=== PATIENT | male | born 1940 | race Caucasian/White ===

== ENCOUNTER 2017-05-28 15:50 | Observation (INO) | payer MEDICARE, BC, OTHER ==
[2017-05-28 16:27] LABS: Anisocytosis Slight; Basophils # (A) 0.1 k/uL (0-0.2); Basophils % (A) 1 %; CH 30.2; Eosinophils # (A) 0.2 k/uL (0-0.7); Eosinophils % (A) 2 %; HCT 44.3 % (39.0-53.0); HDW 2.95; Luc # (Auto) 0.38; Luc % (Auto) 4; Lymphocytes # (A) 1.5 k/uL (1.0-4.8); Lymphocytes % (A) 18 %; MCH 30.2 pg (25.0-35.0); MCHC 33.9 g/dL (31.0-37.0); MCV 89.2 fL (80.0-100.0); Mean Platelet Volume 7.8; Monocytes # (A) 0.9 k/uL (0-1.0); Monocytes % (A) 11 %; Neutrophils # (A) 5.7 k/uL (1.3-7.7); Neutrophils % (A) 65 %; RBC 4.96 m/uL (4.30-5.90); RDW 18.4 % (11.5-15.5); WBC 8.8 k/uL (3.8-10.6); WBC (Perox) 8.91
[2017-05-28 16:30] LABS: Calcium 8.6 mg/dL (8.4-10.2); Potassium 4.9 mmol/L (3.5-5.1); Total Bilirubin 0.6 mg/dL (0.2-1.3)
[2017-05-28] MEDS ORDERED: IOHEXOL 350 MG/ML 25 ML BOTTLE (ORAL USE) PO PRN (16:37)
[2017-05-28 16:42] LABS: Amorphous Sediment,Urine Rare /hpf; Appearance,Urine Cloudy (Clear); Bacteria,Urine Moderate /hpf; Bilirubin,Urine Negative (Negative); Glucose,Urine (UA) Trace (Negative); Granular Casts,Urine 35 /lpf (0); Ketones,Urine Negative (Negative); Leukocyte Esterase,Urine Negative (Negative); Mucus,Urine Rare /hpf; Nitrite,Urine Negative (Negative); PH, Urine 5.5 (5.0-8.0); Particle Count 14702; Protein,Urine 2+ (Negative); RBC,Urine 4 /hpf (0-5); Specific Gravity,Urine 1.013 (1.001-1.035); Squamous Epithelial Cell,Urine <1 /hpf (0-4); UA Billing (MACRO vs. MICRO) MICRO; Urobilinogen,Urine <2.0 mg/dL (<2.0); WBC,Urine 3 /hpf (0-5)
--- NOTE | 2017-05-28 17:26 | CT ---
EXAMINATION TYPE: CT abdomen pelvis wo con DATE OF EXAM: 05/28/2017 COMPARISON: Renal ultrasound 01/05/[address] 11/07/2014 HISTORY: 76-year-old male with pain, Nausea, vomiting and diarrhea. CT DLP: 2249.60 mGycm. Automated exposure control for dose reduction was used. TECHNIQUE: Contiguous axial scanning of the abdomen and pelvis without IV contrast. Coronal and sagit gemma reconstructions performed. FINDINGS: Exam limited due to lack of contrast and patient's arms over their lower chest/upper abdomen. For the limitations due to large patient body habitus and positioning. Coronary vessel calcifications are present. There appears to be strandy and interstitial areas of sca rring in the lower lungs and calcified pleural plaques suggesting prior asbestos exposure. No pleural effusion. Noncontrast appearance of the liver, adrenal glands, spleen, and pancreas show no gross evidence of b owel. There is a 2.3 cm hypodense lesion lateral lower pole right kidney incompletely characterized on nonc ontrast CT but demonstrates fluid attenuation suggestive of a cyst. A cyst was also seen on prior 201 5 ultrasound. 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 No dilated small bowel, free fluid, or free air. No mesenteric or retroperitoneal lymphadenopathy seen. Some questionable mild wall thickening versus nondistention of the mid to distal sigmoid colon. No pe ricolonic inflammatory change. Bladder partially distended. Extensive artifact from metal at the patient's hips limiting visualizati on of the pelvis. No abnormal fluid collection is clearly identified and no definite lymphadenopathy is seen. Bones: Right hip total arthroplasty. On the left, there is redemonstrated antibiotic impregnated ceme nt arthroplasty with continued presence of the medial left acetabular wall, unchanged from 2015. Mult ilevel degenerative changes to the spine with a levoconvex diagnosis and grade 1 anterolistheses at L 4-L5 and L5-S1. A right-sided L5 pars defects may be present. IMPRESSION: 1. Cholelithiasis without CT findings to suggest acute cholecystitis. 2. Slight circumferential wall thickening of the mid to distal sigmoid could be secondary to mild co litis or underdistention. 3. Asbestos related pleural disease and some interstitial scarring at the lung bases. Chronic appear ing changes at both hips.
[2017-05-28] MEDS ORDERED: ACETAMINOPHEN TAB 325 MG TAB PO PRN (19:46)
[2017-05-28] MEDS ORDERED: NALOXONE 0.4 MG/ML 1 ML VIAL IV PRN (19:46)
[2017-05-28] MEDS ORDERED: BISMUTH SUBSALICYLATE 4,192 MG/240 ML BOTTLE PO PRN (19:49)
[2017-05-28] MEDS ORDERED: CALCIUM CARBONATE 500 MG CHEWABLE PO PRN (19:49)
[2017-05-28] MEDS ORDERED: IPRATROPIUM-ALBUTEROL 3 ML NEB INHALATION PRN (19:49)
[2017-05-28] MEDS ORDERED: ALBUTEROL NEBULIZED 2.5 MG/3 ML INHALATION PRN (19:49)
[2017-05-28] MEDS ORDERED: LOPERAMIDE 2 MG CAP PO PRN (19:49)
[2017-05-28] MEDS ORDERED: MELATONIN 3 MG TABLET PO PRN (19:49)
[2017-05-28] MEDS ORDERED: HYDROcodone/APAP 5-325MG 1 EACH TAB PO PRN (19:49)
[2017-05-28] MEDS ORDERED: MAGNESIUM HYDROXIDE 2,400 MG/10 ML CUP PO PRN (19:49)
[2017-05-28] MEDS ORDERED: MYLANTA PO PRN (19:49)
[2017-05-28] MEDS ORDERED: guaiFENesin SYRUP 100MG/5ML 200 MG/10 ML CUP PO PRN (19:49)
[2017-05-28] MEDS ORDERED: ONDANSETRON 4 MG TAB PO PRN (19:49)
--- NOTE | 2017-05-28 19:58 | ED ---
Abdominal Pain HPI - General Chief Complaint: Abdominal Pain Stated Complaint: abd pain Time Seen by Provider: 05/28/17 16:10 Source: patient, EMS Mode of arrival: EMS - History of Present Illness Initial Comments: This patient is a 76-year-old man who presents to be valid for left upper quadrant pain that is been going on since earlier today. The patient states that it started when he was eating his afternoon meal. He is not able to characterize it well. He notes that he had the onset of nausea and vomiting as well. The patient states that the pain gets worse if he presses on his abdomen. He has not noted any relieving factors. MD Complaint: abdominal pain -: hour(s) Location: [facility] Radiation: none Migration to: no migration Severity: moderate Consistency: constant Improves With: nothing Worsens With: nothing Associated Symptoms: nausea, vomiting - Related Data Home Medications Medication Instructions Recorded Confirmed Atorvastatin [Lipitor] 80 mg PO HS 10/29/14 06/12/17 Docusate Sodium [Dulcolax Stool 100 mg PO DAILY 10/29/14 06/12/17 Softener] Ferrous Sulfate [Feosol] 325 mg PO BID 10/29/14 06/12/17 Loratadine [Claritin] 10 mg PO DAILY 10/29/14 06/12/17 Melatonin 3 mg PO HS 10/29/14 06/12/17 Ondansetron [Zofran] 4 mg PO Q6HR PRN 10/29/14 06/12/17 guaiFENesin SYRUP 100MG/5ML 200 mg PO Q12H PRN 10/29/14 06/12/17 [Robitussin] Aspirin EC [Ecotrin] 325 mg PO DAILY 05/28/17 06/12/17 Bismuth Subsalicylate 262 mg PO Q4H PRN 05/28/17 06/12/17 [Pepto-Bismol] Calcium Carbonate [Tums] 500 mg PO Q6H PRN 05/28/17 06/12/17 Colchicine 0.6 mg PO BID 05/28/17 06/12/17 Famotidine [Pepcid] 20 mg PO QAM 05/28/17 06/12/17 Furosemide [Lasix] 20 mg PO Q48H 05/28/17 06/12/17 Insulin Aspart Protam & Aspart 10 unit SQ DAILY@1700 05/28/17 06/12/17 [NovoLOG MIX 70-30 Flexpen] Insulin Aspart Protam & Aspart 35 unit SQ DAILY@0900 05/28/17 06/12/17 [NovoLOG MIX 70-30 Flexpen] Insulin Lispro [humaLOG Kwikpen] See Protocol SQ ACHS 05/28/17 06/12/17 Ipratropium-Albuterol Nebulize 3 ml INHALATION RT-QID PRN 05/28/17 06/12/17 [Duoneb 0.5 mg-3 mg/3 ml Soln] Ketoconazole 2% Shampoo [Nizoral] 1 applic TOPICAL SUTH 05/28/17 06/12/17 Loperamide [Imodium] 2 mg PO Q6H PRN 05/28/17 06/12/17 Metoprolol Tartrate [Lopressor] 12.5 mg PO Q12H 05/28/17 06/12/17 Mirtazapine 7.5 mg PO HS 05/28/17 06/12/17 Mylanta 30 ml PO Q4H PRN 05/28/17 06/12/17 SILVER sulfADIAZINE Cream 1 applic TOPICAL DAILY PRN 05/28/17 06/12/17 [Silvadene 1% Cream] Tiotropium 18 Mcg/Puff [Spiriva] 1 cap INHALATION RT-DAILY 05/28/17 06/12/17 L.acidoph,Paracasei, B.lactis 1 cap PO BID 06/04/17 06/12/17 [Probiotic] Liraglutide [Victoza 2-Yazan] 1.8 mg SQ QAM 06/04/17 06/12/17 Tolnaftate [Tinactin Powder] 1 applic TOPICAL BID 06/04/17 06/12/17 Magnesium Hydroxide [Milk of 7,200 mg PO Q4H PRN 06/12/17 06/12/17 Magnesia Concentrate] Multivitamins, Thera [Multivitamin 1 tab PO DAILY 06/12/17 06/12/17 (formulary)] Previous Rx's Medication Instructions Recorded HYDROcodone/APAP 5-325MG [[place] 1 tab PO Q6HR PRN #30 tab 06/09/17 5-325] Levofloxacin [Levaquin] 250 mg PO DAILY #7 tablet 09/22/17 metroNIDAZOLE [Flagyl] 500 mg PO TID #21 tab 06/09/17 Allergies Allergy/AdvReac Type Severity Reaction Status Date / Time meropenem [From Merrem] Allergy Severe Rash/Hives Verified 06/12/17 17:44 Cephalosporins Allergy Unknown Verified 05/28/17 16:17 morphine Allergy Unknown Verified 06/12/17 17:44 Penicillins Allergy Unknown Verified 05/28/17 16:17 vancomycin Allergy Rash/Hives Verified 06/12/17 17:44 Review of Systems ROS Statement: Those systems with pertinent positive or pertinent negative responses have been documented in the HPI. ROS Other: All systems not noted in ROS Statement are negative. Limitations: ROS unobtainable due to patients medical condition (The ROS is limited as the patient does appear to have some mild underlying ) Constitutional: Denies: fever, chills Respiratory: Denies: cough, dyspnea Cardiovascular: Denies: chest pain, edema, syncope Gastrointestinal: Reports: abdominal pain, nausea, vomiting. Denies: diarrhea, constipation Genitourinary: Denies: dysuria, hematuria Musculoskeletal: Denies: back pain Skin: Denies: rash Neurological: Denies: headache, weakness, numbness Past Medical History Past Medical History: COPD, Diabetes Mellitus, Hyperlipidemia, Hypertension, Renal Disease Additional Past Medical History / Comment(s): Asbestos lung disease with fibrosis, gout, encephalopathy, DJD, obesity with BMI of 33, skin cancer, ongoing difficulties with the left total hip arthroplasty and these complications included joint infection which ultimately required removal of hardware and placement of antibiotic spacer., C. difficile colitis March 2014 History of Any Multi-Drug Resistant Organisms: MRSA, VRE Date of last positivie culture/infection: Oct 2013, 01/05/2015 MDRO Source:: left hip, URINE VRE Past Surgical History: Appendectomy, Orthopedic Surgery, Tonsillectomy Additional Past Surgical History / Comment(s): [place] Total knee replacements, right total hip replacement, total left hip July 2013 and revision September 2013 due to septic athritis, I&D of seroma of the left total hip 10/09/2013, hemorrhoid ligation which required suturing, EGD with biopsy with mild gastritis and small hiatal hernia, colonoscopy with diverticulosis and internal and external hemorrhoids. Past Anesthesia/Blood Transfusion Reactions: Previous Problems w/ Anesthesia, Postoperative Nausea & Vomiting (PONV) Past Psychological History: No Psychological Hx Reported Smoking Status: Former smoker Past Alcohol Use History: Rare Past Drug Use History: None Reported - Past Family History Mother Family Medical History: Myocardial Infarction ([place]) General Exam General appearance: alert, in no apparent distress, obese Head exam: Present: atraumatic, normocephalic Eye exam: Present: normal appearance. Absent: scleral icterus, conjunctival injection ENT exam: Present: mucous membranes dry Respiratory exam: Present: normal lung sounds bilaterally. Absent: respiratory distress, wheezes, rales, rhonchi, stridor Cardiovascular Exam: Present: regular rate, normal rhythm, normal heart sounds. Absent: systolic murmur, diastolic murmur, rubs, gallop GI/Abdominal exam: Present: soft, tenderness (Left upper quadrant), diminished bowel sounds. Absent: distended, guarding, rebound, rigid, mass, pulsatile mass , hernia Extremities exam: Present: normal inspection, normal capillary refill. Absent: pedal edema, calf tenderness Neurological exam: Present: alert Skin exam: Present: warm, dry, intact, normal color. Absent: rash Course Vital Signs 05/28/17 05/28/17 05/28/17 15:52 16:30 17:41 Temperature 97.9 F Pulse Rate 89 90 90 Respiratory 18 18 18 Rate Blood Pressure 102/66 108/65 125/80 O2 Sat by Pulse 92 L 100 100 Oximetry 05/28/17 05/28/17 19:09 20:08 Temperature Pulse Rate 89 80 Respiratory 18 16 Rate Blood Pressure 114/72 110/61 O2 Sat by Pulse 97 96 Oximetry Medical Decision Making - Lab Data Result diagrams: 05/31/17 08:14 05/31/17 08:14 Lab Results 05/28/17 05/28/17 05/28/17 Range/Units 16:04 16:04 16:04 WBC 8.8 (3.8-10.6) k/uL RBC 4.96 (4.30-5.90) m/uL Hgb 15.0 (13.0-17.5) gm/dL Hct 44.3 (39.0-53.0) % MCV 89.2 (80.0-100.0) fL MCH 30.2 (25.0-35.0) pg MCHC 33.9 (31.0-37.0) g/dL RDW 18.4 H (11.5-15.5) % Plt Count 224 (150-450) k/uL Neutrophils % 65 % Lymphocytes % 18 % Monocytes % 11 % Eosinophils % 2 % Basophils % 1 % Neutrophils # 5.7 (1.3-7.7) k/uL Lymphocytes # 1.5 (1.0-4.8) k/uL Monocytes # 0.9 (0-1.0) k/uL Eosinophils # 0.2 (0-0.7) k/uL Basophils # 0.1 (0-0.2) k/uL Anisocytosis Slight Sodium 136 L (137-145) mmol/L Potassium 4.9 (3.5-5.1) mmol/L Chloride 107 (98-107) mmol/L Carbon Dioxide 18 L (22-30) mmol/L Anion Gap 11 mmol/L BUN 58 H (9-20) mg/dL Creatinine 2.70 H (0.66-1.25) mg/dL Est GFR (MDRD) Af Amer 28 (>60 ml/min/1.73 sqM) Est GFR (MDRD) Non-Af 23 (>60 ml/min/1.73 sqM) Glucose 194 H (74-99) mg/dL Plasma Lactic Acid Wilber 1.0 (0.7-2.0) mmol/L Calcium 8.6 (8.4-10.2) mg/dL Total Bilirubin 0.6 (0.2-1.3) mg/dL AST 152 H (17-59) U/L ALT 190 H (21-72) U/L Alkaline Phosphatase 173 H (38-126) U/L Troponin I (0.000-0.034) ng/mL Total Protein 7.0 (6.3-8.2) g/dL Albumin 3.5 (3.5-5.0) g/dL Amylase 40 (30-110) U/L Lipase 184 (23-300) U/L Urine Color Urine Appearance (Clear) Urine pH (5.0-8.0) Ur Specific [place] (1.001-1.035) Urine Protein (Negative) Urine Glucose (UA) (Negative) Urine Ketones (Negative) Urine Blood (Negative) Urine Nitrite (Negative) Urine Bilirubin (Negative) Urine Urobilinogen (<2.0) mg/dL Ur Leukocyte Esterase (Negative) Urine RBC (0-5) /hpf Urine WBC (0-5) /hpf Ur Squamous Epith Cells (0-4) /hpf Amorphous Sediment (None) /hpf Urine Bacteria (None) /hpf Granular Casts (0) /lpf Urine Mucus (None) /hpf 05/28/17 05/28/17 Range/Units 16:04 16:20 WBC (3.8-10.6) k/uL RBC (4.30-5.90) m/uL Hgb (13.0-17.5) gm/dL Hct (39.0-53.0) % MCV (80.0-100.0) fL MCH (25.0-35.0) pg MCHC (31.0-37.0) g/dL RDW (11.5-15.5) % Plt Count (150-450) k/uL Neutrophils % % Lymphocytes % % Monocytes % % Eosinophils % % Basophils % % Neutrophils # (1.3-7.7) k/uL Lymphocytes # (1.0-4.8) k/uL Monocytes # (0-1.0) k/uL Eosinophils # (0-0.7) k/uL Basophils # (0-0.2) k/uL Anisocytosis Sodium (137-145) mmol/L Potassium (3.5-5.1) mmol/L Chloride (98-107) mmol/L Carbon Dioxide (22-30) mmol/L Anion Gap mmol/L BUN (9-20) mg/dL Creatinine (0.66-1.25) mg/dL Est GFR (MDRD) Af Amer (>60 ml/min/1.73 sqM) Est GFR (MDRD) Non-Af (>60 ml/min/1.73 sqM) Glucose (74-99) mg/dL Plasma Lactic Acid Wilber (0.7-2.0) mmol/L Calcium (8.4-10.2) mg/dL Total Bilirubin (0.2-1.3) mg/dL AST (17-59) U/L ALT (21-72) U/L Alkaline Phosphatase (38-126) U/L Troponin I 0.018 (0.000-0.034) ng/mL Total Protein (6.3-8.2) g/dL Albumin (3.5-5.0) g/dL Amylase (30-110) U/L Lipase (23-300) U/L Urine Color Yellow Urine Appearance Cloudy (Clear) Urine pH 5.5 (5.0-8.0) Ur Specific [place] 1.013 (1.001-1.035) Urine Protein 2+ H (Negative) Urine Glucose (UA) Trace H (Negative) Urine Ketones Negative (Negative) Urine Blood Moderate H (Negative) Urine Nitrite Negative (Negative) Urine Bilirubin Negative (Negative) Urine Urobilinogen <2.0 (<2.0) mg/dL Ur Leukocyte Esterase Negative (Negative) Urine RBC 4 (0-5) /hpf Urine WBC 3 (0-5) /hpf Ur Squamous Epith Cells <1 (0-4) /hpf Amorphous Sediment Rare H (None) /hpf Urine Bacteria Moderate H (None) /hpf Granular Casts 35 (0) /lpf Urine Mucus Rare H (None) /hpf Disposition Clinical Impression: Elevated liver enzymes, Abdominal pain Disposition: ADMITTED IP TO THIS HOSP Condition: Stable
[2017-05-28] MEDS: SYMBICORT 160-4.5 MCG INHALER INHALATION SCH (20:39)
[2017-05-28 20:47] LABS: Glucose,Whole Blood 143 mg/dL (75-99)
[2017-05-28] MEDS ORDERED: ANTIFUNGAL TOPICAL SCH (21:00)
[2017-05-28] MEDS ORDERED: FAMOTIDINE 20 MG TAB PO SCH (21:00)
[2017-05-28] MEDS: METOPROLOL TARTRATE 12.5 MG TAB PO SCH (22:55)
[2017-05-28] MEDS: MIRTAZAPINE 15 MG TAB PO SCH (22:56)
[2017-05-28] MEDS: SODIUM CHLORIDE 0.9% 1,000 ML IV SCH (23:39)
[2017-05-28] MEDS: KETOCONAZOLE 2% SHAMPOO 1 APPLIC/ML TOPICAL SCH (23:40)
[2017-05-28] MEDS: ATORVASTATIN 80 MG TAB PO SCH (23:40)
[2017-05-28] MEDS: MINERAL OIL-WHITE PETROLATUM 120 GM JAR TOPICAL SCH (23:41)
[2017-05-29] MEDS: SODIUM CHLORIDE 0.9% 1,000 ML IV SCH ×2 (05:41→17:01)
[2017-05-29] MEDS: SYMBICORT 160-4.5 MCG INHALER INHALATION SCH ×2 (07:31→20:17)
[2017-05-29 07:39] LABS: Glucose,Whole Blood 163 mg/dL (75-99)
[2017-05-29 07:54] LABS: Calcium 8.2 mg/dL (8.4-10.2); Potassium 4.7 mmol/L (3.5-5.1)
[2017-05-29] MEDS: TIOTROPIUM 18 MCG/PUFF INHALER INHALATION SCH (07:56)
[2017-05-29] MEDS: MINERAL OIL-WHITE PETROLATUM 120 GM JAR TOPICAL SCH ×2 (08:18→20:39)
[2017-05-29] MEDS: INSULIN LISPRO (humaLOG) 300 UNIT/3 ML VIAL SQ SCH ×4 (08:20→21:14)
[2017-05-29] MEDS: METOPROLOL TARTRATE 12.5 MG TAB PO SCH ×3 (08:26→21:09)
[2017-05-29] MEDS: LORATADINE 10 MG TAB PO SCH (08:29)
[2017-05-29] MEDS: FERROUS SULFATE 325 MG TAB PO SCH ×2 (08:29→17:02)
[2017-05-29] MEDS: DOCUSATE 100 MG CAP PO SCH (08:29)
[2017-05-29 08:44] LABS: Anisocytosis Slight; Aty Lym Flag Slight; CH 29.7; CHCM 33.2; HCT 38.4 % (39.0-53.0); HDW 2.87; HGB 12.8 gm/dL (13.0-17.5); MCH 30.1 pg (25.0-35.0); MCHC 33.4 g/dL (31.0-37.0); MCV 89.9 fL (80.0-100.0); Mean Platelet Volume 8.9; RBC 4.27 m/uL (4.30-5.90); RDW 18.2 % (11.5-15.5); WBC 8.1 k/uL (3.8-10.6); WBC (Perox) 8.25
[2017-05-29 08:57] LABS: Hemoglobin A1C 8.8 % (4.2-6.1)
--- NOTE | 2017-05-29 09:42 | P.HPIM ---
History of Present Illness H&P Date: 05/29/17 Chief Complaint: Abdominal Pain This 76-year-old male who presented to the emergency room on 2016 with a chief complaint of abdominal pain. The patient's pain is mostly on the left upper and lower quadrant. Patient states he's been experiencing nausea and vomiting for approximately one week but has had persistent diarrhea since 05/06/2017. The patient states during one of his vomiting episodes he swallowed his emesis back down and the patient states that it felt like it got stuck and that is when his abdominal pain began. The patient states prior to him experiencing nausea and vomiting his appetite was good and he was eating and drinking without problems. Patient is a history of COPD, diabetes mellitus, hypertension, hyperlipidemia, and chronic renal disease. He currently resides at [facility] on [facility]. The patient was admitted for further evaluation and consults were placed to Dr. West. Upon examination this morning, the patient states he is feeling better. He does have some abdominal pain upon palpation on the left upper and lower quadrant. He denies having any nausea or vomiting this morning. He remains NPO. The patient did work with therapy this morning and was able to sit on the side of the bed. Review of Systems GENERAL: Patient denies fever, chills, weight gain, or weight loss. RESPIRATORY: Denies dyspnea, cough, sputum production, or hemoptysis. CARDIOVASCULAR: Denies chest pain, pressure, palpitations, claudication, or arrhythmias. GI: Positive for abdominal pain and diarrhea. Denies incontinence, heartburn, nausea, constipation, or blood in the stool. : Denies urinary frequency, burning, dysuria, or cloudy urine. Denies blood in the urine. MUSCULOSKELETAL: Positive for generalized weakness. Denies pain or tenderness. Denies cramps, swelling, or decreased range of motion. Past Medical History Past Medical History: COPD, Diabetes Mellitus, Hyperlipidemia, Hypertension, Renal Disease Additional Past Medical History / Comment(s): Asbestos lung disease with fibrosis, gout, encephalopathy, DJD, obesity with BMI of 33, skin cancer, ongoing difficulties with the left total hip arthroplasty and these complications included joint infection which ultimately required removal of hardware and placement of antibiotic spacer., C. difficile colitis March 2014 History of Any Multi-Drug Resistant Organisms: MRSA, VRE Date of last positivie culture/infection: Oct 2013, 01/05/2015 MDRO Source:: left hip, URINE VRE Past Surgical History: Appendectomy, Orthopedic Surgery, Tonsillectomy Additional Past Surgical History / Comment(s): [place]ugio Total knee replacements, right total hip replacement, total left hip July 2013 and revision September 2013 due to septic athritis, I&D of seroma of the left total hip 10/09/2013, hemorrhoid ligation which required suturing, EGD with biopsy with mild gastritis and small hiatal hernia, colonoscopy with diverticulosis and internal and external hemorrhoids. Past Anesthesia/Blood Transfusion Reactions: Previous Problems w/ Anesthesia, Postoperative Nausea & Vomiting (PONV) Past Psychological History: No Psychological Hx Reported Smoking Status: Former smoker Past Alcohol Use History: Rare Additional Past Alcohol Use History / Comment(s): Patient was smoker 2 packs per day for 35 years and quit 40 years ago. He denies any medical marijuana, marijuana or street drug use. He occasionally drinks a beer. He is currently residing at [facility]. Normally he will be living at home with his . 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 Past Drug Use History: None Reported - Past Family History Mother Family Medical History: Myocardial Infarction ([place]) Medications and Allergies Home Medications Medication Instructions Recorded Confirmed Type Albuterol Nebulized [Ventolin 2.5 mg INHALATION RT-Q4H PRN 10/29/14 05/28/17 History Nebulized] Atorvastatin [Lipitor] 80 mg PO HS@2100 10/29/14 05/28/17 History Docusate Sodium [Dulcolax Stool 100 mg PO DAILY 10/29/14 05/28/17 History Softener] Ferrous Sulfate [Feosol] 325 mg PO BID@0900,1700 10/29/14 05/28/17 History Loratadine [Claritin] 10 mg PO DAILY@0900 10/29/14 05/28/17 History Melatonin 3 mg PO HS PRN 10/29/14 05/28/17 History Multivitamin [Men's Multi-Vitamin] 1 tab PO DAILY 10/29/14 05/28/17 History Ondansetron [Zofran] 4 mg PO Q6HR PRN 10/29/14 05/28/17 History guaiFENesin SYRUP 100MG/5ML 10 ml PO BID PRN 10/29/14 05/28/17 History [Robitussin] HYDROcodone/APAP 5-325MG [[place] 1 tab PO Q6HR PRN 01/06/15 05/28/17 History 5-325] Inzo Barrier Cream 1 applic TOPICAL BID 01/06/15 05/28/17 History Acetaminophen Tab [Tylenol Tab] 650 mg PO Q6H PRN 05/28/17 05/28/17 History Antifungal Powder 1 applic TOPICAL BID 05/28/17 05/28/17 History Aspirin EC [Ecotrin] 325 mg PO DAILY@1700 05/28/17 05/28/17 History Bismuth Subsalicylate 524 mg PO Q4H PRN 05/28/17 05/28/17 History [Pepto-Bismol] Budesonide/Formoterol Fumarate 2 puff INHALATION RT-BID 05/28/17 05/28/17 History [Symbicort 160-4.5 Mcg Inhaler] Calcium Carbonate [Tums] 500 mg PO Q6H PRN 05/28/17 05/28/17 History Colchicine 0.6 mg PO BID 05/28/17 05/28/17 History Dulaglutide [Trulicity] 0.75 mg SQ WE 05/28/17 05/28/17 History Famotidine [Pepcid] 20 mg PO DAILY 05/28/17 05/28/17 History Furosemide [Lasix] 20 mg PO Q48H 05/28/17 05/28/17 History Insulin Aspart Protam & Aspart 10 unit SQ DAILY@1700 05/28/17 05/28/17 History [NovoLOG MIX 70-30 Flexpen] Insulin Aspart Protam & Aspart 35 unit SQ DAILY@0905/28/17 05/28/17 History [NovoLOG MIX 70-30 Flexpen] Insulin Lispro [humaLOG Kwikpen] See Protocol SQ ACHS 05/28/17 05/28/17 History Ipratropium-Albuterol Nebulize 3 ml INHALATION RT-QID PRN 05/28/17 05/28/17 History [Duoneb 0.5 mg-3 mg/3 ml Soln] Ketoconazole 2% Shampoo [Nizoral] 1 applic TOPICAL SUTH 05/28/17 05/28/17 History Loperamide [Imodium] 2 mg PO QID PRN 05/28/17 05/28/17 History Magnesium Hydroxide [Milk of 2,400 mg PO Q4H PRN 05/28/17 05/28/17 History Magnesia] Metoprolol Tartrate [Lopressor] 12.5 mg PO BID 05/28/17 05/28/17 History Mirtazapine 7.5 mg PO HS@2100 05/28/17 05/28/17 History Mylanta 30 ml PO Q4H PRN 05/28/17 05/28/17 History SILVER sulfADIAZINE Cream 1 applic TOPICAL DAILY PRN 05/28/17 05/28/17 History [Silvadene 1% Cream] Tiotropium 18 Mcg/Puff [Spiriva] 1 cap INHALATION RT-DAILY 05/28/17 05/28/17 History Allergies Allergy/AdvReac Type Severity Reaction Status Date / Time meropenem [From Merrem] Allergy Severe Rash/Hives Verified 05/28/17 16:17 Cephalosporins Allergy Unknown Verified 05/28/17 16:17 morphine Allergy Unknown Verified 05/28/17 16:17 Penicillins Allergy Unknown Verified 05/28/17 16:17 vancomycin Allergy Rash/Hives Verified 05/28/17 16:17 Physical Exam Vitals: Vital Signs Temp Pulse Pulse Resp BP BP Pulse Ox 05/29/17 07:32 92 L 05/29/17 07:00 96.8 F L 77 18 115/69 96 05/28/17 22:52 96.7 F L 89 16 107/70 92 L 05/28/17 20:08 80 16 110/61 96 05/28/17 19:09 89 18 114/72 97 05/28/17 17:41 90 18 125/80 100 05/28/17 16:30 90 18 108/65 100 05/28/17 15:52 97.9 F 89 18 102/66 92 L Intake and Output 05/28/17 05/29/17 05/29/17 22:59 06:59 14:59 Other: Voiding Method Urinal Diaper # Voids 0 1 Weight 115.5 kg GENERAL: Alert and oriented. Appears in no acute distress. Pleasant. RESPIRATORY: Lungs clear bilaterally, diminished in the bases. No use of accessory muscles. Patient maintaining oxygen saturation greater than 92% on 2 L nasal cannula. CARDIOVASCULAR: Regular rhythm and rate. S1 and S2 noted. No JVD noted. EXTREMITIES: Slight discoloration noted to lower extremities. No edema noted. Palpable pedal pulses +2. ABDOMEN: Obese, soft and round, decreased bowel sounds auscultated 4 quadrants. Pain and tenderness noted to left upper and lower quadrant upon palpation. Results CBC & Chem 7: 05/29/17 07:01 05/29/17 07:01 Labs: Abnormal Lab Results - Last 24 Hours (Table) 05/28/17 05/28/17 05/28/17 Range/Units 16:04 16:04 16:20 RBC (4.30-5.90) m/uL Hgb (13.0-17.5) gm/dL Hct (39.0-53.0) % RDW 18.4 H (11.5-15.5) % Sodium 136 L (137-145) mmol/L Chloride (98-107) mmol/L Carbon Dioxide 18 L (22-30) mmol/L BUN 58 H (9-20) mg/dL Creatinine 2.70 H (0.66-1.25) mg/dL Glucose 194 H (74-99) mg/dL POC Glucose (mg/dL) (75-99) mg/dL Calcium (8.4-10.2) mg/dL AST 152 H (17-59) U/L ALT 190 H (21-72) U/L Alkaline Phosphatase 173 H (38-126) U/L Urine Protein 2+ H (Negative) Urine Glucose (UA) Trace H (Negative) Urine Blood Moderate H (Negative) Amorphous Sediment Rare H (None) /hpf Urine Bacteria Moderate H (None) /hpf Urine Mucus Rare H (None) /hpf 05/28/17 05/29/17 05/29/17 Range/Units 20:43 07:01 07:01 RBC 4.27 L (4.30-5.90) m/uL Hgb 12.8 L (13.0-17.5) gm/dL Hct 38.4 L (39.0-53.0) % RDW 18.2 H (11.5-15.5) % Sodium (137-145) mmol/L Chloride 110 H (98-107) mmol/L Carbon Dioxide 18 L (22-30) mmol/L BUN 60 H (9-20) mg/dL Creatinine 2.77 H (0.66-1.25) mg/dL Glucose 154 H (74-99) mg/dL POC Glucose (mg/dL) 143 H (75-99) mg/dL Calcium 8.2 L (8.4-10.2) mg/dL AST (17-59) U/L ALT (21-72) U/L Alkaline Phosphatase (38-126) U/L Urine Protein (Negative) Urine Glucose (UA) (Negative) Urine Blood (Negative) Amorphous Sediment (None) /hpf Urine Bacteria (None) /hpf Urine Mucus (None) /hpf 05/29/17 Range/Units 07:23 RBC (4.30-5.90) m/uL Hgb (13.0-17.5) gm/dL Hct (39.0-53.0) % RDW (11.5-15.5) % Sodium (137-145) mmol/L Chloride (98-107) mmol/L Carbon Dioxide (22-30) mmol/L BUN (9-20) mg/dL Creatinine (0.66-1.25) mg/dL Glucose (74-99) mg/dL POC Glucose (mg/dL) 163 H (75-99) mg/dL Calcium (8.4-10.2) mg/dL AST (17-59) U/L ALT (21-72) U/L Alkaline Phosphatase (38-126) U/L Urine Protein (Negative) Urine Glucose (UA) (Negative) Urine Blood (Negative) Amorphous Sediment (None) /hpf Urine Bacteria (None) /hpf Urine Mucus (None) /hpf Thrombosis Risk Factor Assmnt - Choose All That Apply Any of the Below Risk Factors Present?: Yes Each Factor Represents 1 point: Abnormal pulmonary function (COPD), Medical pt on bed rest, Obesity (BMI >25) Other Risk Factors: Yes Each Risk Factor Represents 2 Points: Patient confined to bed Each Risk Factor Represents 3 Points: Age 75 years or older Thrombosis Risk Factor Assessment Total Risk Factor Score: 8 Thrombosis Risk Factor Assessment Level: High Risk Assessment and Plan Plan: ASSESSMENT: -Abdominal pain, present on admission, CT of the abdomen reveals cholelithiasis and possible mild colitis -Nausea and vomiting, present on admission -History of chronic kidney disease -Hypertension -History of COPD, no evidence of acute exacerbation -History of diabetes mellitus, type II -Obesity, BMI 34.5 PLAN: -Await further recommendations from Dr. West -Keep patient NPO, ok for meds with small sip of water -Resume home meds -Continue IV hydration at 100 mL an hour -GI prophylaxis: Protonix 40 mg IV daily -DVT prophylaxis: Heparin 5000 units subcu every 8 hours -Monitor vital signs and address as appropriate -Monitor labs The above impression and plan of care have been discussed and directed by signing physician. Julieta Rojo, nurse practitioner, acting as scribe for signing physician.
[2017-05-29 10:43] LABS: Add Differential Manual Differential
[2017-05-29 10:45] LABS: Nucleated Red Blood Cells 0 /100 WBC (0-0); Total Cells Counted 100
[2017-05-29] MEDS: PANTOPRAZOLE 40 MG/10 ML VIAL IVP SCH (10:51)
[2017-05-29 12:19] LABS: Glucose,Whole Blood 147 mg/dL (75-99)
[2017-05-29] MEDS: MULTIVITAMINS, THERA 1 EACH TAB PO SCH (12:57)
--- NOTE | 2017-05-29 14:54 | P.GSCN ---
History of Present Illness Consult date: 05/29/17 Reason for Consult: Intractable vomiting, pain History of present illness: Patient came to the hospital with complaints of left-sided abdominal pain for the last 2-3 days. He has had issues with intermittent nausea and vomiting for the last few weeks. He has chronic diarrhea. He says that when he was having his normal meal on Monday evening he had an episode of emesis that he tried to stop by closing his glottis and had increased pain following that. He points to the left lower quadrant however as the site of discomfort. Denies epigastric or right upper quadrant pain. He was found have elevated liver enzymes. He has a history of known gallstones. CAT scan was reviewed which shows a single prominent gallstone. No inflammatory changes are seen. Stomach is somewhat distended. There was questionable thickening of the mid sigmoid although I believe this is related to under distention. Denies rectal bleeding or melena. No fevers. Pain is improved today. Elevation of ALT and AST seems to be new however he has had chronic elevation of his alkaline phosphatase. Bilirubin is normal. Amylase and lipase are normal. He has last upper endoscopy he states was a proximally 4 years ago. He had a upper GI small bowel series in 2013 that showed presbyesophagus area Review of Systems The patient denies any acute changes in vision or hearing, no dysphagia or odynophagia, no chest pain or shortness of breath, no dysuria or hematuria, no headache, no runny nose, no rectal bleeding or melena, no unexplained weight loss Past Medical History Past Medical History: COPD, Diabetes Mellitus, Hyperlipidemia, Hypertension, Renal Disease Additional Past Medical History / Comment(s): Asbestos lung disease with fibrosis, gout, encephalopathy, DJD, obesity with BMI of 33, skin cancer, ongoing difficulties with the left total hip arthroplasty and these complications included joint infection which ultimately required removal of hardware and placement of antibiotic spacer., C. difficile colitis March 2014 History of Any Multi-Drug Resistant Organisms: MRSA, VRE Year Discovered:: Oct 2013, 01/05/2015 MDRO Source:: left hip, URINE VRE Past Surgical History: Appendectomy, Orthopedic Surgery, Tonsillectomy Additional Past Surgical History / Comment(s): [place] Total knee replacements, right total hip replacement, total left hip July 2013 and revision September 2013 due to septic athritis, I&D of seroma of the left total hip 10/09/2013, hemorrhoid ligation which required suturing, EGD with biopsy with mild gastritis and small hiatal hernia, colonoscopy with diverticulosis and internal and external hemorrhoids. Past Anesthesia/Blood Transfusion Reactions: Previous Problems w/ Anesthesia, Postoperative Nausea & Vomiting (PONV) Past Psychological History: No Psychological Hx Reported Smoking Status: Former smoker Past Alcohol Use History: Rare Additional Past Alcohol Use History / Comment(s): Patient was smoker 2 packs per day for 35 years and quit 40 years ago. He denies any medical marijuana, marijuana or street drug use. He occasionally drinks a beer. He is currently residing at [facility]. Normally he will be living at home with his . 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 Past Drug Use History: None Reported - Past Family History Mother Family Medical History: Myocardial Infarction ([place]) Medications and Allergies Home Medications Medication Instructions Recorded Confirmed Type Albuterol Nebulized [Ventolin 2.5 mg INHALATION RT-Q4H PRN 10/29/14 05/28/17 History Nebulized] Atorvastatin [Lipitor] 80 mg PO HS@2100 10/29/14 05/28/17 History Docusate Sodium [Dulcolax Stool 100 mg PO DAILY 10/29/14 05/28/17 History Softener] Ferrous Sulfate [Feosol] 325 mg PO BID@0900,1700 10/29/14 05/28/17 History Loratadine [Claritin] 10 mg PO DAILY@0900 10/29/14 05/28/17 History Melatonin 3 mg PO HS PRN 10/29/14 05/28/17 History Multivitamin [Men's Multi-Vitamin] 1 tab PO DAILY 10/29/14 05/28/17 History Ondansetron [Zofran] 4 mg PO Q6HR PRN 10/29/14 05/28/17 History guaiFENesin SYRUP 100MG/5ML 10 ml PO BID PRN 10/29/14 05/28/17 History [Robitussin] HYDROcodone/APAP 5-325MG [[place] 1 tab PO Q6HR PRN 01/06/15 05/28/17 History 5-325] Inzo Barrier Cream 1 applic TOPICAL BID 01/06/15 05/28/17 History Acetaminophen Tab [Tylenol Tab] 650 mg PO Q6H PRN 05/28/17 05/28/17 History Antifungal Powder 1 applic TOPICAL BID 05/28/17 05/28/17 History Aspirin EC [Ecotrin] 325 mg PO DAILY@1700 05/28/17 05/28/17 History Bismuth Subsalicylate 524 mg PO Q4H PRN 05/28/17 05/28/17 History [Pepto-Bismol] Budesonide/Formoterol Fumarate 2 puff INHALATION RT-BID 05/28/17 05/28/17 History [Symbicort 160-4.5 Mcg Inhaler] Calcium Carbonate [Tums] 500 mg PO Q6H PRN 05/28/17 05/28/17 History Colchicine 0.6 mg PO BID 05/28/17 05/28/17 History Dulaglutide [Trulicity] 0.75 mg SQ WE 05/28/17 05/28/17 History Famotidine [Pepcid] 20 mg PO DAILY 05/28/17 05/28/17 History Furosemide [Lasix] 20 mg PO Q48H 05/28/17 05/28/17 History Insulin Aspart Protam & Aspart 10 unit SQ DAILY@1700 05/28/17 05/28/17 History [NovoLOG MIX 70-30 Flexpen] Insulin Aspart Protam & Aspart 35 unit SQ DAILY@0900 05/28/17 05/28/17 History [NovoLOG MIX 70-30 Flexpen] Insulin Lispro [humaLOG Kwikpen] See Protocol SQ ACHS 05/28/17 05/28/17 History Ipratropium-Albuterol Nebulize 3 ml INHALATION RT-QID PRN 05/28/17 05/28/17 History [Duoneb 0.5 mg-3 mg/3 ml Soln] Ketoconazole 2% Shampoo [Nizoral] 1 applic TOPICAL SUTH 05/28/17 05/28/17 History Loperamide [Imodium] 2 mg PO QID PRN 05/28/17 05/28/17 History Magnesium Hydroxide [Milk of 2,400 mg PO Q4H PRN 05/28/17 05/28/17 History Magnesia] Metoprolol Tartrate [Lopressor] 12.5 mg PO BID 05/28/17 05/28/17 History Mirtazapine 7.5 mg PO HS@2100 05/28/17 05/28/17 History Mylanta 30 ml PO Q4H PRN 05/28/17 05/28/17 History SILVER sulfADIAZINE Cream 1 applic TOPICAL DAILY PRN 05/28/17 05/28/17 History [Silvadene 1% Cream] Tiotropium 18 Mcg/Puff [Spiriva] 1 cap INHALATION RT-DAILY 05/28/17 05/28/17 History Allergies Allergy/AdvReac Type Severity Reaction Status Date / Time meropenem [From Merrem] Allergy Severe Rash/Hives Verified 05/28/17 16:17 Cephalosporins Allergy Unknown Verified 05/28/17 16:17 morphine Allergy Unknown Verified 05/28/17 16:17 Penicillins Allergy Unknown Verified 05/28/17 16:17 vancomycin Allergy Rash/Hives Verified 05/28/17 16:17 Surgical - Exam Vital Signs Temp Pulse Resp BP Pulse Ox 97.9 F 89 18 102/66 92 L 05/28/17 15:52 05/28/17 15:52 05/28/17 15:52 05/28/17 15:52 05/28/17 15:52 Physical exam: General: Well-developed, well-nourished HEENT: Normocephalic, sclerae nonicteric Abdomen: Mild left mid abdominal tenderness, nondistended Extremities: No edema Neuro: Alert and oriented Results - Labs 05/29/17 07:01 05/29/17 07:01 Abnormal Lab Results - Last 24 Hours (Table) 05/28/17 05/28/17 05/28/17 Range/Units 16:04 16:04 16:20 RBC (4.30-5.90) m/uL Hgb (13.0-17.5) gm/dL Hct (39.0-53.0) % RDW 18.4 H (11.5-15.5) % Sodium 136 L (137-145) mmol/L Chloride (98-107) mmol/L Carbon Dioxide 18 L (22-30) mmol/L BUN 58 H (9-20) mg/dL Creatinine 2.70 H (0.66-1.25) mg/dL Glucose 194 H (74-99) mg/dL POC Glucose (mg/dL) (75-99) mg/dL Hemoglobin A1c (4.2-6.1) % Calcium (8.4-10.2) mg/dL AST 152 H (17-59) U/L ALT 190 H (21-72) U/L Alkaline Phosphatase 173 H (38-126) U/L Urine Protein 2+ H (Negative) Urine Glucose (UA) Trace H (Negative) Urine Blood Moderate H (Negative) Amorphous Sediment Rare H (None) /hpf Urine Bacteria Moderate H (None) /hpf Urine Mucus Rare H (None) /hpf 05/28/17 05/29/17 05/29/17 Range/Units 20:43 00:29 07:01 RBC 4.27 L (4.30-5.90) m/uL Hgb 12.8 L (13.0-17.5) gm/dL Hct 38.4 L (39.0-53.0) % RDW 18.2 H (11.5-15.5) % Sodium (137-145) mmol/L Chloride (98-107) mmol/L Carbon Dioxide (22-30) mmol/L BUN (9-20) mg/dL Creatinine (0.66-1.25) mg/dL Glucose (74-99) mg/dL POC Glucose (mg/dL) 143 H (75-99) mg/dL Hemoglobin A1c 8.8 H (4.2-6.1) % Calcium (8.4-10.2) mg/dL AST (17-59) U/L ALT (21-72) U/L Alkaline Phosphatase (38-126) U/L Urine Protein (Negative) Urine Glucose (UA) (Negative) Urine Blood (Negative) Amorphous Sediment (None) /hpf Urine Bacteria (None) /hpf Urine Mucus (None) /hpf 05/29/17 05/29/17 05/29/17 Range/Units 07:01 07:23 12:07 RBC (4.30-5.90) m/uL Hgb (13.0-17.5) gm/dL Hct (39.0-53.0) % RDW (11.5-15.5) % Sodium (137-145) mmol/L Chloride 110 H (98-107) mmol/L Carbon Dioxide 18 L (22-30) mmol/L BUN 60 H (9-20) mg/dL Creatinine 2.77 H (0.66-1.25) mg/dL Glucose 154 H (74-99) mg/dL POC Glucose (mg/dL) 163 H 147 H (75-99) mg/dL Hemoglobin A1c (4.2-6.1) % Calcium 8.2 L (8.4-10.2) mg/dL AST (17-59) U/L ALT (21-72) U/L Alkaline Phosphatase (38-126) U/L Urine Protein (Negative) Urine Glucose (UA) (Negative) Urine Blood (Negative) Amorphous Sediment (None) /hpf Urine Bacteria (None) /hpf Urine Mucus (None) /hpf Diabetes panel 05/28/17 05/29/17 05/29/17 Range/Units 16:04 00:29 07:01 Sodium 136 L 139 (137-145) mmol/L Potassium 4.9 4.7 (3.5-5.1) mmol/L Chloride 107 110 H (98-107) mmol/L Carbon Dioxide 18 L 18 L (22-30) mmol/L BUN 58 H 60 H (9-20) mg/dL Creatinine 2.70 H 2.77 H (0.66-1.25) mg/dL Glucose 194 H 154 H (74-99) mg/dL Hemoglobin A1c 8.8 H (4.2-6.1) % Calcium 8.6 8.2 L (8.4-10.2) mg/dL AST 152 H (17-59) U/L ALT 190 H (21-72) U/L Alkaline Phosphatase 173 H (38-126) U/L Total Protein 7.0 (6.3-8.2) g/dL Albumin 3.5 (3.5-5.0) g/dL Calcium panel 05/28/17 05/29/17 Range/Units 16:04 07:01 Calcium 8.6 8.2 L (8.4-10.2) mg/dL Albumin 3.5 (3.5-5.0) g/dL Pituitary panel 05/28/17 05/29/17 Range/Units 16:04 07:01 Sodium 136 L 139 (137-145) mmol/L Potassium 4.9 4.7 (3.5-5.1) mmol/L Chloride 107 110 H (98-107) mmol/L Carbon Dioxide 18 L 18 L (22-30) mmol/L BUN 58 H 60 H (9-20) mg/dL Creatinine 2.70 H 2.77 H (0.66-1.25) mg/dL Glucose 194 H 154 H (74-99) mg/dL Calcium 8.6 8.2 L (8.4-10.2) mg/dL Adrenal panel 05/28/17 05/29/17 Range/Units 16:04 07:01 Sodium 136 L 139 (137-145) mmol/L Potassium 4.9 4.7 (3.5-5.1) mmol/L Chloride 107 110 H (98-107) mmol/L Carbon Dioxide 18 L 18 L (22-30) mmol/L BUN 58 H 60 H (9-20) mg/dL Creatinine 2.70 H 2.77 H (0.66-1.25) mg/dL Glucose 194 H 154 H (74-99) mg/dL Calcium 8.6 8.2 L (8.4-10.2) mg/dL Total Bilirubin 0.6 (0.2-1.3) mg/dL AST 152 H (17-59) U/L ALT 190 H (21-72) U/L Alkaline Phosphatase 173 H (38-126) U/L Total Protein 7.0 (6.3-8.2) g/dL Albumin 3.5 (3.5-5.0) g/dL Assessment and Plan (1) Abdominal pain Narrative/Plan: Will order esophagram/upper GI. Keep nothing by mouth for now. At least at this time choledocholithiasis or biliary colic seems to be unlikely as the etiology for his symptoms given the location of his pain. We'll follow closely with you. Status: Acute
[2017-05-29] MEDS: HEPARIN SODIUM,PORCINE 5,000 UNIT/ML 1 ML VIAL SQ SCH (17:01)
[2017-05-29] MEDS: ASPIRIN 325 MG TAB PO SCH (17:02)
[2017-05-29 17:16] LABS: Glucose,Whole Blood 111 mg/dL (75-99)
[2017-05-29] MEDS: ATORVASTATIN 80 MG TAB PO SCH (20:39)
[2017-05-29] MEDS: MIRTAZAPINE 15 MG TAB PO SCH ×2 (20:39→21:10)
[2017-05-29 21:20] LABS: Glucose,Whole Blood 160 mg/dL (75-99)
[2017-05-30] MEDS: HEPARIN SODIUM,PORCINE 5,000 UNIT/ML 1 ML VIAL SQ SCH ×3 (00:54→17:30)
[2017-05-30] MEDS: SODIUM CHLORIDE 0.9% 1,000 ML IV SCH ×3 (05:43→20:04)
[2017-05-30 07:01] LABS: Glucose,Whole Blood 136 mg/dL (75-99)
[2017-05-30] MEDS: SYMBICORT 160-4.5 MCG INHALER INHALATION SCH ×2 (07:52→19:48)
[2017-05-30] MEDS: TIOTROPIUM 18 MCG/PUFF INHALER INHALATION SCH (07:52)
[2017-05-30] MEDS: METOPROLOL TARTRATE 12.5 MG TAB PO SCH ×2 (08:04→19:59)
[2017-05-30] MEDS: LORATADINE 10 MG TAB PO SCH (08:04)
[2017-05-30] MEDS: FERROUS SULFATE 325 MG TAB PO SCH ×2 (08:04→17:31)
[2017-05-30] MEDS: INSULIN LISPRO (humaLOG) 300 UNIT/3 ML VIAL SQ SCH ×4 (08:05→20:48)
[2017-05-30] MEDS: PANTOPRAZOLE 40 MG/10 ML VIAL IVP SCH (08:05)
[2017-05-30] MEDS: DOCUSATE 100 MG CAP PO SCH (08:05)
[2017-05-30] MEDS: MINERAL OIL-WHITE PETROLATUM 120 GM JAR TOPICAL SCH ×2 (08:10→20:04)
[2017-05-30 08:55] LABS: Anisocytosis Slight; Aty Lym Flag Slight; CH 29.7; CHCM 32.7; HCT 39.6 % (39.0-53.0); HDW 2.97; HGB 13.1 gm/dL (13.0-17.5); MCH 30.2 pg (25.0-35.0); MCV 91.3 fL (80.0-100.0); RBC 4.34 m/uL (4.30-5.90); RDW 18.3 % (11.5-15.5); WBC 7.3 k/uL (3.8-10.6); WBC (Perox) 7.03
--- NOTE | 2017-05-30 09:11 | FL ---
EXAMINATION TYPE: FL UGI w esophagus w KUB DATE OF EXAM: 05/30/2017 COMPARISON: NONE HISTORY: Vomiting TECHNIQUE: A single contrast UGI study is performed. FINDINGS: Aircraft Pilot image of the abdomen shows pleural-based calcifications involving the lungs with sub segmental areas of consolidation. Exam is limited by the patient's condition difficulty with swallowing. There are numerous tertiary co ntractions of esophagus and mild gastroesophageal reflux. No obstruction. Evaluation the stomach limi sunny by the amount of contrast the patient could ingest. Grossly no obstruction. Duodenal bulb and swe ep have a normal appearance. Assessment for mass or mucosal lesion nondiagnostic. IMPRESSION: 1. Limited exam demonstrates no diagnostic evidence of obstruction. Correlate for dysmotility and wit h gastroesophageal reflux.
[2017-05-30 09:13] LABS: Calcium 8.1 mg/dL (8.4-10.2); Potassium 4.7 mmol/L (3.5-5.1); Total Bilirubin 0.6 mg/dL (0.2-1.3)
[2017-05-30 10:27] LABS: Add Differential Manual Differential
[2017-05-30 10:30] LABS: Nucleated Red Blood Cells 0 /100 WBC (0-0); Total Cells Counted 100
[2017-05-30] MEDS: MULTIVITAMINS, THERA 1 EACH TAB PO SCH (12:38)
--- NOTE | 2017-05-30 13:46 | P.PN ---
Subjective Principal diagnosis: 76-year-old male seen and examined on rounds with Dr. Jauregui. Patient presented to the emergency room on 05/28/2017 with a chief complaint of abdominal pain. The patient states he is doing well with minimal complaints. His is present at the bedside. He underwent an upper GI/barium swallow which was negative for obstruction, but did show mild gastroesophageal reflux. The study was limited due to the amount of contrast that the patient could consume. Patient's ALT and AST remain elevated. The patient has a chronically elevated alkaline phosphatase. His bilirubin is 0.6. Consult will be placed for GI per Dr Jauregui. The patient denies any abdominal pain at this time. He denies shortness of breath or chest pain. He is tolerating a clear liquid diet without nausea or vomiting. Objective - Vital Signs Vital signs: Vital Signs Temp 96.3 F L 05/30/17 07:00 Pulse 71 05/30/17 08:00 Resp 18 05/30/17 08:00 BP 115/59 05/30/17 07:00 Pulse Ox 92 L 05/30/17 07:00 Intake & Output 05/29/17 05/30/17 05/30/17 18:59 06:59 18:59 Other: Voiding Method Diaper Diaper Incontinent Incontinent # Voids 2 2 # Bowel Movements 3 - Exam GENERAL: Alert and oriented. Appears in no acute distress. Pleasant. RESPIRATORY: Lungs diminished, expiratory wheezing present. No use of accessory muscles. Patient maintaining oxygen saturation greater than 92%. CARDIOVASCULAR: Regular rhythm and rate. S1 and S2 noted. No JVD noted. EXTREMITIES: Slight discoloration noted to lower extremities. No edema noted. Palpable pedal pulses +2. ABDOMEN: Obese, soft and rounded. Bowel sounds auscultated 4 quadrants. No pain or tenderness noted upon palpation. - Labs CBC & Chem 7: 05/30/17 08:19 05/30/17 08:19 Labs: Abnormal Lab Results - Last 24 Hours (Table) 05/29/17 05/29/17 05/30/17 Range/Units 17:13 21:14 06:58 RDW (11.5-15.5) % Chloride (98-107) mmol/L Carbon Dioxide (22-30) mmol/L BUN (9-20) mg/dL Creatinine (0.66-1.25) mg/dL Glucose (74-99) mg/dL POC Glucose (mg/dL) 111 H 160 H 136 H (75-99) mg/dL Calcium (8.4-10.2) mg/dL AST (17-59) U/L ALT (21-72) U/L Alkaline Phosphatase (38-126) U/L Total Protein (6.3-8.2) g/dL Albumin (3.5-5.0) g/dL 05/30/17 05/30/17 Range/Units 08:19 08:19 RDW 18.3 H (11.5-15.5) % Chloride 112 H (98-107) mmol/L Carbon Dioxide 20 L (22-30) mmol/L BUN 49 H (9-20) mg/dL Creatinine 2.41 H (0.66-1.25) mg/dL Glucose 145 H (74-99) mg/dL POC Glucose (mg/dL) (75-99) mg/dL Calcium 8.1 L (8.4-10.2) mg/dL AST 104 H (17-59) U/L ALT 131 H (21-72) U/L Alkaline Phosphatase 143 H (38-126) U/L Total Protein 6.0 L (6.3-8.2) g/dL Albumin 2.8 L (3.5-5.0) g/dL Assessment and Plan Plan: ASSESSMENT: -Abdominal pain, present on admission, CT of the abdomen reveals cholelithiasis and possible mild colitis -Nausea and vomiting, present on admission, resolved -History of chronic kidney disease, Stage 4, GFR 26 -Essential Hypertension -History of COPD, no evidence of acute exacerbation -History of diabetes mellitus, type II -Obesity, BMI 34.5 -Elevated LFTs with chronic elevated alkaline phosphatase, and normal bilirubin : unknown etiology PLAN: -Surgery on consult, Dr. West, appreciate recommendations and input -Will advance diet to full liquid -Continue IV hydration at 100 mL an hour -GI prophylaxis: Protonix 40 mg IV daily -DVT prophylaxis: Heparin 5000 units subcu every 8 hours -Monitor vital signs and address as appropriate -Continue Humalog sliding scale -Monitor capillary blood glucose and address as appropriate -Monitor labs -Consult GI due to elevated AST/ALT The above impression and plan of care have been discussed and directed by signing physician. Julieta Rojo, nurse practitioner, acting as scribe for signing physician.
[2017-05-30 15:54] LABS: Glucose,Whole Blood 132 mg/dL (75-99)
[2017-05-30 17:00] LABS: Glucose,Whole Blood 163 mg/dL (75-99)
[2017-05-30] MEDS: ASPIRIN 325 MG TAB PO SCH (17:30)
--- NOTE | 2017-05-30 18:21 | P.PN ---
Subjective Principal diagnosis: Dysphagia Patient says his swallowing is better today. He is on a full liquid diet. His upper GI shows no evidence of leak or obstruction. His abdominal pain is absent at this time. Objective - Vital Signs Vital signs: Vital Signs Temp 97.0 F L 05/30/17 15:22 Pulse 72 05/30/17 16:00 Resp 20 05/30/17 16:00 BP 115/59 05/30/17 07:00 Pulse Ox 98 05/30/17 15:22 Intake & Output 05/29/17 05/30/17 05/30/17 18:59 06:59 18:59 Intake Total 200 Balance 200 Intake: Oral 200 Other: Voiding Method Diaper Diaper Incontinent Incontinent # Voids 2 2 1 # Bowel Movements 3 1 - Exam Abdomen: Soft, nondistended, mild tenderness - Labs CBC & Chem 7: 05/30/17 08:19 05/30/17 08:19 Labs: Abnormal Lab Results - Last 24 Hours (Table) 05/29/17 05/30/17 05/30/17 Range/Units 21:14 06:58 08:19 RDW 18.3 H (11.5-15.5) % Chloride (98-107) mmol/L Carbon Dioxide (22-30) mmol/L BUN (9-20) mg/dL Creatinine (0.66-1.25) mg/dL Glucose (74-99) mg/dL POC Glucose (mg/dL) 160 H 136 H (75-99) mg/dL Calcium (8.4-10.2) mg/dL AST (17-59) U/L ALT (21-72) U/L Alkaline Phosphatase (38-126) U/L Total Protein (6.3-8.2) g/dL Albumin (3.5-5.0) g/dL 05/30/17 05/30/17 05/30/17 Range/Units 08:19 11:53 16:58 RDW (11.5-15.5) % Chloride 112 H (98-107) mmol/L Carbon Dioxide 20 L (22-30) mmol/L BUN 49 H (9-20) mg/dL Creatinine 2.41 H (0.66-1.25) mg/dL Glucose 145 H (74-99) mg/dL POC Glucose (mg/dL) 132 H 163 H (75-99) mg/dL Calcium 8.1 L (8.4-10.2) mg/dL AST 104 H (17-59) U/L ALT 131 H (21-72) U/L Alkaline Phosphatase 143 H (38-126) U/L Total Protein 6.0 L (6.3-8.2) g/dL Albumin 2.8 L (3.5-5.0) g/dL Assessment and Plan (1) Abdominal pain Narrative/Plan: Continue liquid diet. Advance as tolerated. No upper endoscopy planned at this time unless his abdominal pain recurs. Still feel that choledocholithiasis as the source of his elevated liver enzymes is unlikely given the presentation. If liver enzymes remain elevated consider GI evaluation Status: Acute
[2017-05-30] MEDS: MIRTAZAPINE 15 MG TAB PO SCH (19:58)
[2017-05-30] MEDS: ATORVASTATIN 80 MG TAB PO SCH (19:59)
[2017-05-30] MEDS: KETOCONAZOLE 2% SHAMPOO 1 APPLIC/ML TOPICAL SCH (20:03)
[2017-05-30 20:21] LABS: Glucose,Whole Blood 192 mg/dL (75-99)
[2017-05-31] MEDS: HEPARIN SODIUM,PORCINE 5,000 UNIT/ML 1 ML VIAL SQ SCH ×2 (00:09→07:57)
[2017-05-31] MEDS: SYMBICORT 160-4.5 MCG INHALER INHALATION SCH (07:24)
[2017-05-31] MEDS: TIOTROPIUM 18 MCG/PUFF INHALER INHALATION SCH (07:24)
[2017-05-31 07:32] LABS: Glucose,Whole Blood 176 mg/dL (75-99)
[2017-05-31] MEDS: FERROUS SULFATE 325 MG TAB PO SCH (07:56)
[2017-05-31] MEDS: METOPROLOL TARTRATE 12.5 MG TAB PO SCH (07:56)
[2017-05-31] MEDS: PANTOPRAZOLE 40 MG/10 ML VIAL IVP SCH (07:56)
[2017-05-31] MEDS: LORATADINE 10 MG TAB PO SCH (07:57)
[2017-05-31] MEDS: DOCUSATE 100 MG CAP PO SCH (07:57)
[2017-05-31] MEDS: INSULIN LISPRO (humaLOG) 300 UNIT/3 ML VIAL SQ SCH ×2 (07:57→12:34)
[2017-05-31] MEDS: SODIUM CHLORIDE 0.9% 1,000 ML IV SCH (07:58)
[2017-05-31] MEDS: MINERAL OIL-WHITE PETROLATUM 120 GM JAR TOPICAL SCH (07:58)
[2017-05-31 08:51] LABS: Calcium 8.3 mg/dL (8.4-10.2); Potassium 4.5 mmol/L (3.5-5.1); Total Bilirubin 0.6 mg/dL (0.2-1.3); Total Protein 6.4 g/dL (6.3-8.2)
--- NOTE | 2017-05-31 09:54 | P.CONS ---
History of Present Illness - Reason for Consult Consult date: 05/31/17 Elevated liver enzymes Requesting physician: Jim Gross - History of Present Illness 76-year-old gentleman with a history of lifelong obesity as heavy as 400 pounds , hypertension, hyperlipidemia, diabetes mellitus more than 10 years, suspicious lung disease, renal disease, gout, and Clostridium difficile colitis. Patient presents with left upper quadrant abdominal pain after eating meal on Monday. This pain has been intermittent for the last few weeks nothing chronic. Denies fever chills hematemesis hematochezia melena diarrhea or constipation. Intermittent nausea no ernesto emesis. Denies changes in the color urine or stool. No unintentional weight loss. Consultation requested for elevated liver enzymes. Admission liver chemistries total bilirubin 0.6. AST 152. ALT 190. Alkaline phosphatase 173. Lipase 184. Today liver enzymes; total bilirubin 0.6. AST 107. ALT 143. Alkaline phosphatase 163. No history of hepatitis alcoholism or known liver disorders. No recent medication changes. Upon review of previous medical records hepatitis screen in 2015 negative. Transaminases for the most part over the last years have been within normal limits with the exception of a few isolated episodes AST/ALT 40-100 range however alkaline phosphatase consistently elevated over the last few years between 140-[address] abdomen and pelvis reported cholelithiasis without CT findings to suggest acute cholecystitis. No intra-/extra hepatic ductal dilatation. No mentioning of pancreatic mass. Presently patient is resting comfortably without abdominal pain tolerating a full liquid diet. Review of Systems Constitutional: Denies fever, chills, sweats, weight gain, or loss. HEENT: Negative for migraines, blurred vision or loss, earaches, drainage, tinnitus, oral mucosal lesions, dysphagia, or odynophagia. Cardiac: Hypertension. Hyperlipidemia. Negative for chest pain, arrhythmias, or palpitation. Respiratory: COPD. Asbestos lung disease with fibrosis. Negative for shortness of breath, hemoptysis, cough, or sputum production. Gastrointestinal: See HPI for pertinent findings. Genitourinary: Negative for hematuria, urgency, frequency, polyuria, dysuria, or penile discharge. Musculoskeletal: Negative for muscle aches, swelling, arthritis, and arthralgias. Neurologic: Negative for stroke or TIA. Endocrine: Negative for thyroid problems. Diabetes. Skin: Negative for rash or itching. Psychiatric: Negative history for depression and anxiety All systems: negative (See HPI) Past Medical History Past Medical History: COPD, Diabetes Mellitus, Hyperlipidemia, Hypertension, Renal Disease Additional Past Medical History / Comment(s): Asbestos lung disease with fibrosis, gout, encephalopathy, DJD, obesity with BMI of 33, skin cancer, ongoing difficulties with the left total hip arthroplasty and these complications included joint infection which ultimately required removal of hardware and placement of antibiotic spacer., C. difficile colitis March 2014 History of Any Multi-Drug Resistant Organisms: ESBL, MRSA, VRE Year Discovered:: 01/05/15-VRE; 10/21/14 MRSA MDRO Source:: Urine-VRE & ESBL; Left Hip-MRSA Past Surgical History: Appendectomy, Orthopedic Surgery, Tonsillectomy Additional Past Surgical History / Comment(s): [place] Total knee replacements, right total hip replacement, total left hip July 2013 and revision September 2013 due to septic athritis, I&D of seroma of the left total hip 10/09/2013, hemorrhoid ligation which required suturing, EGD with biopsy with mild gastritis and small hiatal hernia, colonoscopy with diverticulosis and internal and external hemorrhoids. Past Anesthesia/Blood Transfusion Reactions: Previous Problems w/ Anesthesia, Postoperative Nausea & Vomiting (PONV) Past Psychological History: No Psychological Hx Reported Smoking Status: Former smoker Past Alcohol Use History: Rare Additional Past Alcohol Use History / Comment(s): Patient was smoker 2 packs per day for 35 years and quit 40 years ago. He denies any medical marijuana, marijuana or street drug use. He occasionally drinks a beer. He is currently residing at [facility]. Normally he will be living at home with his . 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 Past Drug Use History: None Reported - Past Family History Mother Family Medical History: Myocardial Infarction (NH) Medications and Allergies Home Medications Medication Instructions Recorded Confirmed Type Albuterol Nebulized [Ventolin 2.5 mg INHALATION RT-Q4H PRN 10/29/14 05/28/17 History Nebulized] Atorvastatin [Lipitor] 80 mg PO HS@2100 10/29/14 05/28/17 History Docusate Sodium [Dulcolax Stool 100 mg PO DAILY 10/29/14 05/28/17 History Softener] Ferrous Sulfate [Feosol] 325 mg PO BID@0900,1700 10/29/14 05/28/17 History Loratadine [Claritin] 10 mg PO DAILY@0900 10/29/14 05/28/17 History Melatonin 3 mg PO HS PRN 10/29/14 05/28/17 History Multivitamin [Men's Multi-Vitamin] 1 tab PO DAILY 10/29/14 05/28/17 History Ondansetron [Zofran] 4 mg PO Q6HR PRN 10/29/14 05/28/17 History guaiFENesin SYRUP 100MG/5ML 10 ml PO BID PRN 10/29/14 05/28/17 History [Robitussin] HYDROcodone/APAP 5-325MG [[place]cl[place] 1 tab PO Q6HR PRN 01/06/15 05/28/17 History 5-325] Inzo Barrier Cream 1 applic TOPICAL BID 01/06/15 05/28/17 History Antifungal Powder 1 applic TOPICAL BID 05/28/17 05/28/17 History Aspirin EC [Ecotrin] 325 mg PO DAILY@1700 05/28/17 05/28/17 History Bismuth Subsalicylate 524 mg PO Q4H PRN 05/28/17 05/28/17 History [Pepto-Bismol] Budesonide/Formoterol Fumarate 2 puff INHALATION RT-BID 05/28/17 05/28/17 History [Symbicort 160-4.5 Mcg Inhaler] Calcium Carbonate [Tums] 500 mg PO Q6H PRN 05/28/17 05/28/17 History Colchicine 0.6 mg PO BID 05/28/17 05/28/17 History Dulaglutide [Trulicity] 0.75 mg SQ WE 05/28/17 05/28/17 History Famotidine [Pepcid] 20 mg PO DAILY 05/28/17 05/28/17 History Furosemide [Lasix] 20 mg PO Q48H 05/28/17 05/28/17 History Insulin Aspart Protam & Aspart 10 unit SQ DAILY@1700 05/28/17 05/28/17 History [NovoLOG MIX 70-30 Flexpen] Insulin Aspart Protam & Aspart 35 unit SQ DAILY@0900 05/28/17 05/28/17 History [NovoLOG MIX 70-30 Flexpen] Insulin Lispro [humaLOG Kwikpen] See Protocol SQ ACHS 05/28/17 05/28/17 History Ipratropium-Albuterol Nebulize 3 ml INHALATION RT-QID PRN 05/28/17 05/28/17 History [Duoneb 0.5 mg-3 mg/3 ml Soln] Ketoconazole 2% Shampoo [Nizoral] 1 applic TOPICAL SUTH 05/28/17 05/28/17 History Loperamide [Imodium] 2 mg PO QID PRN 05/28/17 05/28/17 History Magnesium Hydroxide [Milk of 2,400 mg PO Q4H PRN 05/28/17 05/28/17 History Magnesia] Metoprolol Tartrate [Lopressor] 12.5 mg PO BID 05/28/17 05/28/17 History Mirtazapine 7.5 mg PO HS@2100 05/28/17 05/28/17 History Mylanta 30 ml PO Q4H PRN 05/28/17 05/28/17 History SILVER sulfADIAZINE Cream 1 applic TOPICAL DAILY PRN 05/28/17 05/28/17 History [Silvadene 1% Cream] Tiotropium 18 Mcg/Puff [Spiriva] 1 cap INHALATION RT-DAILY 05/28/17 05/28/17 History Allergies Allergy/AdvReac Type Severity Reaction Status Date / Time meropenem [From Merrem] Allergy Severe Rash/Hives Verified 05/28/17 16:17 Cephalosporins Allergy Unknown Verified 05/28/17 16:17 morphine Allergy Unknown Verified 05/28/17 16:17 Penicillins Allergy Unknown Verified 05/28/17 16:17 vancomycin Allergy Rash/Hives Verified 05/28/17 16:17 Physical Exam Vitals: Vital Signs Temp Pulse Resp BP Pulse Ox 05/31/17 07:00 97.2 F L 77 16 114/67 92 L 05/30/17 23:00 97.2 F L 82 18 127/68 93 L 05/30/17 19:48 98 05/30/17 16:00 72 20 05/30/17 15:22 97.0 F L 72 20 98 Intake and Output 05/30/17 05/31/17 05/31/17 22:59 06:59 14:59 Intake Total 200 200 Balance 200 200 Intake: Oral 200 200 Other: Voiding Method Diaper Diaper Incontinent Incontinent # Voids 2 2 # Bowel Movements 1 1 General appearance: The patient is alert, oriented, in no acute distress. HET: Head is normocephalic and atraumatic. Pupils are equal and reactive. Oropharynx is clear without lesions. Neck: Supple without lymphadenopathy. Trachea midline. Heart: S1 S2. Regular rate and rhythm. Lungs: No crackles or wheezes are heard. Abdomen: Soft, nontender, nondistended with bowel sounds. No peritoneal signs. No palpable organomegaly or masses. Extremities: Normal skin color and turgor. No cyanosis, rash, ulceration, clubbing, or edema. Radial and pedal pulses are 2/4 bilaterally. Neurological: No focal deficits. Strength and sensation are grossly intact. Results CBC & Chem 7: 05/31/17 08:14 05/31/17 08:14 Labs: Abnormal Lab Results - Last 24 Hours (Table) 05/30/17 05/30/17 05/30/17 Range/Units 11:53 16:58 20:20 Chloride (98-107) mmol/L Carbon Dioxide (22-30) mmol/L BUN (9-20) mg/dL Creatinine (0.66-1.25) mg/dL Glucose (74-99) mg/dL POC Glucose (mg/dL) 132 H 163 H 192 H (75-99) mg/dL Calcium (8.4-10.2) mg/dL AST (17-59) U/L ALT (21-72) U/L Alkaline Phosphatase (38-126) U/L Albumin (3.5-5.0) g/dL 05/31/17 05/31/17 Range/Units 07:27 08:14 Chloride 111 H (98-107) mmol/L Carbon Dioxide 19 L (22-30) mmol/L BUN 42 H (9-20) mg/dL Creatinine 2.28 H (0.66-1.25) mg/dL Glucose 190 H (74-99) mg/dL POC Glucose (mg/dL) 176 H (75-99) mg/dL Calcium 8.3 L (8.4-10.2) mg/dL AST 107 H (17-59) U/L ALT 143 H (21-72) U/L Alkaline Phosphatase 163 H (38-126) U/L Albumin 3.0 L (3.5-5.0) g/dL CT scan - abdomen: report reviewed (Dr. Khan) Assessment and Plan Plan: Impression: 1. Elevated liver enzymes with normal bilirubin with a history of morbid obesity hypertension hyperlipidemia and diabetes mellitus. Fatty liver disease possible steatohepatitis within the differential choledocholithiasis felt to be less likely. His presentation of left upper quadrant abdominal pain does not seem to be gallbladder in origin however a subacute pancreatitis cannot be entirely excluded. Other differentials to consider for elevated liver enzymes is underlying chronic liver disease autoimmune pathology. Recommendations: 1. Full serologic workup for chronic liver disease has been requested. Considering patient's abdominal pain has abated, transaminases stable, and he is tolerating a full liquid diet would advise following up in the GI office in 7 -10 days for reevaluation. Outpatient MRI/MRCP possible liver biopsy will be discussed. Discharge per medicine. Thank you for this kind referral and the opportunity to participate in the care of your patient. This consultation was discussed with Dr. Khan. The impression and plan of care have been directed as dictated.
[2017-05-31 10:18] LABS: Hepatitis B Surface Ag Index 0.05
[2017-05-31 10:23] LABS: Hepatitis B Core IgM Index 0.01
[2017-05-31 10:24] LABS: Anisocytosis Slight; Basophils % (A) 0 %; CH 29.4; CHCM 32.9; Eosinophils # (A) 0.2 k/uL (0-0.7); Eosinophils % (A) 2 %; HCT 38.9 % (39.0-53.0); HGB 13.4 gm/dL (13.0-17.5); Luc # (Auto) 0.34; Luc % (Auto) 4; Lymphocytes # (A) 1.4 k/uL (1.0-4.8); Lymphocytes % (A) 18 %; MCHC 34.4 g/dL (31.0-37.0); MCV 89.9 fL (80.0-100.0); Mean Platelet Volume 8.3; Monocytes # (A) 0.8 k/uL (0-1.0); Monocytes % (A) 10 %; Neutrophils # (A) 5.2 k/uL (1.3-7.7); Neutrophils % (A) 65 %; RBC 4.32 m/uL (4.30-5.90); RDW 18.1 % (11.5-15.5)
[2017-05-31 10:35] LABS: Hepatitis C Virus IgG Ab Negative (Negative); Hepatitis C Virus IgG Index 0.18
[2017-05-31 11:23] LABS: Prothrombin Time 10.3 sec (9.0-12.0)
[2017-05-31 11:47] LABS: Iron 45 ug/dL (49-181)
[2017-05-31 11:56] LABS: % Iron Saturation 22.1 % (20-50); Total Iron Binding Capacity 204 ug/dL (261-462)
[2017-05-31 12:13] LABS: Glucose,Whole Blood 190 mg/dL (75-99)
[2017-05-31] MEDS: MULTIVITAMINS, THERA 1 EACH TAB PO SCH (12:35)
--- NOTE | 2017-05-31 12:53 | P.PN ---
Subjective Principal diagnosis: Dysphagia Patient was doing well up until this morning. He started to have some retching earlier today. No output of emesis noted. Denies pain. Objective - Vital Signs Vital signs: Vital Signs Temp 97.2 F L 05/31/17 07:00 Pulse 77 05/31/17 08:00 Resp 16 05/31/17 08:00 BP 114/67 05/31/17 07:00 Pulse Ox 92 L 05/31/17 07:00 Intake & Output 05/30/17 05/31/17 05/31/17 18:59 06:59 18:59 Intake Total 200 200 Balance 200 200 Intake: Oral 200 200 Other: Voiding Method Diaper Diaper Diaper Incontinent Incontinent Incontinent # Voids 1 2 # Bowel Movements 1 1 - Exam Abdomen: Soft, nontender, nondistended - Labs CBC & Chem 7: 05/31/17 08:14 05/31/17 08:14 Labs: Abnormal Lab Results - Last 24 Hours (Table) 05/30/17 05/30/17 05/30/17 Range/Units 11:53 16:58 20:20 Hct (39.0-53.0) % RDW (11.5-15.5) % Chloride (98-107) mmol/L Carbon Dioxide (22-30) mmol/L BUN (9-20) mg/dL Creatinine (0.66-1.25) mg/dL Glucose (74-99) mg/dL POC Glucose (mg/dL) 132 H 163 H 192 H (75-99) mg/dL Calcium (8.4-10.2) mg/dL Iron (49-181) ug/dL TIBC (261-462) ug/dL AST (17-59) U/L ALT (21-72) U/L Alkaline Phosphatase (38-126) U/L Albumin (3.5-5.0) g/dL 05/31/17 05/31/17 05/31/17 Range/Units 07:27 08:14 08:14 Hct 38.9 L (39.0-53.0) % RDW 18.1 H (11.5-15.5) % Chloride 111 H (98-107) mmol/L Carbon Dioxide 19 L (22-30) mmol/L BUN 42 H (9-20) mg/dL Creatinine 2.28 H (0.66-1.25) mg/dL Glucose 190 H (74-99) mg/dL POC Glucose (mg/dL) 176 H (75-99) mg/dL Calcium 8.3 L (8.4-10.2) mg/dL Iron (49-181) ug/dL TIBC (261-462) ug/dL AST 107 H (17-59) U/L ALT 143 H (21-72) U/L Alkaline Phosphatase 163 H (38-126) U/L Albumin 3.0 L (3.5-5.0) g/dL 05/31/17 05/31/17 Range/Units 08:14 11:53 Hct (39.0-53.0) % RDW (11.5-15.5) % Chloride (98-107) mmol/L Carbon Dioxide (22-30) mmol/L BUN (9-20) mg/dL Creatinine (0.66-1.25) mg/dL Glucose (74-99) mg/dL POC Glucose (mg/dL) 190 H (75-99) mg/dL Calcium (8.4-10.2) mg/dL Iron 45 L (49-181) ug/dL TIBC 204 L (261-462) ug/dL AST (17-59) U/L ALT (21-72) U/L Alkaline Phosphatase (38-126) U/L Albumin (3.5-5.0) g/dL Assessment and Plan (1) Abdominal pain Narrative/Plan: Continue diet as tolerated. If the patient stays in patient will consider upper endoscopy. Status: Acute
--- NOTE | 2017-05-31 14:24 | FL ---
MODIFIED SWALLOW / DEGLUTITION STUDY DATE OF EXAM: 05/31/2017 CLINICAL HISTORY: 76-year-old male with trouble swallowing. TECHNIQUE: Deglutition study is performed utilizing thin liquid barium, honey and nectar thick liqui d barium, barium thick applesauce, and barium coated cracker. Total fluoroscopy time: 1 minute 25 seconds. Total images: None saved. COMPARISON: None. FINDINGS: The oral and pharyngeal phases show satisfactory initiation and propagation with all modalities teste d. However, there are moderate vallecular residual secondary to reduced posterior tongue base retrac tion. Normal mastication is seen with solid modalities tested. There is no evidence of penetration o r aspiration with any modality tested. IMPRESSION: 1. No evidence for penetration or aspiration. 2. Some generalized weakness with decreased movement of the posterior tongue resulting in moderate va llecular residuals. 3. Please refer to speech therapist notes for further details if necessary.
--- NOTE | 2017-05-31 14:45 | P.DS ---
Providers Date of admission: 05/28/17 19:47 Expected date of discharge: 05/31/17 Attending physician: Jim Gross Consults: 05/28/17 19:47 Consult Physician Routine Consulting Provider: Presley West Consult Reason/Comments: abdominal pain Do you want consulting provider notified?: Yes 05/30/17 12:12 Consult Physician Routine Consulting Provider: Chanel Farmer Consult Reason/Comments: Elevated AST/ALT Do you want consulting provider notified?: Yes Primary care physician: Jim [facility] Course: This 76-year-old male who presented to the emergency room on 2016 with a chief complaint of abdominal pain. The patient's pain is mostly on the left upper and lower quadrant. Patient states he's been experiencing nausea and vomiting for approximately one week but has had persistent diarrhea since 05/06/2017. The patient states during one of his vomiting episodes he swallowed his emesis back down and the patient states that it felt like it got stuck and that is when his abdominal pain began. The patient states prior to him experiencing nausea and vomiting his appetite was good and he was eating and drinking without problems. Patient is a history of COPD, diabetes mellitus, hypertension, hyperlipidemia, and chronic renal disease. He currently resides at [facility]. The patient was admitted for further evaluation and consults were placed to Dr. West. A CT of the abdomen revealed cholelithiasis and wall thickening of the mid to distal sigmoid colon secondary to mild colitis. The patient was placed on clear liquids. Patient underwent a upper GI/barium swallow as ordered by Dr. West, which was negative for obstruction. The patients diet was advanced and he tolerated it well without nausea or vomiting. The patient's LFTs were elevated which appeared to be new this admission. His alkaline phosphatase is chronically elevated. His bilirubin has been normal. GI was consulted to see the patient on 05-30-17. GI service was consulted. From GI standpoint patient is stable for discharge and can follow up in 7-10 days for reevaluation. No interventions completed this admission per GI The patients abdominal pain has resolved, denies nausea or vomiting. He is denying chest pain or shortness of breath. Addendum: The patient was advanced from a full liquid diet to a soft diet. During his lunch he began to cough while eating his mashed potatoes. A modified barium swallow was completed. Dr Jauregui notified of the results and per Dr Jauregui, patient may return to [facility] today Discharge diagnosis: -Abdominal pain, present on admission, CT of the abdomen reveals cholelithiasis and possible mild colitis, resolved at time of discharge -Nausea and vomiting, present on admission, resolved -History of chronic kidney disease, stage 4 -Essential Hypertension -History of COPD, no evidence of acute exacerbation -History of diabetes mellitus, type II -Obesity, BMI 34.5 -Elevated LFTs with chronic elevated alkaline phosphatase, and normal bilirubin : unknown etiology The above impression and plan of care have been discussed and directed by signing physician. Julieta Rojo, nurse practitioner, acting as scribe for signing physician. Patient Condition at Discharge: Stable Plan - Discharge Summary New Discharge Prescriptions: Continue Ferrous Sulfate [Feosol] 325 mg PO BID@0900,1700 Docusate Sodium [Dulcolax Stool Softener] 100 mg PO DAILY Multivitamin [Men's Multi-Vitamin] 1 tab PO DAILY Loratadine [Claritin] 10 mg PO DAILY@0900 Atorvastatin [Lipitor] 80 mg PO HS@2100 Ondansetron [Zofran] 4 mg PO Q6HR PRN PRN Reason: Nausea And Vomiting Melatonin 3 mg PO HS PRN PRN Reason: SLEEP guaiFENesin SYRUP 100MG/5ML [Robitussin] 10 ml PO BID PRN PRN Reason: Cough Albuterol Nebulized [Ventolin Nebulized] 2.5 mg INHALATION RT-Q4H PRN PRN Reason: Shortness Of Breath HYDROcodone/APAP 5-325MG [[place] 5-325] 1 tab PO Q6HR PRN PRN Reason: Pain Inzo Barrier Cream 1 applic TOPICAL BID Ketoconazole 2% Shampoo [Nizoral] 1 applic TOPICAL SUTH Calcium Carbonate [Tums] 500 mg PO Q6H PRN PRN Reason: ACID REFLUX SILVER sulfADIAZINE Cream [Silvadene 1% Cream] 1 applic TOPICAL DAILY PRN PRN Reason: CELLULITIS Bismuth Subsalicylate [Pepto-Bismol] 524 mg PO Q4H PRN PRN Reason: Gi Upset Magnesium Hydroxide [Milk of Magnesia] 2,400 mg PO Q4H PRN PRN Reason: Constipation Loperamide [Imodium] 2 mg PO QID PRN PRN Reason: Loose Stool Ipratropium-Albuterol Nebulize [Duoneb 0.5 mg-3 mg/3 ml Soln] 3 ml INHALATION RT-QID PRN PRN Reason: Shortness Of Breath Insulin Lispro [humaLOG Kwikpen] See Protocol SQ ACHS Budesonide/Formoterol Fumarate [Symbicort 160-4.5 Mcg Inhaler] 2 puff INHALATION RT-BID Metoprolol Tartrate [Lopressor] 12.5 mg PO BID Colchicine 0.6 mg PO BID Dulaglutide [Trulicity] 0.75 mg SQ WE Tiotropium 18 Mcg/Puff [Spiriva] 1 cap INHALATION RT-DAILY Insulin Aspart Protam & Aspart [NovoLOG MIX 70-30 Flexpen] 35 unit SQ DAILY@ 0900 Insulin Aspart Protam & Aspart [NovoLOG MIX 70-30 Flexpen] 10 unit SQ DAILY@ 1700 Famotidine [Pepcid] 20 mg PO DAILY Mirtazapine 7.5 mg PO HS@2100 Furosemide [Lasix] 20 mg PO Q48H Aspirin EC [Ecotrin] 325 mg PO DAILY@1700 Mylanta 30 ml PO Q4H PRN PRN Reason: Gi Upset Antifungal Powder 1 applic TOPICAL BID Discontinued Acetaminophen Tab [Tylenol Tab] 650 mg PO Q6H PRN PRN Reason: Pain Discharge Medication List Albuterol Nebulized [Ventolin Nebulized] 2.5 mg INHALATION RT-Q4H PRN 10/29/14 [ History] Atorvastatin [Lipitor] 80 mg PO HS@2100 10/29/14 [History] Docusate Sodium [Dulcolax Stool Softener] 100 mg PO DAILY 10/29/14 [History] Ferrous Sulfate [Feosol] 325 mg PO BID@0900,1700 10/29/14 [History] Loratadine [Claritin] 10 mg PO DAILY@0900 10/29/14 [History] Melatonin 3 mg PO HS PRN 10/29/14 [History] Multivitamin [Men's Multi-Vitamin] 1 tab PO DAILY 10/29/14 [History] Ondansetron [Zofran] 4 mg PO Q6HR PRN 10/29/14 [History] guaiFENesin SYRUP 100MG/5ML [Robitussin] 10 ml PO BID PRN 10/29/14 [History] HYDROcodone/APAP 5-325MG [[place] 5-325] 1 tab PO Q6HR PRN 01/06/15 [History] Inzo Barrier Cream 1 applic TOPICAL BID 01/06/15 [History] Antifungal Powder 1 applic TOPICAL BID 05/28/17 [History] Aspirin EC [Ecotrin] 325 mg PO DAILY@1700 05/28/17 [History] Bismuth Subsalicylate [Pepto-Bismol] 524 mg PO Q4H PRN 05/28/17 [History] Budesonide/Formoterol Fumarate [Symbicort 160-4.5 Mcg Inhaler] 2 puff INHALATION RT-BID 05/28/17 [History] Calcium Carbonate [Tums] 500 mg PO Q6H PRN 05/28/17 [History] Colchicine 0.6 mg PO BID 05/28/17 [History] Dulaglutide [Trulicity] 0.75 mg SQ WE 05/28/17 [History] Famotidine [Pepcid] 20 mg PO DAILY 05/28/17 [History] Furosemide [Lasix] 20 mg PO Q48H 05/28/17 [History] Insulin Aspart Protam & Aspart [NovoLOG MIX 70-30 Flexpen] 10 unit SQ DAILY@ 1700 05/28/17 [History] Insulin Aspart Protam & Aspart [NovoLOG MIX 70-30 Flexpen] 35 unit SQ DAILY@ 0900 05/28/17 [History] Insulin Lispro [humaLOG Kwikpen] See Protocol SQ ACHS 05/28/17 [History] Ipratropium-Albuterol Nebulize [Duoneb 0.5 mg-3 mg/3 ml Soln] 3 ml INHALATION RT -QID PRN 05/28/17 [History] Ketoconazole 2% Shampoo [Nizoral] 1 applic TOPICAL SUTH 05/28/17 [History] Loperamide [Imodium] 2 mg PO QID PRN 05/28/17 [History] Magnesium Hydroxide [Milk of Magnesia] 2,400 mg PO Q4H PRN 05/28/17 [History] Metoprolol Tartrate [Lopressor] 12.5 mg PO BID 05/28/17 [History] Mirtazapine 7.5 mg PO HS@2100 05/28/17 [History] Mylanta 30 ml PO Q4H PRN 05/28/17 [History] SILVER sulfADIAZINE Cream [Silvadene 1% Cream] 1 applic TOPICAL DAILY PRN [History] Tiotropium 18 Mcg/Puff [Spiriva] 1 cap INHALATION RT-DAILY 05/28/17 [History] Follow up Appointment(s)/Referral(s): Naun Khan MD [STAFF PHYSICIAN] - 10 Days Jim Gross MD [Primary Care Provider] - 1-2 days Ambulatory/Diagnostic Orders: Comprehensive Metabolic Panel [LAB.AMB] Time Frame: 3 Days, Location: Determined By Patient Patient Instructions/Handouts: Gallstones (DC) Activity/Diet/Wound Care/Special Instructions: Activity as tolerated Diet as tolerated. Recommended soft foods that patient can tolerate easier without difficulty Oxygen 2L NC. May increase to keep oxygen saturations greater than 92%. Discharge Disposition: TRANSFER TO SNF/ECF
[2017-05-31 14:50] VITALS: BP 108/57; PULSE 78; RESP 20; TEMP 97.8
[2017-06-01 04:07] LABS: ANA w/Reflex to Titer NEGATIVE (NEGATIVE)
[2017-06-01] MEDS ORDERED: PANTOPRAZOLE 40 MG TABLET PO SCH (07:30)
== END 2017-05-31 16:56 ==
LOC: EC 15:50 → 4MS4W 19:47
PROVIDERS: ADMIT Family Medicine; ATTEND Family Medicine
DX: R10.32 Left lower quadrant pain (principal); R10.12 Left upper quadrant pain; J44.9 Chronic obstructive pulmonary disease, unspecified; E11.22 Type 2 diabetes mellitus with diabetic chronic kidney disease; I12.9 Hypertensive chronic kidney disease with stage 1 through stage 4 chronic kidney disease, or unspecified chronic kidney disease; N18.4 Chronic kidney disease, stage 4 (severe); E78.5 Hyperlipidemia, unspecified; E66.9 Obesity, unspecified; R79.89 Other specified abnormal findings of blood chemistry; R74.8 Abnormal levels of other serum enzymes; M10.9 Gout, unspecified; K76.0 Fatty (change of) liver, not elsewhere classified; R13.10 Dysphagia, unspecified; J61 Pneumoconiosis due to asbestos and other mineral fibers; M19.90 Unspecified osteoarthritis, unspecified site; Z79.899 Other long term (current) drug therapy; Z79.82 Long term (current) use of aspirin; Z79.4 Long term (current) use of insulin; Z68.34 Body mass index [BMI] 34.0-34.9, adult; Z88.1 Allergy status to other antibiotic agents; Z88.5 Allergy status to narcotic agent; Z88.0 Allergy status to penicillin; Z88.8 Allergy status to other drugs, medicaments and biological substances; Z85.828 Personal history of other malignant neoplasm of skin; Z86.14 Personal history of Methicillin resistant Staphylococcus aureus infection; Z82.49 Family history of ischemic heart disease and other diseases of the circulatory system; Z87.891 Personal history of nicotine dependence; Z79.51 Long term (current) use of inhaled steroids; Z87.19 Personal history of other diseases of the digestive system
CPT/HCPCS: 96376 ×2; 96361 ×3; 96372 ×3; 96374; 99285; 36415; 94640 ×7; 94760 ×2; 97110; 97530; 97161; 97165; 92611; 80053 ×3; 80048; 80074; 82728; 82150; 83036; 83540; 83550; 83605; 83690; 84484 ×2; 85025 ×4; 85610; 81001; 83516; 82103; 82105; 84165; 82390; 86038; 74230; 74241; 74176; G0378 ×4; J1644 ×3; C9113 ×3

== ENCOUNTER 2017-06-04 14:08 | Inpatient (IN) | payer MEDICARE, BC, OTHER ==
--- NOTE | 2017-06-04 14:41 | ED ---
General Adult HPI - General Chief complaint: Nausea/Vomiting/Diarrhea Stated complaint: CONFUSION Time Seen by Provider: 06/04/17 14:39 Source: patient, EMS Mode of arrival: EMS Limitations: no limitations - History of Present Illness Initial comments: This is a 76-year-old male with a history of COPD, diabetes, hypertension, hyperlipidemia and recent hospitalization admission for abdominal pain and colitis who presents emergency department for persistent diarrhea and nausea. Per the family it is persistent since he was discharged proximally 4 days ago. He has had multiple episodes of loose stools. She states it is also been nauseated and vomiting. He has not been eating as much because of the nausea. She states that when he was here they did a whole bunch of tests however could not identify the exact cause of his symptoms. It appears on chart review the patient has some colitis and was seen by GI and had a modified swallow study and barium swallow done which were all normal. Patient was suspected to be suffering from mild colitis and sent home. He is currently residing at [facility]. The family states that he also seems to be having worsening confusion since his discharge which is new. The patient does admit to some mild abdominal pain at times however denies any currently. No other complaints currently. - Related Data Home Medications Medication Instructions Recorded Confirmed Albuterol Nebulized [Ventolin 2.5 mg INHALATION RT-Q4H PRN 10/29/14 06/04/17 Nebulized] Atorvastatin [Lipitor] 80 mg PO HS@2100 10/29/14 06/04/17 Docusate Sodium [Dulcolax Stool 100 mg PO DAILY@0900 10/29/14 06/04/17 Softener] Ferrous Sulfate [Feosol] 325 mg PO BID@0900,1700 10/29/14 06/04/17 Loratadine [Claritin] 10 mg PO DAILY@0900 10/29/14 06/04/17 Melatonin 3 mg PO HS 10/29/14 06/04/17 Multivitamin [Men's Multi-Vitamin] 1 tab PO DAILY@1700 10/29/14 06/04/17 Ondansetron [Zofran] 4 mg PO Q6HR PRN 10/29/14 06/04/17 guaiFENesin SYRUP 100MG/5ML 200 mg PO Q12H PRN 10/29/14 06/04/17 [Robitussin] HYDROcodone/APAP 5-325MG [[place] 1 tab PO Q6HR PRN 01/06/15 06/04/17 5-325] Aspirin EC [Ecotrin] 325 mg PO DAILY@1700 05/28/17 06/04/17 Bismuth Subsalicylate 262 mg PO Q4H PRN 05/28/17 06/04/17 [Pepto-Bismol] Budesonide/Formoterol Fumarate 2 puff INHALATION RT-BID 05/28/17 06/04/17 [Symbicort 160-4.5 Mcg Inhaler] Calcium Carbonate [Tums] 500 mg PO Q6H PRN 05/28/17 06/04/17 Colchicine 0.6 mg PO BID 05/28/17 06/04/17 Famotidine [Pepcid] 20 mg PO QAM 05/28/17 06/04/17 Furosemide [Lasix] 20 mg PO Q48H 05/28/17 06/04/17 Insulin Aspart Protam & Aspart 10 unit SQ DAILY@1700 05/28/17 06/04/17 [NovoLOG MIX 70-30 Flexpen] Insulin Aspart Protam & Aspart 35 unit SQ DAILY@0900 05/28/17 06/04/17 [NovoLOG MIX 70-30 Flexpen] Insulin Lispro [humaLOG Kwikpen] See Protocol SQ ACHS 05/28/17 06/04/17 Ipratropium-Albuterol Nebulize 3 ml INHALATION RT-QID PRN 05/28/17 06/04/17 [Duoneb 0.5 mg-3 mg/3 ml Soln] Ketoconazole 2% Shampoo [Nizoral] 1 applic TOPICAL SUTH 05/28/17 06/04/17 Loperamide [Imodium] 2 mg PO Q6H PRN 05/28/17 06/04/17 Magnesium Hydroxide [Milk of 2,400 mg PO Q4H PRN 05/28/17 06/04/17 Magnesia] Metoprolol Tartrate [Lopressor] 12.5 mg PO BID 05/28/17 06/04/17 Mirtazapine 7.5 mg PO HS@2100 05/28/17 06/04/17 Mylanta 30 ml PO Q4H PRN 05/28/17 06/04/17 SILVER sulfADIAZINE Cream 1 applic TOPICAL DAILY PRN 05/28/17 06/04/17 [Silvadene 1% Cream] Tiotropium 18 Mcg/Puff [Spiriva] 1 cap INHALATION RT-DAILY 05/28/17 06/04/17 L.acidoph,Paracasei, B.lactis 1 cap PO BID 06/04/17 06/04/17 [Probiotic] Liraglutide [Victoza 2-Yazan] 1.8 mg SQ DAILY 06/04/17 06/04/17 Tolnaftate [Tinactin Powder] 1 applic TOPICAL BID 06/04/17 06/04/17 Allergies Allergy/AdvReac Type Severity Reaction Status Date / Time meropenem [From Merrem] Allergy Severe Rash/Hives Verified 06/04/17 15:58 Cephalosporins Allergy Unknown Verified 05/28/17 16:17 morphine Allergy Unknown Verified 06/04/17 15:58 Penicillins Allergy Unknown Verified 05/28/17 16:17 vancomycin Allergy Rash/Hives Verified 06/04/17 15:58 Review of Systems ROS Statement: Those systems with pertinent positive or pertinent negative responses have been documented in the HPI. ROS Other: All systems not noted in ROS Statement are negative. Past Medical History Past Medical History: COPD, Diabetes Mellitus, Hyperlipidemia, Hypertension, Renal Disease Additional Past Medical History / Comment(s): Asbestos lung disease with fibrosis, gout, encephalopathy, DJD, obesity with BMI of 33, skin cancer, ongoing difficulties with the left total hip arthroplasty and these complications included joint infection which ultimately required removal of hardware and placement of antibiotic spacer., C. difficile colitis March 2014 History of Any Multi-Drug Resistant Organisms: ESBL, MRSA, VRE Date of last positivie culture/infection: 01/05/15-VRE; 10/21/14 MRSA MDRO Source:: Urine-VRE & ESBL; Left Hip-MRSA Past Surgical History: Appendectomy, Orthopedic Surgery, Tonsillectomy Additional Past Surgical History / Comment(s): [place] Total knee replacements, right total hip replacement, total left hip July 2013 and revision September 2013 due to septic athritis, I&D of seroma of the left total hip 10/09/2013, hemorrhoid ligation which required suturing, EGD with biopsy with mild gastritis and small hiatal hernia, colonoscopy with diverticulosis and internal and external hemorrhoids. Past Anesthesia/Blood Transfusion Reactions: Previous Problems w/ Anesthesia, Postoperative Nausea & Vomiting (PONV) Past Psychological History: No Psychological Hx Reported Smoking Status: Former smoker Past Alcohol Use History: Rare Past Drug Use History: None Reported - Past Family History Mother Family Medical History: Myocardial Infarction ([place]) General Exam - General Exam Comments Initial Comments: Constitutional: Awake alert Appears comfortable Head: Normocephalic atraumatic Eyes: no conjunctival injection No scleral icterus EOMI Neck: No JVD Supple Heart: Regular rate rhythm normal S1-S2 no murmurs Lungs: Clear to auscultation bilaterally No wheezing No rales Abdomen: Soft nondistended there is some mild abdominal tenderness in the left upper quadrant without rebound or guarding Extremities: Non edematous DP pulses intact Radial pulses intact Neuro: The patient is awake and alert however somnolent at times No focal neurologic deficits Psych: Appropriate mood and affect Limitations: no limitations Course Vital Signs 06/04/17 06/04/17 06/04/17 14:22 17:00 18:00 Temperature 97 F L Pulse Rate 87 82 80 Respiratory 17 20 20 Rate Blood Pressure 123/66 131/70 133/66 O2 Sat by Pulse 93 L 95 99 Oximetry 06/04/17 19:00 Temperature Pulse Rate 82 Respiratory 18 Rate Blood Pressure 132/67 O2 Sat by Pulse 95 Oximetry EKG Findings - EKG Comments: EKG Findings:: EKG showing sinus rhythm with a rate of 85. No abnormal ST segment changes. There is T-wave flattening in the lateral leads. QTC is 433. There is a first-degree AV block. No ectopy. Medical Decision Making - Medical Decision Making Is a 76-year-old male who resides at [facility] her came in for mental status changes and per the worsening diarrhea. The patient is found a leukocytosis of 14.6. No urinary tract infection. C. diff toxin was sent for stool. He was started on Flagyl. The rest of his blood work was unchanged from previous. At this time I do not have a good reason for his mental status changes. Going to treat him for C. diff until he can get a result. I spoke with Dr. Latham about the case and he recommends observation admission for Dr. Gross to see the patient tomorrow for evaluation. The patient family was updated and agrees. - Lab Data Result diagrams: 06/04/17 16:00 06/04/17 16:00 Lab Results 06/04/17 06/04/17 06/04/17 Range/Units 16:00 16:00 16:00 WBC 14.6 H (3.8-10.6) k/uL RBC 4.38 (4.30-5.90) m/uL Hgb 13.5 (13.0-17.5) gm/dL Hct 39.1 (39.0-53.0) % MCV 89.3 (80.0-100.0) fL MCH 30.9 (25.0-35.0) pg MCHC 34.6 (31.0-37.0) g/dL RDW 18.6 H (11.5-15.5) % Plt Count 303 (150-450) k/uL Neutrophils % 72 % Lymphocytes % 12 % Monocytes % 10 % Eosinophils % 2 % Basophils % 0 % Neutrophils # 10.6 H (1.3-7.7) k/uL Lymphocytes # 1.8 (1.0-4.8) k/uL Monocytes # 1.5 H (0-1.0) k/uL Eosinophils # 0.2 (0-0.7) k/uL Basophils # 0.1 (0-0.2) k/uL Anisocytosis Slight PT 11.4 (9.0-12.0) sec INR 1.1 (<1.2) Sodium 141 (137-145) mmol/L Potassium 3.8 (3.5-5.1) mmol/L Chloride 110 H (98-107) mmol/L Carbon Dioxide 18 L (22-30) mmol/L Anion Gap 13 mmol/L BUN 50 H (9-20) mg/dL Creatinine 2.70 H (0.66-1.25) mg/dL Est GFR (MDRD) Af Amer 28 (>60 ml/min/1.73 sqM) Est GFR (MDRD) Non-Af 23 (>60 ml/min/1.73 sqM) Glucose 93 (74-99) mg/dL Plasma Lactic Acid Wilber (0.7-2.0) mmol/L Calcium 8.3 L (8.4-10.2) mg/dL Magnesium 2.3 (1.6-2.3) mg/dL Total Bilirubin 0.6 (0.2-1.3) mg/dL AST 104 H (17-59) U/L ALT 158 H (21-72) U/L Alkaline Phosphatase 191 H (38-126) U/L CK-MB (CK-2) (0.0-2.4) ng/mL Troponin I (0.000-0.034) ng/mL Total Protein 6.6 (6.3-8.2) g/dL Albumin 3.0 L (3.5-5.0) g/dL Lipase 602 H (23-300) U/L Urine Color Urine Appearance (Clear) Urine pH (5.0-8.0) Ur Specific [place] (1.001-1.035) Urine Protein (Negative) Urine Glucose (UA) (Negative) Urine Ketones (Negative) Urine Blood (Negative) Urine Nitrite (Negative) Urine Bilirubin (Negative) Urine Urobilinogen (<2.0) mg/dL Ur Leukocyte Esterase (Negative) Urine RBC (0-5) /hpf Urine WBC (0-5) /hpf Ur Squamous Epith Cells (0-4) /hpf Amorphous Sediment (None) /hpf Hyaline Casts (0-2) /lpf Urine Mucus (None) /hpf 06/04/17 06/04/17 06/04/17 Range/Units 16:00 16:00 16:00 WBC (3.8-10.6) k/uL RBC (4.30-5.90) m/uL Hgb (13.0-17.5) gm/dL Hct (39.0-53.0) % MCV (80.0-100.0) fL MCH (25.0-35.0) pg MCHC (31.0-37.0) g/dL RDW (11.5-15.5) % Plt Count (150-450) k/uL Neutrophils % % Lymphocytes % % Monocytes % % Eosinophils % % Basophils % % Neutrophils # (1.3-7.7) k/uL Lymphocytes # (1.0-4.8) k/uL Monocytes # (0-1.0) k/uL Eosinophils # (0-0.7) k/uL Basophils # (0-0.2) k/uL Anisocytosis PT (9.0-12.0) sec INR (<1.2) Sodium (137-145) mmol/L Potassium (3.5-5.1) mmol/L Chloride (98-107) mmol/L Carbon Dioxide (22-30) mmol/L Anion Gap mmol/L BUN (9-20) mg/dL Creatinine (0.66-1.25) mg/dL Est GFR (MDRD) Af Amer (>60 ml/min/1.73 sqM) Est GFR (MDRD) Non-Af (>60 ml/min/1.73 sqM) Glucose (74-99) mg/dL Plasma Lactic Acid Wilber 1.0 (0.7-2.0) mmol/L Calcium (8.4-10.2) mg/dL Magnesium (1.6-2.3) mg/dL Total Bilirubin (0.2-1.3) mg/dL AST (17-59) U/L ALT (21-72) U/L Alkaline Phosphatase (38-126) U/L CK-MB (CK-2) 2.8 H* (0.0-2.4) ng/mL Troponin I 0.019 (0.000-0.034) ng/mL Total Protein (6.3-8.2) g/dL Albumin (3.5-5.0) g/dL Lipase (23-300) U/L Urine Color Urine Appearance (Clear) Urine pH (5.0-8.0) Ur Specific [place] (1.001-1.035) Urine Protein (Negative) Urine Glucose (UA) (Negative) Urine Ketones (Negative) Urine Blood (Negative) Urine Nitrite (Negative) Urine Bilirubin (Negative) Urine Urobilinogen (<2.0) mg/dL Ur Leukocyte Esterase (Negative) Urine RBC (0-5) /hpf Urine WBC (0-5) /hpf Ur Squamous Epith Cells (0-4) /hpf Amorphous Sediment (None) /hpf Hyaline Casts (0-2) /lpf Urine Mucus (None) /hpf 06/04/17 Range/Units 17:30 WBC (3.8-10.6) k/uL RBC (4.30-5.90) m/uL Hgb (13.0-17.5) gm/dL Hct (39.0-53.0) % MCV (80.0-100.0) fL MCH (25.0-35.0) pg MCHC (31.0-37.0) g/dL RDW (11.5-15.5) % Plt Count (150-450) k/uL Neutrophils % % Lymphocytes % % Monocytes % % Eosinophils % % Basophils % % Neutrophils # (1.3-7.7) k/uL Lymphocytes # (1.0-4.8) k/uL Monocytes # (0-1.0) k/uL Eosinophils # (0-0.7) k/uL Basophils # (0-0.2) k/uL Anisocytosis PT (9.0-12.0) sec INR (<1.2) Sodium (137-145) mmol/L Potassium (3.5-5.1) mmol/L Chloride (98-107) mmol/L Carbon Dioxide (22-30) mmol/L Anion Gap mmol/L BUN (9-20) mg/dL Creatinine (0.66-1.25) mg/dL Est GFR (MDRD) Af Amer (>60 ml/min/1.73 sqM) Est GFR (MDRD) Non-Af (>60 ml/min/1.73 sqM) Glucose (74-99) mg/dL Plasma Lactic Acid Wilber (0.7-2.0) mmol/L Calcium (8.4-10.2) mg/dL Magnesium (1.6-2.3) mg/dL Total Bilirubin (0.2-1.3) mg/dL AST (17-59) U/L ALT (21-72) U/L Alkaline Phosphatase (38-126) U/L CK-MB (CK-2) (0.0-2.4) ng/mL Troponin I (0.000-0.034) ng/mL Total Protein (6.3-8.2) g/dL Albumin (3.5-5.0) g/dL Lipase (23-300) U/L Urine Color Yellow Urine Appearance Cloudy (Clear) Urine pH 5.5 (5.0-8.0) Ur Specific [place] 1.012 (1.001-1.035) Urine Protein 2+ H (Negative) Urine Glucose (UA) Negative (Negative) Urine Ketones Negative (Negative) Urine Blood Moderate H (Negative) Urine Nitrite Negative (Negative) Urine Bilirubin Negative (Negative) Urine Urobilinogen <2.0 (<2.0) mg/dL Ur Leukocyte Esterase Negative (Negative) Urine RBC 2 (0-5) /hpf Urine WBC 1 (0-5) /hpf Ur Squamous Epith Cells <1 (0-4) /hpf Amorphous Sediment Rare H (None) /hpf Hyaline Casts 3 H (0-2) /lpf Urine Mucus Rare H (None) /hpf Disposition Clinical Impression: Mental status change, Diarrhea Disposition: ADMITTED IP TO THIS HOSP Condition: Stable Referrals: Jim Gross MD [Primary Care Provider] - 1-2 days
[2017-06-04] MEDS ORDERED: SODIUM CHLORIDE 0.9% 1,000 ML IV ONE (14:49)
[2017-06-04] MEDS ORDERED: SODIUM CHLORIDE 0.9% 1,000 ML IV STA (14:49)
[2017-06-04] MEDS ORDERED: ONDANSETRON 4 MG/2 ML VIAL IVP STA (14:49)
[2017-06-04 16:22] LABS: Anisocytosis Slight; Basophils # (A) 0.1 k/uL (0-0.2); Basophils % (A) 0 %; CH 29.8; CHCM 33.6; Eosinophils # (A) 0.2 k/uL (0-0.7); Eosinophils % (A) 2 %; HCT 39.1 % (39.0-53.0); HDW 3.26; HGB 13.5 gm/dL (13.0-17.5); Luc # (Auto) 0.54; Luc % (Auto) 4; Lymphocytes # (A) 1.8 k/uL (1.0-4.8); Lymphocytes % (A) 12 %; MCH 30.9 pg (25.0-35.0); MCHC 34.6 g/dL (31.0-37.0); MCV 89.3 fL (80.0-100.0); Mean Platelet Volume 7.8; Monocytes # (A) 1.5 k/uL (0-1.0); Monocytes % (A) 10 %; Neutrophils # (A) 10.6 k/uL (1.3-7.7); Neutrophils % (A) 72 %; RBC 4.38 m/uL (4.30-5.90); RDW 18.6 % (11.5-15.5); WBC 14.6 k/uL (3.8-10.6); WBC (Perox) 13.54
[2017-06-04 16:23] LABS: INR 1.1 (<1.2); Prothrombin Time 11.4 sec (9.0-12.0)
[2017-06-04 16:31] LABS: Calcium 8.3 mg/dL (8.4-10.2); Magnesium 2.3 mg/dL (1.6-2.3); Potassium 3.8 mmol/L (3.5-5.1); Total Bilirubin 0.6 mg/dL (0.2-1.3); Total Protein 6.6 g/dL (6.3-8.2)
[2017-06-04] MEDS ORDERED: metroNIDAZOLE-NS PMX 500 MG in SALINE 1 100ML.BAG IVPB STA (17:07)
[2017-06-04 17:50] LABS: Amorphous Sediment,Urine Rare /hpf; Appearance,Urine Cloudy (Clear); Bilirubin,Urine Negative (Negative); Glucose,Urine (UA) Negative (Negative); Ketones,Urine Negative (Negative); Leukocyte Esterase,Urine Negative (Negative); Mucus,Urine Rare /hpf; Nitrite,Urine Negative (Negative); PH, Urine 5.5 (5.0-8.0); Particle Count 6172; Protein,Urine 2+ (Negative); RBC,Urine 2 /hpf (0-5); Specific Gravity,Urine 1.012 (1.001-1.035); Squamous Epithelial Cell,Urine <1 /hpf (0-4); UA Billing (MACRO vs. MICRO) MICRO; Urobilinogen,Urine <2.0 mg/dL (<2.0); WBC,Urine 1 /hpf (0-5)
--- NOTE | 2017-06-04 18:50 | US ---
EXAMINATION TYPE: US abdomen limited DATE OF EXAM: 06/04/2017 COMPARISON: CT ABD CLINICAL HISTORY: Transaminitis/RUQ ultrasound . EC patient with nausea, vomiting, diarrhea; gallston es per CT and renal US EXAM MEASUREMENTS: Exam is technically limited by large body habitus and limited range of motion Liver Length: 13.0 cm Gallbladder Wall: 2.6mm CBD: 0.5 cm Right Kidney: 11.1 x 7.0 x 5.9 cm Pancreas: Obscured by bowel gas Liver: limitedly seen due to large body habitus, overlying bowel gas, and intercostal scanning Gallbladder: multiple stones with shadowing; mobility of stones not determined as patient unable to roll LLD; assessed gallbladder erect and no mobility of stones was demonstrated Evidence for sonographic Goddard's sign: No CBD: wnl Right Kidney: lower pole complex cyst = 2.14 x 2.3 x 2.1cm; smaller mid pole cyst is noted; adjacent to mid pole renal periphery is anechoic fluid area and suggests "sonographic Sweat Sign" or renal fa ilure. IMPRESSION: Cholelithiasis without definitive evidence of acute cholecystitis similar to the previous study. Findings consistent with chronic medical renal disease.
[2017-06-04] MEDS ORDERED: NALOXONE 0.4 MG/ML 1 ML VIAL IV PRN (19:02)
[2017-06-04] MEDS ORDERED: MAG HYDROX/AL HYDROX/SIMETH 30 ML CUP PO PRN (19:04)
[2017-06-04] MEDS ORDERED: MAGNESIUM HYDROXIDE 2,400 MG/10 ML CUP PO PRN (19:04)
[2017-06-04] MEDS ORDERED: CALCIUM CARBONATE 500 MG CHEWABLE PO PRN (19:04)
[2017-06-04] MEDS ORDERED: ALBUTEROL NEBULIZED 2.5 MG/3 ML INHALATION PRN (19:04)
[2017-06-04] MEDS ORDERED: HYDROcodone/APAP 5-325MG 1 EACH TAB PO PRN (19:04)
[2017-06-04] MEDS ORDERED: guaiFENesin SYRUP 100MG/5ML 200 MG/10 ML CUP PO PRN (19:04)
[2017-06-04] MEDS ORDERED: ONDANSETRON 4 MG TAB PO PRN (19:04)
[2017-06-04] MEDS ORDERED: IPRATROPIUM-ALBUTEROL 3 ML NEB INHALATION PRN (19:04)
--- NOTE | 2017-06-04 19:36 | XR ---
EXAMINATION TYPE: XR chest 1V portable DATE OF EXAM: 06/04/2017 COMPARISON: January 10, 2015 HISTORY: Cough TECHNIQUE: Single frontal view of the chest is obtained. FINDINGS: There is bibasilar atelectasis. Is difficult to exclude small bilateral pleural effusions. The cardiac silhouette is unchanged. No pneumothorax is identified. IMPRESSION: Bibasilar atelectasis is noted. Small bilateral pleural effusions are difficult to exclu de.
[2017-06-04] MEDS ORDERED: FUROSEMIDE 20 MG TAB PO SCH (20:00)
[2017-06-04] MEDS: SYMBICORT 160-4.5 MCG INHALER INHALATION SCH (20:44)
[2017-06-04] MEDS: MELATONIN 3 MG TABLET PO SCH (22:18)
[2017-06-04] MEDS: LACTOBACILLUS ACIDOPH & BULGAR 1 EACH PACKET PO SCH (22:18)
[2017-06-04] MEDS: METOPROLOL TARTRATE 12.5 MG TAB PO SCH (22:18)
[2017-06-04] MEDS: COLCHICINE 0.6 MG TAB PO SCH (22:19)
[2017-06-04] MEDS: ATORVASTATIN 80 MG TAB PO SCH (22:19)
[2017-06-04] MEDS: MIRTAZAPINE 15 MG TAB PO SCH (22:19)
[2017-06-04] MEDS: NYSTATIN 100,000 UNIT/GM POWD 15 GM TOPICAL SCH (22:20)
[2017-06-05] MEDS: SYMBICORT 160-4.5 MCG INHALER INHALATION SCH ×2 (07:31→19:22)
[2017-06-05] MEDS: TIOTROPIUM 18 MCG/PUFF INHALER INHALATION SCH (07:31)
[2017-06-05 07:50] LABS: Glucose,Whole Blood 143 mg/dL (75-99)
[2017-06-05] MEDS: FERROUS SULFATE 325 MG TAB PO SCH ×2 (08:03→17:33)
[2017-06-05] MEDS: LORATADINE 10 MG TAB PO SCH (08:03)
[2017-06-05] MEDS: METOPROLOL TARTRATE 12.5 MG TAB PO SCH ×2 (08:03→20:18)
[2017-06-05] MEDS: INSULN ASP PRT/INSULIN ASPART 100 UNIT/ML 10 ML VIAL SQ SCH ×2 (08:03→17:33)
[2017-06-05] MEDS: LACTOBACILLUS ACIDOPH & BULGAR 1 EACH PACKET PO SCH ×2 (08:03→20:15)
[2017-06-05] MEDS: COLCHICINE 0.6 MG TAB PO SCH ×2 (08:03→20:14)
[2017-06-05] MEDS: FAMOTIDINE 20 MG TAB PO SCH (08:03)
[2017-06-05] MEDS: NYSTATIN 100,000 UNIT/GM POWD 15 GM TOPICAL SCH ×2 (08:04→20:14)
[2017-06-05] MEDS ORDERED: NON-FORMULARY DRUG (Liraglutide [Victoza 2-Pak] 1.8 MG) SQ SCH (09:00)
[2017-06-05 12:18] LABS: Glucose,Whole Blood 155 mg/dL (75-99)
--- NOTE | 2017-06-05 13:22 | P.HPIM ---
History of Present Illness H&P Date: 06/05/17 Chief Complaint: Abdominal Pain 76-year-old male who presented to the emergency room on 06/04/2017 with a chief complaint of abdominal pain, nausea, and mental status changes. He was currently residing at [facility]. In the emergency room his white count was found to be 14.6. Urinalysis was completed which was negative for urinary tract infection. A stool sample was sent and was negative for C. diff. The patient had a recent admission to the hospital from 05/28/2017 to 2016. The patient was also admitted for abdominal pain, diarrhea, nausea during this admission. At that time a computed tomography scan of the abdomen revealed cholelithiasis and wall thickening of the mild to distal sigmoid colon secondary to mild colitis. The patient's LFTs were elevated at that time. His alkaline phosphatase is chronically elevated. His bilirubin was normal. GI service was consult and and there was no intervention per their service. Dr. West was consulted during that admission as well. The patient underwent an upper GI which was negative for obstruction. He also underwent a modified barium swallow which did not show any evidence of aspiration. The patient was seen and examined this morning on rounds with Dr. Gross. He denies any abdominal pain or nausea. He is sleepy this morning. He denies chest pain or shortness of breath. Consults will be placed to GI service, Dr. Khan, per Dr. Gross Review of Systems GENERAL: Patient denies fever, chills, weight gain, or weight loss. RESPIRATORY: Denies dyspnea, cough, sputum production, or hemoptysis. CARDIOVASCULAR: Denies chest pain, pressure, palpitations, claudication, or arrhythmias. GI: Denies abdominal pain, diarrhea, incontinence, heartburn, nausea, constipation, or blood in the stool. : Denies urinary frequency, burning, dysuria, or cloudy urine. Denies blood in the urine. MUSCULOSKELETAL: Denies pain or tenderness. Denies cramps, swelling, or decreased range of motion. 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 difficile colitis March 2014 History of Any Multi-Drug Resistant Organisms: ESBL, MRSA, VRE Date of last positivie culture/infection: 01/05/15-VRE; 10/21/14 MRSA MDRO Source:: Urine-VRE & ESBL; Left Hip-MRSA Past Surgical History: Appendectomy, Orthopedic Surgery, Tonsillectomy Additional Past Surgical History / Comment(s): [place] Total knee replacements, right total hip replacement, total left hip July 2013 and revision September 2013 due to septic athritis, I&D of seroma of the left total hip 10/09/2013, hemorrhoid ligation which required suturing, EGD with biopsy with mild gastritis and small hiatal hernia, colonoscopy with diverticulosis and internal and external hemorrhoids. Past Anesthesia/Blood Transfusion Reactions: Previous Problems w/ Anesthesia, Postoperative Nausea & Vomiting (PONV) Past Psychological History: No Psychological Hx Reported Smoking Status: Former smoker Past Alcohol Use History: Rare Additional Past Alcohol Use History / Comment(s): Patient was smoker 2 packs per day for 35 years and quit 40 years ago. He denies any medical marijuana, marijuana or street drug use. He occasionally drinks a beer. He is currently residing at [facility]. Normally he will be living at home with his . 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 Past Drug Use History: None Reported - Past Family History Mother Family Medical History: Myocardial Infarction ([place]) Additional Family Medical History / Comment(s): Father and grandparents had heart attacks Medications and Allergies Home Medications Medication Instructions Recorded Confirmed Type Albuterol Nebulized [Ventolin 2.5 mg INHALATION RT-Q4H PRN 10/29/14 06/04/17 History Nebulized] Atorvastatin [Lipitor] 80 mg PO HS@2100 10/29/14 06/04/17 History Docusate Sodium [Dulcolax Stool 100 mg PO DAILY@0900 10/29/14 06/04/17 History Softener] Ferrous Sulfate [Feosol] 325 mg PO BID@0900,1700 10/29/14 06/04/17 History Loratadine [Claritin] 10 mg PO DAILY@0900 10/29/14 06/04/17 History Melatonin 3 mg PO HS 10/29/14 06/04/17 History Multivitamin [Men's Multi-Vitamin] 1 tab PO DAILY@1700 10/29/14 06/04/17 History Ondansetron [Zofran] 4 mg PO Q6HR PRN 10/29/14 06/04/17 History guaiFENesin SYRUP 100MG/5ML 200 mg PO Q12H PRN 10/29/14 06/04/17 History [Robitussin] HYDROcodone/APAP 5-325MG [[place] 1 tab PO Q6HR PRN 01/06/15 06/04/17 History 5-325] Aspirin EC [Ecotrin] 325 mg PO DAILY@1700 05/28/17 06/04/17 History Bismuth Subsalicylate 262 mg PO Q4H PRN 05/28/17 06/04/17 History [Pepto-Bismol] Budesonide/Formoterol Fumarate 2 puff INHALATION RT-BID 05/28/17 06/04/17 History [Symbicort 160-4.5 Mcg Inhaler] Calcium Carbonate [Tums] 500 mg PO Q6H PRN 05/28/17 06/04/17 History Colchicine 0.6 mg PO BID 05/28/17 06/04/17 History Famotidine [Pepcid] 20 mg PO QAM 05/28/17 06/04/17 History Furosemide [Lasix] 20 mg PO Q48H 05/28/17 06/04/17 History Insulin Aspart Protam & Aspart 10 unit SQ DAILY@1700 05/28/17 06/04/17 History [NovoLOG MIX 70-30 Flexpen] Insulin Aspart Protam & Aspart 35 unit SQ DAILY@0900 05/28/17 06/04/17 History [NovoLOG MIX 70-30 Flexpen] Insulin Lispro [humaLOG Kwikpen] See Protocol SQ ACHS 05/28/17 06/04/17 History Ipratropium-Albuterol Nebulize 3 ml INHALATION RT-QID PRN 05/28/17 06/04/17 History [Duoneb 0.5 mg-3 mg/3 ml Soln] Ketoconazole 2% Shampoo [Nizoral] 1 applic TOPICAL SUTH 05/28/17 06/04/17 History Loperamide [Imodium] 2 mg PO Q6H PRN 05/28/17 06/04/17 History Magnesium Hydroxide [Milk of 2,400 mg PO Q4H PRN 05/28/17 06/04/17 History Magnesia] Metoprolol Tartrate [Lopressor] 12.5 mg PO BID 05/28/17 06/04/17 History Mirtazapine 7.5 mg PO HS@2100 05/28/17 06/04/17 History Mylanta 30 ml PO Q4H PRN 05/28/17 06/04/17 History SILVER sulfADIAZINE Cream 1 applic TOPICAL DAILY PRN 05/28/17 06/04/17 History [Silvadene 1% Cream] Tiotropium 18 Mcg/Puff [Spiriva] 1 cap INHALATION RT-DAILY 05/28/17 06/04/17 History L.acidoph,Paracasei, B.lactis 1 cap PO BID 06/04/17 06/04/17 History [Probiotic] Liraglutide [Victoza 2-Yazan] 1.8 mg SQ DAILY 06/04/17 06/04/17 History Tolnaftate [Tinactin Powder] 1 applic TOPICAL BID 06/04/17 06/04/17 History Allergies Allergy/AdvReac Type Severity Reaction Status Date / Time meropenem [From Merrem] Allergy Severe Rash/Hives Verified 06/04/17 15:58 Cephalosporins Allergy Unknown Verified 05/28/17 16:17 morphine Allergy Unknown Verified 06/04/17 15:58 Penicillins Allergy Unknown Verified 05/28/17 16:17 vancomycin Allergy Rash/Hives Verified 06/04/17 15:58 Physical Exam Vitals: Vital Signs Temp Pulse Pulse Resp BP BP Pulse Ox 06/05/17 07:00 96.2 F L 75 18 124/69 94 L 06/04/17 23:30 96.8 F L 80 20 133/69 97 06/04/17 20:47 99 06/04/17 19:18 82 18 96/53 98 06/04/17 19:00 82 18 132/67 95 06/04/17 18:00 80 20 133/66 99 06/04/17 17:00 82 20 131/70 95 06/04/17 14:22 97 F L 87 17 123/66 93 L Intake and Output 06/04/17 06/05/17 06/05/17 22:59 06:59 14:59 Intake Total 425 Balance 425 Intake: Oral 425 Other: Voiding Method Diaper Diaper # Voids 1 # Bowel Movements 0 Weight 100.5 kg GENERAL: Alert and oriented. Appears sleepy. Appears in no acute distress. Pleasant. RESPIRATORY: Lungs clear bilaterally. No use of accessory muscles. Patient maintaining oxygen saturation greater than 92%. CARDIOVASCULAR: S1 and S2 noted. Murmur noted. No JVD noted. EXTREMITIES: No edema noted. Palpable pedal pulses +2. ABDOMEN: Obese. Abdomen soft and round. Slightly tympanic bowel sounds auscultated 4 quadrants. No pain or tenderness noted upon palpation. Results CBC & Chem 7: 06/04/17 16:00 06/04/17 16:00 Labs: Abnormal Lab Results - Last 24 Hours (Table) 06/04/17 06/04/17 06/04/17 Range/Units 16:00 16:00 16:00 WBC 14.6 H (3.8-10.6) k/uL RDW 18.6 H (11.5-15.5) % Neutrophils # 10.6 H (1.3-7.7) k/uL Monocytes # 1.5 H (0-1.0) k/uL Chloride 110 H (98-107) mmol/L Carbon Dioxide 18 L (22-30) mmol/L BUN 50 H (9-20) mg/dL Creatinine 2.70 H (0.66-1.25) mg/dL POC Glucose (mg/dL) (75-99) mg/dL Calcium 8.3 L (8.4-10.2) mg/dL AST 104 H (17-59) U/L ALT 158 H (21-72) U/L Alkaline Phosphatase 191 H (38-126) U/L CK-MB (CK-2) 2.8 H* (0.0-2.4) ng/mL Albumin 3.0 L (3.5-5.0) g/dL Lipase 602 H (23-300) U/L Urine Protein (Negative) Urine Blood (Negative) Amorphous Sediment (None) /hpf Hyaline Casts (0-2) /lpf Urine Mucus (None) /hpf 06/04/17 06/05/17 Range/Units 17:30 07:47 WBC (3.8-10.6) k/uL RDW (11.5-15.5) % Neutrophils # (1.3-7.7) k/uL Monocytes # (0-1.0) k/uL Chloride (98-107) mmol/L Carbon Dioxide (22-30) mmol/L BUN (9-20) mg/dL Creatinine (0.66-1.25) mg/dL POC Glucose (mg/dL) 143 H (75-99) mg/dL Calcium (8.4-10.2) mg/dL AST (17-59) U/L ALT (21-72) U/L Alkaline Phosphatase (38-126) U/L CK-MB (CK-2) (0.0-2.4) ng/mL Albumin (3.5-5.0) g/dL Lipase (23-300) U/L Urine Protein 2+ H (Negative) Urine Blood Moderate H (Negative) Amorphous Sediment Rare H (None) /hpf Hyaline Casts 3 H (0-2) /lpf Urine Mucus Rare H (None) /hpf Microbiology - Last 24 Hours (Table) 06/04/17 17:30 Urine Culture - Preliminary Urine,Catheterized Thrombosis Risk Factor Assmnt - Choose All That Apply Any of the Below Risk Factors Present?: Yes Each Factor Represents 1 point: Abnormal pulmonary function (COPD), Medical pt on bed rest, Obesity (BMI >25) Other Risk Factors: Yes Each Risk Factor Represents 2 Points: Patient confined to bed Each Risk Factor Represents 3 Points: Age 75 years or older Thrombosis Risk Factor Assessment Total Risk Factor Score: 8 Thrombosis Risk Factor Assessment Level: High Risk Assessment and Plan Plan: ASSESSMENT: -Abdominal pain, present on admission, abdominal ultrasound shows evidence of cholelithiasis. -Diarrhea, present on admission, C. diff negative -Leukocytosis, present on admission, C. diff negative, urine, blood, and stool cultures pending -History of chronic kidney disease, stage IV, GFR 23 on admission -Essential hypertension -History of COPD, no evidence of acute exacerbation -Diabetes mellitus, type II -Obesity: BMI 30.0 -Elevated LFTs with chronic elevated alkaline phosphatase and normal bilirubin: Etiology unknown -Elevated lipase, present on admission: Etiology unknown PLAN: -Consult GI for elevated LFTs per Dr. Gross -Obtain stool culture -Obtain blood culture -Resume home meds as appropriate -Monitor labs -GI prophylaxis: Protonix 40mg PO daily -DVT prophylaxis: Heparin 5000 units subcu q8 hours -Monitor vital signs and address as appropriate -Monitor capillary blood glucose and address as appropriate The above impression and plan of care have been discussed and directed by signing physician. Julieta Rojo, nurse practitioner, acting as scribe for signing physician.
[2017-06-05 17:32] LABS: Glucose,Whole Blood 96 mg/dL (75-99)
[2017-06-05] MEDS: MULTIVITAMINS, THERA 1 EACH TAB PO SCH (17:32)
[2017-06-05] MEDS: HEPARIN SODIUM,PORCINE 5,000 UNIT/ML 1 ML VIAL SQ SCH (17:33)
[2017-06-05] MEDS: ASPIRIN 325 MG TAB PO SCH (17:33)
[2017-06-05] MEDS: MIRTAZAPINE 15 MG TAB PO SCH (20:14)
[2017-06-05] MEDS: MELATONIN 3 MG TABLET PO SCH (20:15)
[2017-06-05] MEDS: ATORVASTATIN 80 MG TAB PO SCH (20:15)
[2017-06-05 21:06] LABS: Glucose,Whole Blood 95 mg/dL (75-99)
[2017-06-06] MEDS ORDERED: LEVOFLOXACIN 500MG-D5W PMX 500 MG in DEXTROSE/WATER 1 100ML.BAG IVPB ONE
[2017-06-06] MEDS: HEPARIN SODIUM,PORCINE 5,000 UNIT/ML 1 ML VIAL SQ SCH ×4 (00:09→23:07)
[2017-06-06] MEDS: FERROUS SULFATE 325 MG TAB PO SCH ×2 (08:01→16:19)
[2017-06-06] MEDS: FUROSEMIDE 20 MG TAB PO SCH (08:01)
[2017-06-06] MEDS: PANTOPRAZOLE 40 MG TABLET PO SCH (08:01)
[2017-06-06] MEDS: COLCHICINE 0.6 MG TAB PO SCH ×2 (08:01→20:20)
[2017-06-06] MEDS: LORATADINE 10 MG TAB PO SCH (08:01)
[2017-06-06] MEDS: LACTOBACILLUS ACIDOPH & BULGAR 1 EACH PACKET PO SCH ×2 (08:01→20:20)
[2017-06-06] MEDS: METOPROLOL TARTRATE 12.5 MG TAB PO SCH ×2 (08:01→20:19)
[2017-06-06] MEDS: FAMOTIDINE 20 MG TAB PO SCH (08:01)
[2017-06-06] MEDS: NYSTATIN 100,000 UNIT/GM POWD 15 GM TOPICAL SCH ×2 (08:02→20:21)
[2017-06-06] MEDS: INSULN ASP PRT/INSULIN ASPART 100 UNIT/ML 10 ML VIAL SQ SCH ×2 (08:08→17:36)
[2017-06-06 08:20] LABS: Glucose,Whole Blood 131 mg/dL (75-99)
[2017-06-06 09:18] LABS: Calcium 8.1 mg/dL (8.4-10.2); Potassium 4.1 mmol/L (3.5-5.1); Total Bilirubin 0.4 mg/dL (0.2-1.3); Total Protein 6.1 g/dL (6.3-8.2)
[2017-06-06 09:20] LABS: Anisocytosis Slight; Basophils % (A) 0 %; CHCM 32.5; Eosinophils # (A) 0.2 k/uL (0-0.7); Eosinophils % (A) 2 %; HCT 38.6 % (39.0-53.0); HDW 3.38; HGB 12.6 gm/dL (13.0-17.5); Hypochromasia Slight; Luc # (Auto) 0.31; Luc % (Auto) 3; Lymphocytes % (A) 9 %; MCH 29.4 pg (25.0-35.0); MCHC 32.8 g/dL (31.0-37.0); MCV 89.9 fL (80.0-100.0); Mean Platelet Volume 7.4; Monocytes # (A) 1.1 k/uL (0-1.0); Monocytes % (A) 10 %; Neutrophils # (A) 8.7 k/uL (1.3-7.7); Neutrophils % (A) 77 %; RDW 18.4 % (11.5-15.5); WBC 11.3 k/uL (3.8-10.6); WBC (Perox) 11.87
--- NOTE | 2017-06-06 09:37 | P.CONS ---
History of Present Illness - Reason for Consult Consult date: 06/06/17 Elevated liver enzymes Requesting physician: Jim Gross - History of Present Illness 76-year-old gentleman with a history of lifelong obesity as heavy as 400 pounds , hypertension, hyperlipidemia, diabetes, renal disease, gout, and Clostridium difficile colitis admitted with diarrhea in mental status changes. Admitted week ago with multiple complaints including left upper quadrant abdominal pain after eating a meal as well as diarrhea. He was seen by the GI service a week ago in regards to elevated transaminases left upper quadrant abdominal discomfort. At that time diarrhea/abdominal pain had subsided. Elevated transaminases secondary to suspected steatohepatitis in the background of nonalcoholic fatty liver disease. Full serologic workup for chronic liver disease with initiated with plans to follow up in the outpatient setting for reevaluation and with discussion of possible MRI versus liver biopsy. He was seen by general surgery a week ago secondary to cholelithiasis. He returns to the emergency room from an F with mental status changes and diarrhea. Denies hematemesis hematochezia melena. Presently denies abdominal pain. Stool culture requested and pending. Clostridium difficile toxin negative. Upon review of liver serology chemistries performed last week AMBER screen negative. Smooth muscle antibody 28. Hepatitis screen negative. AFP less than 1.3. Ferritin 900. Iron 45. TIBC 204. Iron saturation 22.1%. Serum protein electrophoresis albumin PEP 2.7. Total protein 6.1. Alpha 1 anti- trypsin 169. Ceruloplasmin 25. Blood cultures cultures gram-positive cocci in chains. Admission lipase 602. Total bilirubin 0.6. AST 104. ALT 158. Alk phosphatase 191. Ultrasound abdomen showed no changes from previous ultrasound a week ago with continued evidence of cholelithiasis without intrahepatic extrahepatic ductal dilatation. 2 loose bowel movements this morning no diarrhea yesterday. Afebrile. Review of Systems Constitutional: Denies fever, chills, sweats, weight gain, or loss. HEENT: Negative for migraines, blurred vision or loss, earaches, drainage, tinnitus, oral mucosal lesions, dysphagia, or odynophagia. Cardiac: Hypertension. Hyperlipidemia. Negative for chest pain, arrhythmias, or palpitation. Respiratory: COPD. Asbestos lung disease with fibrosis. Negative for shortness of breath, hemoptysis, cough, or sputum production. Gastrointestinal: See HPI for pertinent findings. Genitourinary: Negative for hematuria, urgency, frequency, polyuria, dysuria, or penile discharge. Musculoskeletal: Negative for muscle aches, swelling, arthritis, and arthralgias. Neurologic: Negative for stroke or TIA. Endocrine: Negative for thyroid problems. Diabetes. Skin: Negative for rash or itching. Psychiatric: Negative history for depression and anxiety All systems: negative (See HPI) Past Medical History Past Medical History: COPD, Diabetes Mellitus, Hyperlipidemia, Hypertension, Renal Disease Additional Past Medical History / Comment(s): Asbestos lung disease with fibrosis, gout, encephalopathy, DJD, obesity with BMI of 35, skin cancer, ongoing difficulties with the left total hip arthroplasty and these complications included joint infection which ultimately required removal of hardware and placement of antibiotic spacer., C. difficile colitis March 2014 History of Any Multi-Drug Resistant Organisms: ESBL, MRSA, VRE Year Discovered:: 01/05/15-VRE; 10/21/14 MRSA MDRO Source:: Urine-VRE & ESBL; Left Hip-MRSA Past Surgical History: Appendectomy, Orthopedic Surgery, Tonsillectomy Additional Past Surgical History / Comment(s): [place] Total knee replacements, right total hip replacement, total left hip July 2013 and revision September 2013 due to septic athritis, I&D of seroma of the left total hip 10/09/2013, hemorrhoid ligation which required suturing, EGD with biopsy with mild gastritis and small hiatal hernia, colonoscopy with diverticulosis and internal and external hemorrhoids. Past Anesthesia/Blood Transfusion Reactions: Previous Problems w/ Anesthesia, Postoperative Nausea & Vomiting (PONV) Past Psychological History: No Psychological Hx Reported Smoking Status: Former smoker Past Alcohol Use History: Rare Additional Past Alcohol Use History / Comment(s): Patient was smoker 2 packs per day for 35 years and quit 40 years ago. He denies any medical marijuana, marijuana or street drug use. He occasionally drinks a beer. He is currently residing at [facility]. Normally he will be living at home with his . 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 Past Drug Use History: None Reported - Past Family History Mother Family Medical History: Myocardial Infarction ([place]) Additional Family Medical History / Comment(s): Father and grandparents had heart attacks Medications and Allergies Home Medications Medication Instructions Recorded Confirmed Type Albuterol Nebulized [Ventolin 2.5 mg INHALATION RT-Q4H PRN 10/29/14 06/04/17 History Nebulized] Atorvastatin [Lipitor] 80 mg PO HS@2100 10/29/14 06/04/17 History Docusate Sodium [Dulcolax Stool 100 mg PO DAILY@0900 10/29/14 06/04/17 History Softener] Ferrous Sulfate [Feosol] 325 mg PO BID@0900,1700 10/29/14 06/04/17 History Loratadine [Claritin] 10 mg PO DAILY@0900 10/29/14 06/04/17 History Melatonin 3 mg PO HS 10/29/14 06/04/17 History Multivitamin [Men's Multi-Vitamin] 1 tab PO DAILY@1700 10/29/14 06/04/17 History Ondansetron [Zofran] 4 mg PO Q6HR PRN 10/29/14 06/04/17 History guaiFENesin SYRUP 100MG/5ML 200 mg PO Q12H PRN 10/29/14 06/04/17 History [Robitussin] HYDROcodone/APAP 5-325MG [[place] 1 tab PO Q6HR PRN 01/06/15 06/04/17 History 5-325] Aspirin EC [Ecotrin] 325 mg PO DAILY@1700 05/28/17 06/04/17 History Bismuth Subsalicylate 262 mg PO Q4H PRN 05/28/17 06/04/17 History [Pepto-Bismol] Budesonide/Formoterol Fumarate 2 puff INHALATION RT-BID 05/28/17 06/04/17 History [Symbicort 160-4.5 Mcg Inhaler] Calcium Carbonate [Tums] 500 mg PO Q6H PRN 05/28/17 06/04/17 History Colchicine 0.6 mg PO BID 05/28/17 06/04/17 History Famotidine [Pepcid] 20 mg PO QAM 05/28/17 06/04/17 History Furosemide [Lasix] 20 mg PO Q48H 05/28/17 06/04/17 History Insulin Aspart Protam & Aspart 10 unit SQ DAILY@1700 05/28/17 06/04/17 History [NovoLOG MIX 70-30 Flexpen] Insulin Aspart Protam & Aspart 35 unit SQ DAILY@0900 05/28/17 06/04/17 History [NovoLOG MIX 70-30 Flexpen] Insulin Lispro [humaLOG Kwikpen] See Protocol SQ ACHS 05/28/17 06/04/17 History Ipratropium-Albuterol Nebulize 3 ml INHALATION RT-QID PRN 05/28/17 06/04/17 History [Duoneb 0.5 mg-3 mg/3 ml Soln] Ketoconazole 2% Shampoo [Nizoral] 1 applic TOPICAL SUTH 05/28/17 06/04/17 History Loperamide [Imodium] 2 mg PO Q6H PRN 05/28/17 06/04/17 History Magnesium Hydroxide [Milk of 2,400 mg PO Q4H PRN 05/28/17 06/04/17 History Magnesia] Metoprolol Tartrate [Lopressor] 12.5 mg PO BID 05/28/17 06/04/17 History Mirtazapine 7.5 mg PO HS@2100 05/28/17 06/04/17 History Mylanta 30 ml PO Q4H PRN 05/28/17 06/04/17 History SILVER sulfADIAZINE Cream 1 applic TOPICAL DAILY PRN 05/28/17 06/04/17 History [Silvadene 1% Cream] Tiotropium 18 Mcg/Puff [Spiriva] 1 cap INHALATION RT-DAILY 05/28/17 06/04/17 History L.acidoph,Paracasei, B.lactis 1 cap PO BID 06/04/17 06/04/17 History [Probiotic] Liraglutide [Victoza 2-Yazan] 1.8 mg SQ DAILY 06/04/17 06/04/17 History Tolnaftate [Tinactin Powder] 1 applic TOPICAL BID 06/04/17 06/04/17 History Allergies Allergy/AdvReac Type Severity Reaction Status Date / Time meropenem [From Merrem] Allergy Severe Rash/Hives Verified 06/04/17 15:58 Cephalosporins Allergy Unknown Verified 05/28/17 16:17 morphine Allergy Unknown Verified 06/04/17 15:58 Penicillins Allergy Unknown Verified 05/28/17 16:17 vancomycin Allergy Rash/Hives Verified 06/04/17 15:58 Physical Exam Vitals: Vital Signs Temp Pulse Resp BP Pulse Ox 06/06/17 07:00 97.3 F L 75 14 117/63 97 06/05/17 23:00 97.5 F L 84 18 121/60 96 06/05/17 20:18 83 110/68 06/05/17 14:53 98.2 F 86 12 89/56 90 L Intake and Output 06/05/17 06/06/17 06/06/17 22:59 06:59 14:59 Intake Total 200 200 Output Total 500 Balance 200 -300 Intake: Intake, IV Titration 100 Amount Levofloxacin 500Mg-D5w 100 Pmx 500 mg In Dextrose/ Water 1 100ml.bag @ 100 mls/hr IVPB ONCE ONE Rx#: [id number] Oral 200 100 Output: Urine 500 Other: Voiding Method Diaper Diaper # Voids 1 # Bowel Movements 1 General appearance: The patient is alert, oriented, in no acute distress. HET: Head is normocephalic and atraumatic. Pupils are equal and reactive. Oropharynx is clear without lesions. Neck: Supple without lymphadenopathy. Trachea midline. Heart: S1 S2. Regular rate and rhythm. Lungs: No crackles or wheezes are heard. Abdomen: Soft, nontender, nondistended with bowel sounds. No peritoneal signs. No palpable organomegaly or masses. Extremities: Normal skin color and turgor. No cyanosis, rash, ulceration, clubbing, or edema. Radial and pedal pulses are 2/4 bilaterally. [place] with clear yellow urine. Neurological: No focal deficits. Strength and sensation are grossly intact. Results CBC & Chem 7: 06/07/17 07:34 06/07/17 07:34 Labs: Abnormal Lab Results - Last 24 Hours (Table) 06/05/17 06/05/17 06/06/17 Range/Units 12:13 15:04 08:07 WBC (3.8-10.6) k/uL Hgb (13.0-17.5) gm/dL Hct (39.0-53.0) % RDW (11.5-15.5) % Neutrophils # (1.3-7.7) k/uL Monocytes # (0-1.0) k/uL Chloride (98-107) mmol/L Carbon Dioxide (22-30) mmol/L BUN (9-20) mg/dL Creatinine (0.66-1.25) mg/dL Glucose (74-99) mg/dL POC Glucose (mg/dL) 155 H 131 H (75-99) mg/dL Plasma Lactic Acid Wilber 0.6 L (0.7-2.0) mmol/L Calcium (8.4-10.2) mg/dL AST (17-59) U/L ALT (21-72) U/L Alkaline Phosphatase (38-126) U/L Total Protein (6.3-8.2) g/dL Albumin (3.5-5.0) g/dL 06/06/17 06/06/17 Range/Units 08:41 08:41 WBC 11.3 H (3.8-10.6) k/uL Hgb 12.6 L (13.0-17.5) gm/dL Hct 38.6 L (39.0-53.0) % RDW 18.4 H (11.5-15.5) % Neutrophils # 8.7 H (1.3-7.7) k/uL Monocytes # 1.1 H (0-1.0) k/uL Chloride 114 H (98-107) mmol/L Carbon Dioxide 16 L (22-30) mmol/L BUN 40 H (9-20) mg/dL Creatinine 2.20 H (0.66-1.25) mg/dL Glucose 131 H (74-99) mg/dL POC Glucose (mg/dL) (75-99) mg/dL Plasma Lactic Acid Wilber (0.7-2.0) mmol/L Calcium 8.1 L (8.4-10.2) mg/dL AST 96 H (17-59) U/L ALT 131 H (21-72) U/L Alkaline Phosphatase 166 H (38-126) U/L Total Protein 6.1 L (6.3-8.2) g/dL Albumin 2.6 L (3.5-5.0) g/dL Microbiology - Last 24 Hours (Table) 06/05/17 11:45 Blood Culture - Final Blood 06/04/17 17:30 Urine Culture - Final Urine,Catheterized Assessment and Plan (1) Elevated liver enzymes Narrative/Plan: Suspect nonalcoholic fatty liver disease possible steatohepatitis. Comorbidities including morbid obesity hypertension hyperlipidemia and diabetes mellitus. Retained common bile duct stone or subacute gallstone pancreatitis felt to be less lately however cannot be entirely excluded. Status: Acute (2) Diarrhea Narrative/Plan: Reports of diarrhea from patient however clinically nursing staff reports a few episodes of looser stools nothing excessive Status: Acute (3) Mental status change Narrative/Plan: Possible metabolic possible hepatic encephalopathy. Gram-positive cocci in chains reported in blood cultures. Status: Acute (4) Cholelithiasis Status: Chronic (5) Elevated lipase Narrative/Plan: Nonspecific. Possibility of underlying gallstone pancreatitis cannot be entirely excluded with recent reports of left upper quadrant abdominal pain. Status: Acute (6) Bacteremia Narrative/Plan: Gram-positive cocci in chains infectious disease consulted Status: Acute Plan: 1. Check ammonia level rule out hepatic encephalopathy. Infectious disease consultation. Case discussed with Dr. Gross. 2. MRCP for evaluation of persistent elevation of LFTs. Consideration for liver biopsy however hold off in light of recent positivity of blood cultures. 3. Stool culture/studies pending. Continue with empiric antibiotics. We'll follow with you. Thank you for this kind referral and the opportunity to participate in the care of your patient. This consultation was discussed with Dr. Khan. The impression and plan of care have been directed as dictated.
[2017-06-06] MEDS: SYMBICORT 160-4.5 MCG INHALER INHALATION SCH ×2 (11:15→19:42)
--- NOTE | 2017-06-06 11:30 | CONS ---
CONSULTATION DATE OF SURGERY: 06/06/2017 REASON FOR CONSULTATION: Positive blood culture. HISTORY OF PRESENT ILLNESS: The patient is a 76-year-old, male, who was brought into the ER at [facility] on the with chief complaints of nausea, vomiting and diarrhea. Apparently the patient's symptom has been going on for more than a week. The patient's vomiting apparently got worse over the last 4 days and did have multiple episodes of loose stool. Patient denies any fever or chills. The patient denies having any abdominal pain. The patient denies having any chest pain, shortness of breath or cough. Denies any blood or mucus in the stool. The patient subsequently has been evaluated by the ER physician where the patient did have an ultrasound of the abdomen. There was evidence of cholelithiasis, but no evidence of cholecystitis. The patient on admission with no fever. His white count was elevated at 14.6 down to 11.3. The patient did have a stool for C. difficile which came back negative. Stool cultures ordered which are currently pending. The patient did have blood cultures, which are showing gram-positive cocci in chains. Because of the patient's multiple antibiotic allergy, ID was consulted for further recommendation regarding antibiotic therapy. Apparently the patient was admitted to the same facility from 05/28 to 05/31 with similar symptoms. At that time, the patient did have a CT abdominal pelvis which did show evidence of a cholelithiasis and some sigmoid colitis versus distention of the sigmoid colon. An upper GI and barium swallow was negative. REVIEW OF SYSTEMS: CONSTITUTIONAL: Positive for weakness and no fever recorded. EYES: No complaint. ENT: No complaint. RESPIRATORY: No complaint. CARDIOVASCULAR: No complaint. GENITOURINARY: No complaint. GASTROINTESTINAL: As per HPI. MUSCULOSKELETAL: No complaint. INTEGUMENTARY: No complaint. PSYCHOLOGICAL: No complaint. ENDOCRINE: No complaint. NEUROLOGIC: No complaint. 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 PAST SURGICAL HISTORY: Appendectomy, tonsillectomy, bilateral total knee replacement. SOCIAL HISTORY: The patient about 2 packs per day for 35 years, quit about 40 years ago. No drug use. 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 FAMILY HISTORY: Mother with history of [place]. Father and grandparents also had heart attacks. ALLERGIES: Allergies to MEROPENEM, CEPHALOSPORIN, PENICILLIN, VANCOMYCIN, however, the patient unable to tell me the type of reaction he gets with these antibiotics. MEDICATIONS: Medication currently include the patient is on Weston, Maalox, DuoNeb, aspirin, Lipitor, Tums, colchicine, Pepcid, iron sulfate, Lasix, Robitussin, NovoLog, Lactinex, levofloxacin, melatonin, Lopressor, Remeron, Theragran, Narcan. PHYSICAL EXAMINATION: On examination, blood pressure is 117/63 with a pulse of 75, temperature 97.3. He is 97% 2 L nasal cannula. General description is an elderly male, lying in bed, in no distress. No tachypnea or accessory muscle of respiration use. HEENT examination shows no pallor or scleral icterus. Oral mucosa is dry. NECK: Trachea is central. No thyromegaly. LUNGS: Unlabored breathing. Clear to auscultation anteriorly. No wheeze or crackle. HEART: S1, S2. Regular rate and rhythm. ABDOMEN: Soft, no tenderness. No guarding. No rigidity. EXTREMITIES: No edema of feet. SKIN EXAMINATION: No rash or mass palpable. NEUROLOGICAL: The patient is awake, alert, oriented x3. Mood and affect normal. LABS: Hemoglobin 12.6, white count 11.3, admission white count 14.6 with a BUN of 14, creatinine is 2.20. Liver enzymes are elevated with AST of 96, ALT 131. Lipase 602. Blood cultures with gram-positive cocci in chains. DIAGNOSTIC IMPRESSION AND PLAN: 1. Patient with bacteremia with gram-positive cocci in chains could be more likely Enterococcus and more likely related to his gastrointestinal tract with a question of possible ascending cholangitis or related to pancreatitis related to gallstones. As the patient's predominant symptoms has been nausea, vomiting with evidence of cholelithiasis. 2. Patient did have multiple antibiotic allergies that will limit the number of antibiotics that could be safely used. PLAN: 1. Blood cultures x1 to be repeated to make sure no evidence of any persistent bacteremia and to rule out contamination. 2. Daptomycin will be added at 6 mg/kg q.48 hours in view of his renal insufficiency. 3. We will follow up on his clinical condition and culture to further adjust medication if needed. Thank you for this consultation. Will follow this patient along with you. MMODL / IJN: [id number] / VANESSA
[2017-06-06 12:29] LABS: Glucose,Whole Blood 94 mg/dL (75-99)
[2017-06-06] MEDS: TIOTROPIUM 18 MCG/PUFF INHALER INHALATION SCH (12:45)
--- NOTE | 2017-06-06 13:58 | P.PN ---
Subjective Principal diagnosis: 76-year-old male who presented to the emergency room on 06/04/2017 with a chief complaint of abdominal pain, nausea, and mental status changes. He was currently residing at [facility] on [place]. The patient had a recent admission to the hospital from 05/28/2017 to 2016. The patient was also admitted for abdominal pain, diarrhea, nausea during this admission. At that time a computed tomography scan of the abdomen revealed cholelithiasis and wall thickening of the mild to distal sigmoid colon secondary to mild colitis. The patient's LFTs were elevated at that time. His alkaline phosphatase is chronically elevated. His bilirubin was normal. GI service was consult and and there was no intervention per their service. Dr. West was consulted during that admission as well. The patient underwent an upper GI which was negative for obstruction. He also underwent a modified barium swallow which did not show any evidence of aspiration. GI was consulted again this admission due to elevated ALTs, AST, and lipase. GI recommended obtaining ammonia level to rule out hepatic encephalopathy. Ammonia level is resulted at 13. Additionally an MRCP is to be completed. Infectious disease was consulted due to positive blood culture showing gram positive cocci in chains. The patient is currently receiving levofloxacin. Additionally he was started on daptomycin per Dr. Carbajal. Additionally, repeat blood cultures were ordered today. C. diff was negative. Stool culture has been ordered and is pending collection. The patient was seen and examined on rounds this morning with Dr. Gross. He is awake and alert and answering questions appropriately. However he does seem a little forgetful. He denies any chest pain or shortness of breath. He states he has not been experiencing any abdominal pain, diarrhea, nausea, or vomiting. He states he is voiding per urinal. His vital signs have been stable. He is maintaining an oxygen saturation greater than 92% on 2 L nasal cannula. He is afebrile at this time. Objective - Vital Signs Vital signs: Vital Signs Temp 97.3 F L 06/06/17 07:00 Pulse 75 06/06/17 07:00 Resp 14 06/06/17 07:00 BP 117/63 06/06/17 07:00 Pulse Ox 97 06/06/17 07:00 Intake & Output 06/05/17 06/06/17 06/06/17 18:59 06:59 18:59 Intake Total 400 Output Total 500 Balance -100 Intake: Intake, IV Titration 100 Amount Levofloxacin 500Mg-D5w 100 Pmx 500 mg In Dextrose/ Water 1 100ml.bag @ 100 mls/hr IVPB ONCE ONE Rx#: [id number] Oral 300 Output: Urine 500 Other: Voiding Method Diaper Diaper Diaper # Voids 3 1 1 # Bowel Movements 1 1 - Exam GENERAL: Alert and oriented. Appears in no acute distress. Pleasant. Appears more awake today. RESPIRATORY: Lungs clear bilaterally. No use of accessory muscles. Patient maintaining oxygen saturation greater than 92%. CARDIOVASCULAR: S1 and S2 noted. Murmur noted. No JVD noted. EXTREMITIES: No edema noted. Palpable pedal pulses +2. ABDOMEN: Obese. Abdomen soft and round. bowel sounds auscultated 4 quadrants. No pain or tenderness noted upon palpation. - Labs CBC & Chem 7: 06/06/17 08:41 06/06/17 08:41 Labs: Abnormal Lab Results - Last 24 Hours (Table) 06/05/17 06/06/17 06/06/17 Range/Units 15:04 08:07 08:41 WBC 11.3 H (3.8-10.6) k/uL Hgb 12.6 L (13.0-17.5) gm/dL Hct 38.6 L (39.0-53.0) % RDW 18.4 H (11.5-15.5) % Neutrophils # 8.7 H (1.3-7.7) k/uL Monocytes # 1.1 H (0-1.0) k/uL Chloride (98-107) mmol/L Carbon Dioxide (22-30) mmol/L BUN (9-20) mg/dL Creatinine (0.66-1.25) mg/dL Glucose (74-99) mg/dL POC Glucose (mg/dL) 131 H (75-99) mg/dL Plasma Lactic Acid Wilber 0.6 L (0.7-2.0) mmol/L Calcium (8.4-10.2) mg/dL AST (17-59) U/L ALT (21-72) U/L Alkaline Phosphatase (38-126) U/L Total Protein (6.3-8.2) g/dL Albumin (3.5-5.0) g/dL 06/06/17 Range/Units 08:41 WBC (3.8-10.6) k/uL Hgb (13.0-17.5) gm/dL Hct (39.0-53.0) % RDW (11.5-15.5) % Neutrophils # (1.3-7.7) k/uL Monocytes # (0-1.0) k/uL Chloride 114 H (98-107) mmol/L Carbon Dioxide 16 L (22-30) mmol/L BUN 40 H (9-20) mg/dL Creatinine 2.20 H (0.66-1.25) mg/dL Glucose 131 H (74-99) mg/dL POC Glucose (mg/dL) (75-99) mg/dL Plasma Lactic Acid Wilber (0.7-2.0) mmol/L Calcium 8.1 L (8.4-10.2) mg/dL AST 96 H (17-59) U/L ALT 131 H (21-72) U/L Alkaline Phosphatase 166 H (38-126) U/L Total Protein 6.1 L (6.3-8.2) g/dL Albumin 2.6 L (3.5-5.0) g/dL Microbiology - Last 24 Hours (Table) 06/05/17 11:45 Blood Culture - Final Blood 06/04/17 17:30 Urine Culture - Final Urine,Catheterized Assessment and Plan Plan: ASSESSMENT: -Abdominal pain, present on admission, etiology unclear, abdominal ultrasound shows evidence of cholelithiasis. -Diarrhea, resolving, present on admission, C. diff negative, stool culture pending -Leukocytosis, present on admission, improving, blood cultures show gram- positive cocci in chains -History of chronic kidney disease, stage IV, GFR 23 on admission -Essential hypertension -History of COPD, no evidence of acute exacerbation -Diabetes mellitus, type II -Obesity: BMI 30.0 -Elevated LFTs with chronic elevated alkaline phosphatase and normal bilirubin: Etiology unknown, suspect nonalcoholic fatty liver disease -Elevated lipase, present on admission: Etiology unknown PLAN: -GI on consult. Appreciate recommendations and input -Infectious disease on consult. Appreciate recommendations and input -Continue levofloxacin and daptomycin per infectious disease recommendations -Await final blood culture results -Repeat blood cultures as ordered by infectious disease -MRCP ordered by GI service -Monitor labs -GI prophylaxis: Protonix 40mg PO daily -DVT prophylaxis: Heparin 5000 units subcu q8 hours -Monitor vital signs and address as appropriate -Monitor capillary blood glucose and address as appropriate The above impression and plan of care have been discussed and directed by signing physician. Julieta Rojo, nurse practitioner, acting as scribe for signing physician.
[2017-06-06] MEDS: ASPIRIN 325 MG TAB PO SCH (16:19)
[2017-06-06] MEDS: MULTIVITAMINS, THERA 1 EACH TAB PO SCH (16:19)
[2017-06-06 17:20] LABS: Glucose,Whole Blood 94 mg/dL (75-99)
[2017-06-06] MEDS: MIRTAZAPINE 15 MG TAB PO SCH (20:20)
[2017-06-06] MEDS: MELATONIN 3 MG TABLET PO SCH (20:20)
[2017-06-06 21:36] LABS: Glucose,Whole Blood 122 mg/dL (75-99)
[2017-06-06] MEDS: LEVOFLOXACIN 250MG-D5W PMX 250 MG in DEXTROSE/WATER 1 50ML.BAG IVPB SCH (23:07)
[2017-06-07 07:27] LABS: Glucose,Whole Blood 124 mg/dL (75-99)
[2017-06-07] MEDS: PANTOPRAZOLE 40 MG TABLET PO SCH (07:49)
[2017-06-07] MEDS: FERROUS SULFATE 325 MG TAB PO SCH ×2 (07:49→17:50)
[2017-06-07] MEDS: COLCHICINE 0.6 MG TAB PO SCH ×2 (07:49→21:08)
[2017-06-07] MEDS: FAMOTIDINE 20 MG TAB PO SCH (07:49)
[2017-06-07] MEDS: LACTOBACILLUS ACIDOPH & BULGAR 1 EACH PACKET PO SCH ×2 (07:49→21:09)
[2017-06-07] MEDS: LORATADINE 10 MG TAB PO SCH (07:49)
[2017-06-07] MEDS: METOPROLOL TARTRATE 12.5 MG TAB PO SCH ×2 (07:49→21:08)
[2017-06-07] MEDS: HEPARIN SODIUM,PORCINE 5,000 UNIT/ML 1 ML VIAL SQ SCH ×3 (07:49→23:15)
[2017-06-07] MEDS: INSULN ASP PRT/INSULIN ASPART 100 UNIT/ML 10 ML VIAL SQ SCH ×2 (07:50→17:50)
[2017-06-07] MEDS: NYSTATIN 100,000 UNIT/GM POWD 15 GM TOPICAL SCH ×2 (07:50→21:09)
[2017-06-07 08:01] LABS: Anisocytosis Slight; Basophils # (A) 0.1 k/uL (0-0.2); Basophils % (A) 1 %; CH 29.2; Eosinophils # (A) 0.2 k/uL (0-0.7); Eosinophils % (A) 2 %; HDW 3.43; HGB 12.5 gm/dL (13.0-17.5); Luc # (Auto) 0.42; Luc % (Auto) 4; Lymphocytes # (A) 1.4 k/uL (1.0-4.8); Lymphocytes % (A) 12 %; MCH 29.4 pg (25.0-35.0); MCV 89.1 fL (80.0-100.0); Mean Platelet Volume 7.2; Monocytes # (A) 1.2 k/uL (0-1.0); Monocytes % (A) 11 %; Neutrophils # (A) 8.2 k/uL (1.3-7.7); Neutrophils % (A) 71 %; Poikilocytosis Slight; RBC 4.27 m/uL (4.30-5.90); RDW 18.5 % (11.5-15.5); WBC 11.5 k/uL (3.8-10.6)
[2017-06-07] MEDS: SYMBICORT 160-4.5 MCG INHALER INHALATION SCH ×2 (08:04→20:54)
[2017-06-07] MEDS: TIOTROPIUM 18 MCG/PUFF INHALER INHALATION SCH (08:04)
[2017-06-07 08:11] LABS: Calcium 8.2 mg/dL (8.4-10.2); Potassium 3.7 mmol/L (3.5-5.1); Total Bilirubin 0.5 mg/dL (0.2-1.3); Total Protein 6.2 g/dL (6.3-8.2)
--- NOTE | 2017-06-07 10:23 | P.PN ---
Subjective Principal diagnosis: Mental status changes elevated liver enzymes 76-year-old male reevaluated today in regards to multiple complaints that admission including reported diarrhea mental status changes and persistent elevation of liver enzymes. This morning he is now reporting left upper quadrant pain as he did 1-2 weeks ago. Lipase yesterday 600 H us morning 400 range. LFTs relatively unchanged stable. MRCP was attempted yesterday but canceled secondary to body habitus. Nursing reports 2 large loose nonbloody bowel movements this morning. He was seen by infectious disease and started on daptomycin. Afebrile. Preliminary blood cultures alpha hemolytic Streptococcus. Objective - Vital Signs Vital signs: Vital Signs Temp 98.0 F 06/07/17 07:00 Pulse 80 06/07/17 07:00 Resp 16 06/07/17 07:00 BP 138/81 06/07/17 07:00 Pulse Ox 95 06/07/17 07:00 Intake & Output 06/06/17 06/07/17 06/07/17 18:59 06:59 18:59 Intake Total 300 Balance 300 Intake: Oral 300 Other: Voiding Method Diaper Urinal Urinal Diaper Diaper # Voids 1 2 # Bowel Movements 1 - Exam General appearance: The patient is alert, oriented, in no acute distress. HET: Head is normocephalic and atraumatic. Pupils are equal and reactive. Oropharynx is clear without lesions. Neck: Supple without lymphadenopathy. Trachea midline. Heart: S1 S2. Regular rate and rhythm. Lungs: No crackles or wheezes are heard. Abdomen: Soft, left upper quadrant tenderness, nondistended with bowel sounds. No peritoneal signs. No palpable organomegaly or masses. Extremities: Normal skin color and turgor. No cyanosis, rash, ulceration, clubbing, or edema. Radial and pedal pulses are 2/4 bilaterally. Neurological: No focal deficits. Strength and sensation are grossly intact. - Labs CBC & Chem 7: 06/07/17 07:34 06/07/17 07:34 Labs: Abnormal Lab Results - Last 24 Hours (Table) 06/06/17 06/07/17 06/07/17 Range/Units 21:32 07:24 07:34 WBC 11.5 H (3.8-10.6) k/uL RBC 4.27 L (4.30-5.90) m/uL Hgb 12.5 L (13.0-17.5) gm/dL Hct 38.0 L (39.0-53.0) % RDW 18.5 H (11.5-15.5) % Neutrophils # 8.2 H (1.3-7.7) k/uL Monocytes # 1.2 H (0-1.0) k/uL Chloride (98-107) mmol/L Carbon Dioxide (22-30) mmol/L BUN (9-20) mg/dL Creatinine (0.66-1.25) mg/dL Glucose (74-99) mg/dL POC Glucose (mg/dL) 122 H 124 H (75-99) mg/dL Calcium (8.4-10.2) mg/dL AST (17-59) U/L ALT (21-72) U/L Alkaline Phosphatase (38-126) U/L Total Protein (6.3-8.2) g/dL Albumin (3.5-5.0) g/dL Lipase (23-300) U/L 06/07/17 Range/Units 07:34 WBC (3.8-10.6) k/uL RBC (4.30-5.90) m/uL Hgb (13.0-17.5) gm/dL Hct (39.0-53.0) % RDW (11.5-15.5) % Neutrophils # (1.3-7.7) k/uL Monocytes # (0-1.0) k/uL Chloride 114 H (98-107) mmol/L Carbon Dioxide 16 L (22-30) mmol/L BUN 36 H (9-20) mg/dL Creatinine 2.24 H (0.66-1.25) mg/dL Glucose 120 H (74-99) mg/dL POC Glucose (mg/dL) (75-99) mg/dL Calcium 8.2 L (8.4-10.2) mg/dL AST 137 H (17-59) U/L ALT 160 H (21-72) U/L Alkaline Phosphatase 179 H (38-126) U/L Total Protein 6.2 L (6.3-8.2) g/dL Albumin 2.7 L (3.5-5.0) g/dL Lipase 487 H (23-300) U/L Microbiology - Last 24 Hours (Table) 06/05/17 11:45 Blood Culture Gram Stain - Preliminary Blood Blood Culture - Preliminary Alpha Hemolytic Streptococcus Alpha Hemolytic Streptococcus#2 06/05/17 11:30 Stool Culture - Preliminary Stool Assessment and Plan (1) Elevated liver enzymes Narrative/Plan: Suspect nonalcoholic fatty liver disease possible steatohepatitis. Comorbidities including morbid obesity hypertension hyperlipidemia and diabetes mellitus. Retained common bile duct stone or subacute gallstone pancreatitis felt to be less lately however cannot be entirely excluded. Status: Acute (2) Diarrhea Narrative/Plan: Reports of diarrhea from patient however clinically nursing staff reports a few episodes of looser stools nothing excessive Status: Acute (3) Mental status change Narrative/Plan: Possible metabolic possible hepatic encephalopathy. Gram-positive cocci in chains reported in blood cultures. Status: Acute (4) Cholelithiasis Status: Chronic (5) Elevated lipase Narrative/Plan: Nonspecific. Possibility of underlying gallstone pancreatitis cannot be entirely excluded with recent reports of left upper quadrant abdominal pain. Status: Acute (6) Bacteremia Narrative/Plan: Gram-positive cocci in chains infectious disease consulted Status: Acute (7) Left upper quadrant abdominal pain of unknown etiology Status: Acute Plan: 1. Recommend general surgical evaluation regarding recurrence of abdominal pain. Nonspecific elevation of lipase; cause unclear at this time; doesn't appear biliary in pathology. 2. Consideration for CT imaging without IV contrast secondary to chronic kidney disease for reevaluation of LUQ pain; this was discussed with the medical service [employer] Julieta Rojo; await attending input. 3. Await finality of stool studies. In terms of elevated transaminases at this time no further workup will be initiated. Dr. Farmer has reviewed serologic workup for chronic liver disease from last week no further recommendations at this time; nonalcoholic fatty liver disease with possible superimposed steatohepatitis within the differential. Consideration for outpatient open MRI possible liver biopsy once bacteremia has been treated. 4. Antibiotics per infectious disease. 5. Light diet as tolerated. 6. We'll continue to follow with you. Assessment and plan of care discussed with Dr. Farmer
[2017-06-07 11:36] LABS: Glucose,Whole Blood 129 mg/dL (75-99)
--- NOTE | 2017-06-07 12:14 | P.GSCN ---
History of Present Illness Consult date: 06/07/17 Reason for Consult: Abdominal pain History of present illness: Patient came back to the hospital with diarrhea mental status changes and abdominal pain. He was in the [facility]. He was seen only a week or 2 ago while hospitalized at that time. He was having left mid abdominal discomforts. He has a history of known gallstones. This admission he was found have an elevated lipase. He has persistently elevated liver enzymes. An MRCP was ordered but apparently that is been placed on hold. No ERCP plan at this time. Repeat ultrasound shows a normal size common bile duct. No gallbladder wall inflammatory changes are present. The patient previously was having episodes of frequent vomiting which seems to be better at this time. Ammonia level was normal. Review of Systems The patient denies any acute changes in vision or hearing, no dysphagia or odynophagia, no chest pain, no dysuria or hematuria, no headache, no runny nose , no rectal bleeding or melena, no unexplained weight loss Past Medical History Past Medical History: COPD, Diabetes Mellitus, Hyperlipidemia, Hypertension, Renal Disease Additional Past Medical History / Comment(s): Asbestos lung disease with fibrosis, gout, encephalopathy, DJD, obesity with BMI of 35, skin cancer, ongoing difficulties with the left total hip arthroplasty and these complications included joint infection which ultimately required removal of hardware and placement of antibiotic spacer., C. difficile colitis March 2014 History of Any Multi-Drug Resistant Organisms: ESBL, MRSA, VRE Year Discovered:: 01/05/15-VRE; 10/21/14 MRSA MDRO Source:: Urine-VRE & ESBL; Left Hip-MRSA Past Surgical History: Appendectomy, Orthopedic Surgery, Tonsillectomy Additional Past Surgical History / Comment(s): [place] Total knee replacements, right total hip replacement, total left hip July 2013 and revision September 2013 due to septic athritis, I&D of seroma of the left total hip 10/09/2013, hemorrhoid ligation which required suturing, EGD with biopsy with mild gastritis and small hiatal hernia, colonoscopy with diverticulosis and internal and external hemorrhoids. Past Anesthesia/Blood Transfusion Reactions: Previous Problems w/ Anesthesia, Postoperative Nausea & Vomiting (PONV) Past Psychological History: No Psychological Hx Reported Smoking Status: Former smoker Past Alcohol Use History: Rare Additional Past Alcohol Use History / Comment(s): Patient was smoker 2 packs per day for 35 years and quit 40 years ago. He denies any medical marijuana, marijuana or street drug use. He occasionally drinks a beer. He is currently residing at [facility]. Normally he will be living at home with his . 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 Past Drug Use History: None Reported - Past Family History Mother Family Medical History: Myocardial Infarction ([place]) Additional Family Medical History / Comment(s): Father and grandparents had heart attacks Medications and Allergies Home Medications Medication Instructions Recorded Confirmed Type Albuterol Nebulized [Ventolin 2.5 mg INHALATION RT-Q4H PRN 10/29/14 06/04/17 History Nebulized] Atorvastatin [Lipitor] 80 mg PO HS@2100 10/29/14 06/04/17 History Docusate Sodium [Dulcolax Stool 100 mg PO DAILY@0900 10/29/14 06/04/17 History Softener] Ferrous Sulfate [Feosol] 325 mg PO BID@0900,1700 10/29/14 06/04/17 History Loratadine [Claritin] 10 mg PO DAILY@0900 10/29/14 06/04/17 History Melatonin 3 mg PO HS 10/29/14 06/04/17 History Multivitamin [Men's Multi-Vitamin] 1 tab PO DAILY@1700 10/29/14 06/04/17 History Ondansetron [Zofran] 4 mg PO Q6HR PRN 10/29/14 06/04/17 History guaiFENesin SYRUP 100MG/5ML 200 mg PO Q12H PRN 10/29/14 06/04/17 History [Robitussin] HYDROcodone/APAP 5-325MG [[place] 1 tab PO Q6HR PRN 01/06/15 06/04/17 History 5-325] Aspirin EC [Ecotrin] 325 mg PO DAILY@1700 05/28/17 06/04/17 History Bismuth Subsalicylate 262 mg PO Q4H PRN 05/28/17 06/04/17 History [Pepto-Bismol] Budesonide/Formoterol Fumarate 2 puff INHALATION RT-BID 05/28/17 06/04/17 History [Symbicort 160-4.5 Mcg Inhaler] Calcium Carbonate [Tums] 500 mg PO Q6H PRN 05/28/17 06/04/17 History Colchicine 0.6 mg PO BID 05/28/17 06/04/17 History Famotidine [Pepcid] 20 mg PO QAM 05/28/17 06/04/17 History Furosemide [Lasix] 20 mg PO Q48H 05/28/17 06/04/17 History Insulin Aspart Protam & Aspart 10 unit SQ DAILY@1700 05/28/17 06/04/17 History [NovoLOG MIX 70-30 Flexpen] Insulin Aspart Protam & Aspart 35 unit SQ DAILY@0900 05/28/17 06/04/17 History [NovoLOG MIX 70-30 Flexpen] Insulin Lispro [humaLOG Kwikpen] See Protocol SQ ACHS 05/28/17 06/04/17 History Ipratropium-Albuterol Nebulize 3 ml INHALATION RT-QID PRN 05/28/17 06/04/17 History [Duoneb 0.5 mg-3 mg/3 ml Soln] Ketoconazole 2% Shampoo [Nizoral] 1 applic TOPICAL SUTH 05/28/17 06/04/17 History Loperamide [Imodium] 2 mg PO Q6H PRN 05/28/17 06/04/17 History Magnesium Hydroxide [Milk of 2,400 mg PO Q4H PRN 05/28/17 06/04/17 History Magnesia] Metoprolol Tartrate [Lopressor] 12.5 mg PO BID 05/28/17 06/04/17 History Mirtazapine 7.5 mg PO HS@2100 05/28/17 06/04/17 History Mylanta 30 ml PO Q4H PRN 05/28/17 06/04/17 History SILVER sulfADIAZINE Cream 1 applic TOPICAL DAILY PRN 05/28/17 06/04/17 History [Silvadene 1% Cream] Tiotropium 18 Mcg/Puff [Spiriva] 1 cap INHALATION RT-DAILY 05/28/17 06/04/17 History L.acidoph,Paracasei, B.lactis 1 cap PO BID 06/04/17 06/04/17 History [Probiotic] Liraglutide [Victoza 2-Yazan] 1.8 mg SQ DAILY 06/04/17 06/04/17 History Tolnaftate [Tinactin Powder] 1 applic TOPICAL BID 06/04/17 06/04/17 History Allergies Allergy/AdvReac Type Severity Reaction Status Date / Time meropenem [From Merrem] Allergy Severe Rash/Hives Verified 06/04/17 15:58 Cephalosporins Allergy Unknown Verified 05/28/17 16:17 morphine Allergy Unknown Verified 06/04/17 15:58 Penicillins Allergy Unknown Verified 05/28/17 16:17 vancomycin Allergy Rash/Hives Verified 06/04/17 15:58 Surgical - Exam Vital Signs Temp Pulse Resp BP Pulse Ox 97 F L 87 17 123/66 93 L 06/04/17 14:22 06/04/17 14:22 06/04/17 14:22 06/04/17 14:22 06/04/17 14:22 Physical exam: General: Well-developed, well-nourished HEENT: Normocephalic, sclerae nonicteric Abdomen: Mild left upper quadrant and epigastric tenderness, nondistended Extremities: Lower extremity edema present Neuro: Alert somewhat confused Results - Labs 06/07/17 07:34 06/07/17 07:34 Abnormal Lab Results - Last 24 Hours (Table) 06/06/17 06/07/17 06/07/17 Range/Units 21:32 07:24 07:34 WBC 11.5 H (3.8-10.6) k/uL RBC 4.27 L (4.30-5.90) m/uL Hgb 12.5 L (13.0-17.5) gm/dL Hct 38.0 L (39.0-53.0) % RDW 18.5 H (11.5-15.5) % Neutrophils # 8.2 H (1.3-7.7) k/uL Monocytes # 1.2 H (0-1.0) k/uL Chloride (98-107) mmol/L Carbon Dioxide (22-30) mmol/L BUN (9-20) mg/dL Creatinine (0.66-1.25) mg/dL Glucose (74-99) mg/dL POC Glucose (mg/dL) 122 H 124 H (75-99) mg/dL Calcium (8.4-10.2) mg/dL AST (17-59) U/L ALT (21-72) U/L Alkaline Phosphatase (38-126) U/L Total Protein (6.3-8.2) g/dL Albumin (3.5-5.0) g/dL Lipase (23-300) U/L 06/07/17 06/07/17 Range/Units 07:34 11:34 WBC (3.8-10.6) k/uL RBC (4.30-5.90) m/uL Hgb (13.0-17.5) gm/dL Hct (39.0-53.0) % RDW (11.5-15.5) % Neutrophils # (1.3-7.7) k/uL Monocytes # (0-1.0) k/uL Chloride 114 H (98-107) mmol/L Carbon Dioxide 16 L (22-30) mmol/L BUN 36 H (9-20) mg/dL Creatinine 2.24 H (0.66-1.25) mg/dL Glucose 120 H (74-99) mg/dL POC Glucose (mg/dL) 129 H (75-99) mg/dL Calcium 8.2 L (8.4-10.2) mg/dL AST 137 H (17-59) U/L ALT 160 H (21-72) U/L Alkaline Phosphatase 179 H (38-126) U/L Total Protein 6.2 L (6.3-8.2) g/dL Albumin 2.7 L (3.5-5.0) g/dL Lipase 487 H (23-300) U/L Microbiology - Last 24 Hours (Table) 06/05/17 11:45 Blood Culture Gram Stain - Preliminary Blood Blood Culture - Preliminary Alpha Hemolytic Streptococcus Alpha Hemolytic Streptococcus#2 06/05/17 11:30 Stool Culture - Preliminary Stool Diabetes panel 06/07/17 Range/Units 07:34 Sodium 141 (137-145) mmol/L Potassium 3.7 (3.5-5.1) mmol/L Chloride 114 H (98-107) mmol/L Carbon Dioxide 16 L (22-30) mmol/L BUN 36 H (9-20) mg/dL Creatinine 2.24 H (0.66-1.25) mg/dL Glucose 120 H (74-99) mg/dL Calcium 8.2 L (8.4-10.2) mg/dL AST 137 H (17-59) U/L ALT 160 H (21-72) U/L Alkaline Phosphatase 179 H (38-126) U/L Total Protein 6.2 L (6.3-8.2) g/dL Albumin 2.7 L (3.5-5.0) g/dL Calcium panel 06/07/17 Range/Units 07:34 Calcium 8.2 L (8.4-10.2) mg/dL Albumin 2.7 L (3.5-5.0) g/dL Pituitary panel 06/07/17 Range/Units 07:34 Sodium 141 (137-145) mmol/L Potassium 3.7 (3.5-5.1) mmol/L Chloride 114 H (98-107) mmol/L Carbon Dioxide 16 L (22-30) mmol/L BUN 36 H (9-20) mg/dL Creatinine 2.24 H (0.66-1.25) mg/dL Glucose 120 H (74-99) mg/dL Calcium 8.2 L (8.4-10.2) mg/dL Adrenal panel 06/07/17 Range/Units 07:34 Sodium 141 (137-145) mmol/L Potassium 3.7 (3.5-5.1) mmol/L Chloride 114 H (98-107) mmol/L Carbon Dioxide 16 L (22-30) mmol/L BUN 36 H (9-20) mg/dL Creatinine 2.24 H (0.66-1.25) mg/dL Glucose 120 H (74-99) mg/dL Calcium 8.2 L (8.4-10.2) mg/dL Total Bilirubin 0.5 (0.2-1.3) mg/dL AST 137 H (17-59) U/L ALT 160 H (21-72) U/L Alkaline Phosphatase 179 H (38-126) U/L Total Protein 6.2 L (6.3-8.2) g/dL Albumin 2.7 L (3.5-5.0) g/dL Assessment and Plan (1) Abdominal pain Narrative/Plan: Agree with GIs plans at this time. We'll check amylase and lipase tomorrow morning. If symptoms persist however inpatient MRCP versus ERCP may be warranted. Status: Acute
--- NOTE | 2017-06-07 12:28 | P.PN ---
Subjective Principal diagnosis: 76-year-old male who presented to the emergency room on 06/04/2017 with a chief complaint of abdominal pain, nausea, and mental status changes. He was currently residing at [facility]. The patient had a recent admission to the hospital from 05/28/2017 to 2016. The patient was also admitted for abdominal pain, diarrhea, nausea during this admission. At that time a computed tomography scan of the abdomen revealed cholelithiasis and wall thickening of the mild to distal sigmoid colon secondary to mild colitis. The patient's LFTs were elevated at that time. His alkaline phosphatase is chronically elevated. His bilirubin was normal. GI service was consult and and there was no intervention per their service. Dr. West was consulted during that admission as well. The patient underwent an upper GI which was negative for obstruction. He also underwent a modified barium swallow which did not show any evidence of aspiration. GI was consulted again this admission due to elevated ALTs, AST, and lipase. Ammonia level was ordered and was in normal range. MRCP was ordered was unable to be completed due to patient size. Case discussed with Jennifer Chung NP. Patient will likely need liver biopsy outpatient and/or open MRI. Infectious disease was consulted due to positive blood culture. Preliminary report showing alpha hemolytic streptococcus. The patient is currently receiving levofloxacin. Additionally he was started on daptomycin per Dr. Carbajal. C. diff was negative. Stool culture is pending. The patient was seen and examined on rounds with Dr. Gross. Initially, he was very sleepy but easily awoke to verbal stimuli. He is awake and alert and answering questions appropriately. He denies any chest pain or shortness of breath. He is complaining of left side abdominal pain, which is new from yesterday. He had two episodes of diarrhea. He states he ate breakfast this morning and is not experiencing nausea or vomiting. He states he is voiding per urinal. His vital signs have been stable. He is maintaining an oxygen saturation greater than 92% on 2 L nasal cannula. He is afebrile at this time. Objective - Vital Signs Vital signs: Vital Signs Temp 98.0 F 06/07/17 07:00 Pulse 80 06/07/17 07:00 Resp 16 06/07/17 07:00 BP 138/81 06/07/17 07:00 Pulse Ox 95 06/07/17 07:00 Intake & Output 06/06/17 06/07/17 06/07/17 18:59 06:59 18:59 Intake Total 300 Balance 300 Intake: Oral 300 Other: Voiding Method Diaper Urinal Urinal Diaper Diaper # Voids 1 2 # Bowel Movements 1 - Exam GENERAL: Awake and alert. Appears in no acute distress. Pleasant. RESPIRATORY: Lungs clear bilaterally. No use of accessory muscles. Patient maintaining oxygen saturation greater than 92% on 2 L nasal cannula. CARDIOVASCULAR: S1 and S2 noted. Murmur noted. No JVD noted. EXTREMITIES: No edema noted. Palpable pedal pulses +2. ABDOMEN: Obese. Abdomen soft and round. bowel sounds auscultated 4 quadrants. Pain and tenderness noted upon palpation to left upper and lower quadrant - Labs CBC & Chem 7: 06/07/17 07:34 06/07/17 07:34 Labs: Abnormal Lab Results - Last 24 Hours (Table) 06/06/17 06/07/17 06/07/17 Range/Units 21:32 07:24 07:34 WBC 11.5 H (3.8-10.6) k/uL RBC 4.27 L (4.30-5.90) m/uL Hgb 12.5 L (13.0-17.5) gm/dL Hct 38.0 L (39.0-53.0) % RDW 18.5 H (11.5-15.5) % Neutrophils # 8.2 H (1.3-7.7) k/uL Monocytes # 1.2 H (0-1.0) k/uL Chloride (98-107) mmol/L Carbon Dioxide (22-30) mmol/L BUN (9-20) mg/dL Creatinine (0.66-1.25) mg/dL Glucose (74-99) mg/dL POC Glucose (mg/dL) 122 H 124 H (75-99) mg/dL Calcium (8.4-10.2) mg/dL AST (17-59) U/L ALT (21-72) U/L Alkaline Phosphatase (38-126) U/L Total Protein (6.3-8.2) g/dL Albumin (3.5-5.0) g/dL Lipase (23-300) U/L 06/07/17 Range/Units 07:34 WBC (3.8-10.6) k/uL RBC (4.30-5.90) m/uL Hgb (13.0-17.5) gm/dL Hct (39.0-53.0) % RDW (11.5-15.5) % Neutrophils # (1.3-7.7) k/uL Monocytes # (0-1.0) k/uL Chloride 114 H (98-107) mmol/L Carbon Dioxide 16 L (22-30) mmol/L BUN 36 H (9-20) mg/dL Creatinine 2.24 H (0.66-1.25) mg/dL Glucose 120 H (74-99) mg/dL POC Glucose (mg/dL) (75-99) mg/dL Calcium 8.2 L (8.4-10.2) mg/dL AST 137 H (17-59) U/L ALT 160 H (21-72) U/L Alkaline Phosphatase 179 H (38-126) U/L Total Protein 6.2 L (6.3-8.2) g/dL Albumin 2.7 L (3.5-5.0) g/dL Lipase 487 H (23-300) U/L Microbiology - Last 24 Hours (Table) 06/05/17 11:45 Blood Culture Gram Stain - Preliminary Blood Blood Culture - Preliminary Alpha Hemolytic Streptococcus Alpha Hemolytic Streptococcus#2 06/05/17 11:30 Stool Culture - Preliminary Stool Assessment and Plan Plan: ASSESSMENT: -Abdominal pain, present on admission, etiology unclear, abdominal ultrasound shows evidence of cholelithiasis. -Diarrhea, present on admission, C. diff negative, stool culture pending -Leukocytosis, present on admission, trending down, blood cultures show alpha hemolytic streptococcus -History of chronic kidney disease, stage IV, GFR 23 on admission -Essential hypertension -History of COPD, no evidence of acute exacerbation -Diabetes mellitus, type II -Obesity: BMI 30.0 -Elevated LFTs with chronic elevated alkaline phosphatase and normal bilirubin: Etiology unclear, suspect nonalcoholic fatty liver disease -Elevated lipase, present on admission, trending down: Etiology unknown PLAN: -GI on consult. Appreciate recommendations and input -Infectious disease on consult. Appreciate recommendations and input -Continue levofloxacin and daptomycin per infectious disease recommendations -Patient unable to complete MRCP due to size-will likely require outpatient open MRI and/or liver biopsy per GI. -Consult Dr. West who saw patient last admission for abdominal pain -Repeat CT of abdomen and pelvis. Unable to have contrast due to CKD -Monitor labs -GI prophylaxis: Protonix 40mg PO daily -DVT prophylaxis: Heparin 5000 units subcu q8 hours -Monitor vital signs and address as appropriate -Monitor capillary blood glucose and address as appropriate The above impression and plan of care have been discussed and directed by signing physician. Julieta Rojo, nurse practitioner, acting as scribe for signing physician.
--- NOTE | 2017-06-07 12:46 | PN ---
PROGRESS NOTE DATE OF SERVICE: 06/07/2017 REASON FOR FOLLOWUP: Bacteremia. INTERVAL HISTORY: The patient is afebrile. Has been breathing comfortably. Apparently some nausea but no vomiting and did have one episode of BM this morning, but no blood or mucus per the RN. Patient is slightly feeling weak and lethargic. PHYSICAL EXAMINATION: Blood pressure is 138/81 with a pulse of 80, temperature 98. He is 95% weight description is a elderly male, lying in bed, in no distress. RESPIRATORY SYSTEM: Unlabored breathing. Clear to auscultation anteriorly. HEART: S1, S2. Regular rate and rhythm. ABDOMEN: Soft. No tenderness. LABS: Hemoglobin is 12.5, white count is 11.5 with a BUN of 36, creatinine is 2.24. Liver enzymes remained to be elevated, blood pressure with also hemolytic Streptococcus, two of them. DIAGNOSTIC IMPRESSION AND PLAN: Patient with positive blood culture with abdominal symptom and evidence of cholelithiasis and question of possible . The patient though did have elevated white count but no fever. He is currently covered with daptomycin because of multiple antibiotic allergies. Will wait for the final ID of this pathogen and the followup blood cultures to determine his discharge antibiotic. Continue supportive care. . MMODL / IJN: [id number] /
[2017-06-07] MEDS: IOHEXOL 350 MG/ML 25 ML BOTTLE (ORAL USE) PO PRN ×2 (14:05→14:56)
--- NOTE | 2017-06-07 17:05 | CT ---
EXAMINATION TYPE: CT abdomen pelvis wo con DATE OF EXAM: 06/07/2017 COMPARISON: 05/28/2017 HISTORY: Patient poor historian. Patient has MRSA, VRE, and ESBL. Patient has abdominal pain and di arrhea. CT DLP: 1365.8 mGycm Examination of the solid and hollow viscera is limited given the lack of contrast. FINDINGS: LUNG BASES: Asbestos-related pleural disease. Small left pleural effusion with compressive atelectasi s. No evidence for nodule. No evidence for infiltrate. LIVER/GB: Cholelithiasis without evidence for gallbladder wall thickening or pericholecystic fluid. N o space-occupying hepatic lesion. PANCREAS: No pancreatic mass identified. No inflammatory process seen. SPLEEN: No evidence for splenomegaly. No intrasplenic lesions seen. ADRENALS: No adrenal nodules identified. No evidence for thickening. KIDNEYS: Atrophic changes of the kidneys. No evidence for renal mass. No nephrolithiasis. No hydronep hrosis. BOWEL: There is colonic distention with caliber change noted within the mid sigmoid colon. Underlying mass is not excluded. Nonspecific Colitis is an additional consideration. Appendectomy clips noted. Small bowel is of normal caliber. Lymph nodes: No evidence for adenopathy greater than 1 cm. Abdominal aorta: Atheromatous changes seen. No evidence for aneurysm. Genital organs: No significant abnormality. Other: There are degenerative changes of the lumbar spine. Bilateral hip prostheses resulting in stre ak artifact within the pelvis limiting portions of the study. IMPRESSION: 1.There is colonic distention with caliber change noted within the mid sigmoid colon. Underlying mass is not excluded. Nonspecific Colitis is an additional consideration. 2. UNCOMPLICATED CHOLELITHIASIS. 3. ASBESTOS-RELATED PLEURAL DISEASE. SMALL LEFT PLEURAL EFFUSION AND COMPRESSIVE ATELECTASIS IS NOTED .
[2017-06-07 17:31] LABS: Glucose,Whole Blood 145 mg/dL (75-99)
[2017-06-07] MEDS: ASPIRIN 325 MG TAB PO SCH (17:50)
[2017-06-07] MEDS: MULTIVITAMINS, THERA 1 EACH TAB PO SCH (17:50)
[2017-06-07 21:05] LABS: Glucose,Whole Blood 101 mg/dL (75-99)
[2017-06-07] MEDS: MELATONIN 3 MG TABLET PO SCH (21:08)
[2017-06-07] MEDS: MIRTAZAPINE 15 MG TAB PO SCH (21:08)
[2017-06-07] MEDS: LEVOFLOXACIN 250MG-D5W PMX 250 MG in DEXTROSE/WATER 1 50ML.BAG IVPB SCH (23:14)
[2017-06-08] MEDS: TIOTROPIUM 18 MCG/PUFF INHALER INHALATION SCH (07:11)
[2017-06-08] MEDS: SYMBICORT 160-4.5 MCG INHALER INHALATION SCH ×2 (07:12→19:28)
[2017-06-08 07:42] LABS: Glucose,Whole Blood 135 mg/dL (75-99)
[2017-06-08] MEDS: FERROUS SULFATE 325 MG TAB PO SCH ×2 (08:00→15:20)
[2017-06-08] MEDS: FUROSEMIDE 20 MG TAB PO SCH (08:00)
[2017-06-08] MEDS: INSULN ASP PRT/INSULIN ASPART 100 UNIT/ML 10 ML VIAL SQ SCH ×2 (08:01→17:25)
[2017-06-08] MEDS: LACTOBACILLUS ACIDOPH & BULGAR 1 EACH PACKET PO SCH ×2 (08:01→20:35)
[2017-06-08] MEDS: HEPARIN SODIUM,PORCINE 5,000 UNIT/ML 1 ML VIAL SQ SCH ×3 (08:01→23:23)
[2017-06-08] MEDS: FAMOTIDINE 20 MG TAB PO SCH (08:01)
[2017-06-08] MEDS: METOPROLOL TARTRATE 12.5 MG TAB PO SCH ×2 (08:01→20:35)
[2017-06-08] MEDS: PANTOPRAZOLE 40 MG TABLET PO SCH (08:01)
[2017-06-08] MEDS: COLCHICINE 0.6 MG TAB PO SCH ×2 (08:01→20:35)
[2017-06-08] MEDS: LORATADINE 10 MG TAB PO SCH (08:02)
[2017-06-08] MEDS: NYSTATIN 100,000 UNIT/GM POWD 15 GM TOPICAL SCH ×2 (08:02→20:35)
[2017-06-08 09:45] LABS: Anisocytosis Slight; Basophils % (A) 0 %; CH 29.4; CHCM 33.1; Eosinophils # (A) 0.2 k/uL (0-0.7); Eosinophils % (A) 2 %; HCT 38.4 % (39.0-53.0); HDW 3.41; HGB 12.8 gm/dL (13.0-17.5); Luc # (Auto) 0.45; Luc % (Auto) 4; Lymphocytes # (A) 1.5 k/uL (1.0-4.8); Lymphocytes % (A) 13 %; MCH 29.9 pg (25.0-35.0); MCHC 33.4 g/dL (31.0-37.0); MCV 89.4 fL (80.0-100.0); Mean Platelet Volume 7.6; Monocytes # (A) 1.2 k/uL (0-1.0); Monocytes % (A) 10 %; Neutrophils # (A) 8.2 k/uL (1.3-7.7); Neutrophils % (A) 71 %; Poikilocytosis Slight; RDW 18.8 % (11.5-15.5); WBC 11.6 k/uL (3.8-10.6); WBC (Perox) 12.46
[2017-06-08 09:47] LABS: Calcium 8.2 mg/dL (8.4-10.2); Potassium 3.6 mmol/L (3.5-5.1); Total Bilirubin 0.4 mg/dL (0.2-1.3); Total Protein 6.3 g/dL (6.3-8.2)
--- NOTE | 2017-06-08 10:48 | P.PN ---
Subjective Principal diagnosis: Mental status changes elevated liver enzymes 76-year-old male reevaluated today in regards to multiple complaints that admission including reported diarrhea mental status changes and persistent elevation of liver enzymes. This morning he is confused. Denies left upper quadrant pain. No diarrhea per nursing. Afebrile. Ct performed yesterday; reviewed. Transaminases 200 range today. Objective - Vital Signs Vital signs: Vital Signs Temp 97.1 F L 06/08/17 07:00 Pulse 73 06/08/17 07:00 Resp 20 06/08/17 07:00 BP 134/71 06/08/17 07:00 Pulse Ox 97 06/08/17 07:00 Intake & Output 06/07/17 06/08/17 06/08/17 18:59 06:59 18:59 Intake Total 50 Output Total 350 Balance -350 50 Intake: Intake, IV Titration 50 Amount Levofloxacin 250Mg-D5w 50 Pmx 250 mg In Dextrose/ Water 1 50ml.bag @ 50 mls /hr IVPB Q24H YONATHAN Rx#: [id number] Output: Urine 350 Other: Voiding Method Urinal Urinal Urinal Diaper Diaper Diaper # Voids 2 3 # Bowel Movements 2 1 - Exam General appearance: The patient is alert, in no acute distress but confused. HET: Head is normocephalic and atraumatic. Pupils are equal and reactive. Oropharynx is clear without lesions. Neck: Supple without lymphadenopathy. Trachea midline. Heart: S1 S2. Regular rate and rhythm. Lungs: No crackles or wheezes are heard. Abdomen: Soft, left upper quadrant tenderness, nondistended with bowel sounds. No peritoneal signs. No palpable organomegaly or masses. Extremities: Normal skin color and turgor. No cyanosis, rash, ulceration, clubbing, or edema. Radial and pedal pulses are 2/4 bilaterally. Neurological: No focal deficits. Strength and sensation are grossly intact. - Labs CBC & Chem 7: 06/08/17 08:48 06/08/17 08:48 Labs: Abnormal Lab Results - Last 24 Hours (Table) 06/07/17 06/07/17 06/07/17 Range/Units 11:34 17:28 21:04 WBC (3.8-10.6) k/uL Hgb (13.0-17.5) gm/dL Hct (39.0-53.0) % RDW (11.5-15.5) % Neutrophils # (1.3-7.7) k/uL Monocytes # (0-1.0) k/uL Chloride (98-107) mmol/L Carbon Dioxide (22-30) mmol/L BUN (9-20) mg/dL Creatinine (0.66-1.25) mg/dL Glucose (74-99) mg/dL POC Glucose (mg/dL) 129 H 145 H 101 H (75-99) mg/dL Calcium (8.4-10.2) mg/dL AST (17-59) U/L ALT (21-72) U/L Alkaline Phosphatase (38-126) U/L Albumin (3.5-5.0) g/dL Lipase (23-300) U/L 06/08/17 06/08/17 06/08/17 Range/Units 07:38 08:48 08:48 WBC 11.6 H (3.8-10.6) k/uL Hgb 12.8 L (13.0-17.5) gm/dL Hct 38.4 L (39.0-53.0) % RDW 18.8 H (11.5-15.5) % Neutrophils # 8.2 H (1.3-7.7) k/uL Monocytes # 1.2 H (0-1.0) k/uL Chloride 114 H (98-107) mmol/L Carbon Dioxide 14 L (22-30) mmol/L BUN 34 H (9-20) mg/dL Creatinine 2.36 H (0.66-1.25) mg/dL Glucose 127 H (74-99) mg/dL POC Glucose (mg/dL) 135 H (75-99) mg/dL Calcium 8.2 L (8.4-10.2) mg/dL AST 217 H (17-59) U/L ALT 276 H (21-72) U/L Alkaline Phosphatase 199 H (38-126) U/L Albumin 2.6 L (3.5-5.0) g/dL Lipase 420 H (23-300) U/L Microbiology - Last 24 Hours (Table) 06/05/17 11:45 Blood Culture Gram Stain - Final Blood Blood Culture - Final Alpha Hemolytic Streptococcus Alpha Hemolytic Streptococcus#2 Non Hemolytic Strep Neisseria sicca Alpha Hemolytic Streptococcus#3 06/06/17 12:09 Blood Culture - Preliminary Blood No Growth after 24 hours Assessment and Plan (1) Elevated liver enzymes Narrative/Plan: Suspect nonalcoholic fatty liver disease possible steatohepatitis. Comorbidities including morbid obesity hypertension hyperlipidemia and diabetes mellitus. Retained common bile duct stone or subacute gallstone pancreatitis felt to be less lately however cannot be entirely excluded. Status: Acute (2) Diarrhea Narrative/Plan: Reports of diarrhea from patient however clinically nursing staff reports a few episodes of looser stools nothing excessive Status: Acute (3) Mental status change Narrative/Plan: Possible metabolic possible hepatic encephalopathy. Gram-positive cocci in chains reported in blood cultures. Status: Acute (4) Cholelithiasis Status: Chronic (5) Elevated lipase Narrative/Plan: Nonspecific. Possibility of underlying gallstone pancreatitis cannot be entirely excluded with recent reports of left upper quadrant abdominal pain. Status: Acute (6) Bacteremia Narrative/Plan: Gram-positive cocci in chains infectious disease consulted Status: Acute (7) Left upper quadrant abdominal pain of unknown etiology Status: Acute Plan: 1. Continue present medical therapy. CT report reviewed by Dr. Farmer; recommend outpatient colonoscopy if one has not been performed in the last year. 2. We'll continue to follow. Assessment and plan a care discussed with Dr. Farmer
[2017-06-08 11:52] LABS: Glucose,Whole Blood 97 mg/dL (75-99)
--- NOTE | 2017-06-08 11:53 | P.PN ---
Subjective Principal diagnosis: 76-year-old male who presented to the emergency room on 06/04/2017 with a chief complaint of abdominal pain, nausea, and mental status changes. He was currently residing at [facility] [place]. The patient had a recent admission to the hospital from 05/28/2017 to 2016. The patient was also admitted for abdominal pain, diarrhea, nausea during this admission. At that time a computed tomography scan of the abdomen revealed cholelithiasis and wall thickening of the mild to distal sigmoid colon secondary to mild colitis. The patient's LFTs were elevated at that time. His alkaline phosphatase is chronically elevated. His bilirubin was normal. GI service was consult and and there was no intervention per their service. Dr. West was consulted during that admission as well. The patient underwent an upper GI which was negative for obstruction. He also underwent a modified barium swallow which did not show any evidence of aspiration. GI was consulted again this admission due to elevated ALTs, AST, and lipase. Ammonia level was ordered and was in normal range. MRCP was ordered was unable to be completed due to patient size. Case discussed with Jennifer Chung NP. Patient will likely need liver biopsy outpatient and/or open MRI. Infectious disease was consulted due to positive blood culture. The patient is currently receiving levofloxacin. Additionally he was started on daptomycin per Dr. Carbajal. C. diff was negative. Stool culture is pending. The patient was seen and examined this morning. Patient is extremely confused this morning. He was telling me he was at [facility] and he was upset with his because she dumped him and left him there. I explained to the patient that he was at the hospital and he stated 'Yeah thats what everyone keeps telling me but I am not in the hospital". He does state he has some left side abdominal pain but it is not as bad as yesterday. He denies any chest pain or shortness of breath. Per nursing, the patient has had two large bowel movements. He states he does not have an appetite and he did not eat his breakfast this morning. His vital signs have been stable. He is maintaining an oxygen saturation greater than 92% on 2 L nasal cannula. He is afebrile at this time. Objective - Vital Signs Vital signs: Vital Signs Temp 97.1 F L 06/08/17 07:00 Pulse 73 06/08/17 07:00 Resp 20 06/08/17 07:00 BP 134/71 06/08/17 07:00 Pulse Ox 97 06/08/17 07:00 Intake & Output 06/07/17 06/08/17 06/08/17 18:59 06:59 18:59 Intake Total 50 Output Total 350 Balance -350 50 Intake: Intake, IV Titration 50 Amount Levofloxacin 250Mg-D5w 50 Pmx 250 mg In Dextrose/ Water 1 50ml.bag @ 50 mls /hr IVPB Q24H [facility] Rx#: [id number] Output: Urine 350 Other: Voiding Method Urinal Urinal Urinal Diaper Diaper Diaper # Voids 2 3 # Bowel Movements 2 1 - Exam GENERAL: Awake. Confused. Appears in no acute distress. Pleasant. RESPIRATORY: Lungs clear bilaterally. No use of accessory muscles. Patient maintaining oxygen saturation greater than 92% on 2 L nasal cannula. CARDIOVASCULAR: S1 and S2 noted. Murmur noted. No JVD noted. EXTREMITIES: No edema noted. Palpable pedal pulses +2. ABDOMEN: Obese. Abdomen soft and round. bowel sounds auscultated 4 quadrants. Pain and tenderness noted upon palpation to left upper and lower quadrant - Labs CBC & Chem 7: 06/08/17 08:48 06/08/17 08:48 Labs: Abnormal Lab Results - Last 24 Hours (Table) 06/07/17 06/07/17 06/07/17 Range/Units 11:34 17:28 21:04 POC Glucose (mg/dL) 129 H 145 H 101 H (75-99) mg/dL 06/08/17 Range/Units 07:38 POC Glucose (mg/dL) 135 H (75-99) mg/dL Microbiology - Last 24 Hours (Table) 06/05/17 11:45 Blood Culture Gram Stain - Final Blood Blood Culture - Final Alpha Hemolytic Streptococcus Alpha Hemolytic Streptococcus#2 Non Hemolytic Strep Neisseria sicca Alpha Hemolytic Streptococcus#3 06/06/17 12:09 Blood Culture - Preliminary Blood No Growth after 24 hours Assessment and Plan Plan: ASSESSMENT: -Abdominal pain, present on admission, etiology unclear, abdominal ultrasound shows evidence of cholelithiasis. Abdominal CT scan shows distention of sigmoid colon. -Diarrhea, present on admission, C. diff negative, stool culture pending -Leukocytosis, present on admission, trending down, blood cultures show alpha hemolytic streptococcus, nonhemolytic strep, and Neisseria Sicca. -History of chronic kidney disease, stage IV, GFR 23 on admission -Essential hypertension -History of COPD, no evidence of acute exacerbation -Diabetes mellitus, type II -Obesity: BMI 30.0 -Elevated LFTs with chronic elevated alkaline phosphatase and normal bilirubin: Etiology unclear, suspect nonalcoholic fatty liver disease -Elevated lipase with normal amylase, present on admission, trending down: Etiology unknown PLAN: -GI on consult. Appreciate recommendations and input -Infectious disease on consult. Appreciate recommendations and input -Surgery, Dr. West on consult. Appreciate recommendations and input. -Continue levofloxacin and daptomycin per infectious disease recommendations -Patient unable to complete MRCP due to size-will likely require outpatient open MRI and/or liver biopsy per GI. -Patient to have outpatient colonoscopy per GI recommendations -Monitor labs -GI prophylaxis: Protonix 40mg PO daily -DVT prophylaxis: Heparin 5000 units subcu q8 hours -Monitor vital signs and address as appropriate -Monitor capillary blood glucose and address as appropriate The above impression and plan of care have been discussed and directed by signing physician. Julieta Rojo, nurse practitioner, acting as scribe for signing physician.
[2017-06-08] MEDS: metroNIDAZOLE 500 MG TAB PO SCH ×2 (15:19→21:46)
[2017-06-08] MEDS: MULTIVITAMINS, THERA 1 EACH TAB PO SCH (15:20)
[2017-06-08] MEDS: ASPIRIN 325 MG TAB PO SCH (15:20)
--- NOTE | 2017-06-08 15:59 | P.PN ---
Subjective Principal diagnosis: Abdominal pain Patient denies abdominal pain today. He is tolerating small volumes of food. He did have vomiting last night. His labs today show increase in ALT and AST at 276 and 217. His lipase is improved at 420 within normal amylase. Computed tomography scan yesterday did show some subtle narrowing of the sigmoid colon which was not present previously. His last colonoscopy was 5-6 years ago. He did have a bowel movement. Objective - Vital Signs Vital signs: Vital Signs Temp 98.1 F 06/08/17 15:00 Pulse 77 06/08/17 15:00 Resp 22 06/08/17 15:00 BP 132/71 06/08/17 15:00 Pulse Ox 96 06/08/17 15:00 Intake & Output 06/07/17 06/08/17 06/08/17 18:59 06:59 18:59 Intake Total 50 Output Total 350 600 Balance -350 50 -600 Intake: Intake, IV Titration 50 Amount Levofloxacin 250Mg-D5w 50 Pmx 250 mg In Dextrose/ Water 1 50ml.bag @ 50 mls /hr IVPB Q24H [facility] Rx#: [id number] Output: Urine 350 600 Other: Voiding Method Urinal Urinal Urinal Diaper Diaper Diaper # Voids 2 3 2 # Bowel Movements 2 1 - Exam Abdomen: Soft, nontender, nondistended - Labs CBC & Chem 7: 06/08/17 08:48 06/08/17 08:48 Labs: Abnormal Lab Results - Last 24 Hours (Table) 06/07/17 06/07/17 06/08/17 Range/Units 17:28 21:04 07:38 WBC (3.8-10.6) k/uL Hgb (13.0-17.5) gm/dL Hct (39.0-53.0) % RDW (11.5-15.5) % Neutrophils # (1.3-7.7) k/uL Monocytes # (0-1.0) k/uL Chloride (98-107) mmol/L Carbon Dioxide (22-30) mmol/L BUN (9-20) mg/dL Creatinine (0.66-1.25) mg/dL Glucose (74-99) mg/dL POC Glucose (mg/dL) 145 H 101 H 135 H (75-99) mg/dL Calcium (8.4-10.2) mg/dL AST (17-59) U/L ALT (21-72) U/L Alkaline Phosphatase (38-126) U/L Albumin (3.5-5.0) g/dL Lipase (23-300) U/L 06/08/17 06/08/17 Range/Units 08:48 08:48 WBC 11.6 H (3.8-10.6) k/uL Hgb 12.8 L (13.0-17.5) gm/dL Hct 38.4 L (39.0-53.0) % RDW 18.8 H (11.5-15.5) % Neutrophils # 8.2 H (1.3-7.7) k/uL Monocytes # 1.2 H (0-1.0) k/uL Chloride 114 H (98-107) mmol/L Carbon Dioxide 14 L (22-30) mmol/L BUN 34 H (9-20) mg/dL Creatinine 2.36 H (0.66-1.25) mg/dL Glucose 127 H (74-99) mg/dL POC Glucose (mg/dL) (75-99) mg/dL Calcium 8.2 L (8.4-10.2) mg/dL AST 217 H (17-59) U/L ALT 276 H (21-72) U/L Alkaline Phosphatase 199 H (38-126) U/L Albumin 2.6 L (3.5-5.0) g/dL Lipase 420 H (23-300) U/L Microbiology - Last 24 Hours (Table) 06/06/17 12:09 Blood Culture - Preliminary Blood No Growth after 48 hours 06/05/17 11:45 Blood Culture Gram Stain - Final Blood Blood Culture - Final Alpha Hemolytic Streptococcus Alpha Hemolytic Streptococcus#2 Non Hemolytic Strep Neisseria sicca Alpha Hemolytic Streptococcus#3 Assessment and Plan (1) Abdominal pain Narrative/Plan: Patient's symptoms keep waxing and waning. Liver enzymes remain elevated. Etiology for the patient's elevated liver enzymes as well as his intermittent abdominal pain and nausea is unclear. CAT scan findings noted. Patient may benefit from upper and lower endoscopy during this hospitalization. We'll defer to GI. Will follow with you. Status: Acute
[2017-06-08 17:15] LABS: Glucose,Whole Blood 121 mg/dL (75-99)
--- NOTE | 2017-06-08 17:39 | PN ---
PROGRESS NOTE DATE OF SERVICE: 06/08/2017. REASON FOR FOLLOWUP VISIT: 1. Positive blood cultures. 2. Possible colitis. INTERVAL HISTORY: The patient is afebrile. He is feeling better. Breathing comfortably. Denies any chest pain. No shortness of breath. No abdominal pain. Still has some diarrhea. EXAMINATION: Blood pressure 134/71 with a pulse of 73, temperature 97.1. He is 97% 2 L nasal cannula. General description is an elderly male, lying in bed, in no distress. RESPIRATORY SYSTEM: Unlabored breathing. Clear to auscultation anteriorly. HEART: S1, S2. Regular rate and rhythm. ABDOMEN: Soft, no tenderness. LABS: Hemoglobin 12.8, white count 11.6 with a BUN of 34, creatinine is 2.36. Blood culture with different pathogens; follow up blood culture 06/06 has been negative. DIAGNOSTIC IMPRESSION AND PLAN: 1. Patient with a positive blood culture with the diff pathogen that was done in the ER and more likely representing a contamination as the patient is currently not running any fever and a follow up blood cultures 06/06 was done before the patient was given antibiotic has been negative. Hence, recommend discontinuation of the daptomycin. 2. Patient who did have slight diarrhea with question of possible colitis. Stool C. Diff was negative. We will add Flagyl. Elevated white count response to the same. was present at the bedside. All her questions were answered. MMODL / IJN: [id number] /
[2017-06-08] MEDS: MIRTAZAPINE 15 MG TAB PO SCH (20:35)
[2017-06-08] MEDS: MELATONIN 3 MG TABLET PO SCH (20:35)
[2017-06-08 21:21] LABS: Glucose,Whole Blood 114 mg/dL (75-99)
[2017-06-08] MEDS: LEVOFLOXACIN 250MG-D5W PMX 250 MG in DEXTROSE/WATER 1 50ML.BAG IVPB SCH (23:24)
[2017-06-09 07:37] LABS: Glucose,Whole Blood 158 mg/dL (75-99)
[2017-06-09 07:54] VITALS: BP 97/58; RESP 20; TEMP 97.1
[2017-06-09] MEDS: FAMOTIDINE 20 MG TAB PO SCH ×2 (08:20→08:21)
[2017-06-09] MEDS: LORATADINE 10 MG TAB PO SCH (08:20)
[2017-06-09] MEDS: metroNIDAZOLE 500 MG TAB PO SCH (08:20)
[2017-06-09] MEDS: PANTOPRAZOLE 40 MG TABLET PO SCH (08:21)
[2017-06-09] MEDS: HEPARIN SODIUM,PORCINE 5,000 UNIT/ML 1 ML VIAL SQ SCH (08:21)
[2017-06-09] MEDS: COLCHICINE 0.6 MG TAB PO SCH (08:21)
[2017-06-09] MEDS: FERROUS SULFATE 325 MG TAB PO SCH (08:21)
[2017-06-09] MEDS: LACTOBACILLUS ACIDOPH & BULGAR 1 EACH PACKET PO SCH (08:22)
[2017-06-09] MEDS: NYSTATIN 100,000 UNIT/GM POWD 15 GM TOPICAL SCH (08:22)
[2017-06-09] MEDS: METOPROLOL TARTRATE 12.5 MG TAB PO SCH (08:22)
[2017-06-09] MEDS: INSULN ASP PRT/INSULIN ASPART 100 UNIT/ML 10 ML VIAL SQ SCH (08:22)
[2017-06-09] MEDS: SYMBICORT 160-4.5 MCG INHALER INHALATION SCH (09:02)
[2017-06-09] MEDS: TIOTROPIUM 18 MCG/PUFF INHALER INHALATION SCH (09:03)
[2017-06-09 09:08] VITALS: PULSE 92
[2017-06-09 09:51] LABS: Anisocytosis Slight; Basophils # (A) 0.1 k/uL (0-0.2); Basophils % (A) 0 %; CH 29.3; CHCM 31.5; Eosinophils # (A) 0.3 k/uL (0-0.7); Eosinophils % (A) 2 %; HCT 41.4 % (39.0-53.0); HDW 3.32; HGB 13.4 gm/dL (13.0-17.5); Hypochromasia Moderate; Luc # (Auto) 0.46; Luc % (Auto) 3; Lymphocytes # (A) 1.5 k/uL (1.0-4.8); Lymphocytes % (A) 10 %; MCH 30.4 pg (25.0-35.0); MCHC 32.4 g/dL (31.0-37.0); Macrocytosis Slight; Mean Platelet Volume 7.2; Monocytes # (A) 1.1 k/uL (0-1.0); Monocytes % (A) 8 %; Neutrophils # (A) 11.1 k/uL (1.3-7.7); Neutrophils % (A) 77 %; RDW 18.6 % (11.5-15.5); WBC 14.5 k/uL (3.8-10.6); WBC (Perox) 14.88
[2017-06-09 10:13] LABS: Calcium 8.3 mg/dL (8.4-10.2); Potassium 4.1 mmol/L (3.5-5.1); Total Bilirubin 0.5 mg/dL (0.2-1.3); Total Protein 6.6 g/dL (6.3-8.2)
[2017-06-09 11:27] LABS: Glucose,Whole Blood 187 mg/dL (75-99)
--- NOTE | 2017-06-09 13:47 | P.DS ---
Providers Date of admission: 06/04/17 19:04 Expected date of discharge: 06/09/17 Attending physician: Mariusz Jauregui Consults: 06/05/17 10:08 Consult Physician Routine Consulting Provider: Naun Khan Consult Reason/Comments: Elevated LFT, per Dr. Gross Do you want consulting provider notified?: Yes 06/06/17 08:40 Consult Physician Routine Consulting Provider: Kurtis Carbajal Consult Reason/Comments: positive blood cultures, leukocytosis Do you want consulting provider notified?: Yes 06/07/17 09:35 Consult Physician Routine Consulting Provider: Presley West Consult Reason/Comments: abdominal pain Do you want consulting provider notified?: Yes Primary care physician: Jim Gross [facility] Course: 76-year-old male who presented to the emergency room on 06/04/2017 with a chief complaint of abdominal pain, nausea, and mental status changes. He was currently residing at [facility] on [facility]. In the emergency room his white count was found to be 14.6. Urinalysis was completed which was negative for urinary tract infection. A stool sample was sent and was negative for C. diff. The patient had a recent admission to the hospital from 05/28/2017 to 2016. The patient was also admitted for abdominal pain, diarrhea, nausea during this admission. At that time a computed tomography scan of the abdomen revealed cholelithiasis and wall thickening of the mild to distal sigmoid colon secondary to mild colitis. The patient's LFTs were elevated at that time. His alkaline phosphatase is chronically elevated. His bilirubin was normal. GI service was consult and and there was no intervention per their service. Dr. West was consulted during that admission as well. The patient underwent an upper GI which was negative for obstruction. He also underwent a modified barium swallow which did not show any evidence of aspiration. Infectious disease was consulted due to positive blood cultures. The patient was receiving levafloxacin. Dr. Carbajal started the patient on Daptomcyin as well until the final cultures came back which were thought to be contamination per Dr. Carbajal. The patients Daptomycin was discontinued, but the patient was started on Flagyl. Stool culture remains pending. GI service was consulted again this admission. His lipase was elevated this admission at 602 and trending down into the 400s. His lipase was not elevatd at previous admission. It was 184 on 05-28-2017. His amylase remains normal between 43 and 61. His LFT remain elevated but stable. It was thought that the patient most rivero had nonalcoholic fatty liver disease. GI service ordered MRCP, however, patient was unable to fit inside the machine. Patient is to follow up with Dr Khan on an outpatient basis for possible open MRI. GI also stated patient may need liver biospy and colonoscopy in the outpatient setting. The patient underwent a CT of the abdomen and pelvis with oral contrast. Unable to have IV contrast due to his CKD. Results indicated colonic distention of the mid sigmoid colon. Underlying mass was not excluded. Nonspecific colitis was also a possibilty. Additionally, uncomplicated cholelithiasis was seen. Dr. West, surgeon, was consulted due to abdominal pain. There was no intervention at this time per Dr. West Discharge diagnosis: -Abdominal pain, nonspecific, present on admission, resolving, etiology unclear , abdominal ultrasound shows evidence of cholelithiasis. Abdominal CT scan shows distention of sigmoid colon. -Diarrhea, present on admission, resolving, C. diff negative, stool culture pending -Leukocytosis, present on admission, trending down, blood cultures show alpha hemolytic streptococcus, nonhemolytic strep, and Neisseria Sicca, thought to be contamination per infectious disease -History of chronic kidney disease, stage IV, GFR 23 on admission -Essential hypertension -History of COPD, no evidence of acute exacerbation -Diabetes mellitus, type II -Obesity: BMI 30.0 -Elevated LFTs with chronic elevated alkaline phosphatase and normal bilirubin: Etiology unclear, suspect nonalcoholic fatty liver disease -Elevated lipase with normal amylase, present on admission, trending down: Etiology unknown The above impression and plan of care have been discussed and directed by signing physician. Julieta Rojo, nurse practitioner, acting as scribe for signing physician. Patient Condition at Discharge: Stable Plan - Discharge Summary New Discharge Prescriptions: New Levofloxacin [Levaquin] 250 mg PO DAILY #7 tablet metroNIDAZOLE [Flagyl] 500 mg PO TID #21 tab Continue Ferrous Sulfate [Feosol] 325 mg PO BID@0900,1700 Docusate Sodium [Dulcolax Stool Softener] 100 mg PO DAILY@0900 Multivitamin [Men's Multi-Vitamin] 1 tab PO DAILY@1700 Loratadine [Claritin] 10 mg PO DAILY@0900 Atorvastatin [Lipitor] 80 mg PO HS@2100 Ondansetron [Zofran] 4 mg PO Q6HR PRN PRN Reason: Nausea And Vomiting Melatonin 3 mg PO HS guaiFENesin SYRUP 100MG/5ML [Robitussin] 200 mg PO Q12H PRN PRN Reason: Cough Albuterol Nebulized [Ventolin Nebulized] 2.5 mg INHALATION RT-Q4H PRN PRN Reason: Shortness Of Breath Ketoconazole 2% Shampoo [Nizoral] 1 applic TOPICAL SUTH Calcium Carbonate [Tums] 500 mg PO Q6H PRN PRN Reason: ACID REFLUX SILVER sulfADIAZINE Cream [Silvadene 1% Cream] 1 applic TOPICAL DAILY PRN PRN Reason: CELLULITIS Bismuth Subsalicylate [Pepto-Bismol] 262 mg PO Q4H PRN PRN Reason: Gi Upset Magnesium Hydroxide [Milk of Magnesia] 2,400 mg PO Q4H PRN PRN Reason: Constipation Loperamide [Imodium] 2 mg PO Q6H PRN PRN Reason: Loose Stool Ipratropium-Albuterol Nebulize [Duoneb 0.5 mg-3 mg/3 ml Soln] 3 ml INHALATION RT-QID PRN PRN Reason: Shortness Of Breath Insulin Lispro [humaLOG Kwikpen] See Protocol SQ ACHS Budesonide/Formoterol Fumarate [Symbicort 160-4.5 Mcg Inhaler] 2 puff INHALATION RT-BID Metoprolol Tartrate [Lopressor] 12.5 mg PO BID Colchicine 0.6 mg PO BID Tiotropium 18 Mcg/Puff [Spiriva] 1 cap INHALATION RT-DAILY Insulin Aspart Protam & Aspart [NovoLOG MIX 70-30 Flexpen] 35 unit SQ DAILY@ 0900 Insulin Aspart Protam & Aspart [NovoLOG MIX 70-30 Flexpen] 10 unit SQ DAILY@ 1700 Famotidine [Pepcid] 20 mg PO QAM Mirtazapine 7.5 mg PO HS@2100 Furosemide [Lasix] 20 mg PO Q48H Aspirin EC [Ecotrin] 325 mg PO DAILY@1700 Mylanta 30 ml PO Q4H PRN PRN Reason: Gi Upset L.acidoph,Paracasei, B.lactis [Probiotic] 1 cap PO BID Liraglutide [Victoza 2-Yazan] 1.8 mg SQ DAILY Tolnaftate [Tinactin Powder] 1 applic TOPICAL BID HYDROcodone/APAP 5-325MG [[place] 5-325] 1 tab PO Q6HR PRN #30 tab PRN Reason: Pain Discharge Medication List Albuterol Nebulized [Ventolin Nebulized] 2.5 mg INHALATION RT-Q4H PRN 10/29/14 [ History] Atorvastatin [Lipitor] 80 mg PO HS@2100 10/29/14 [History] Docusate Sodium [Dulcolax Stool Softener] 100 mg PO DAILY@0910/29/14 [History ] Ferrous Sulfate [Feosol] 325 mg PO BID@0900,1700 10/29/14 [History] Loratadine [Claritin] 10 mg PO DAILY@0910/29/14 [History] Melatonin 3 mg PO HS 10/29/14 [History] Multivitamin [Men's Multi-Vitamin] 1 tab PO DAILY@17010/29/14 [History] Ondansetron [Zofran] 4 mg PO Q6HR PRN 10/29/14 [History] guaiFENesin SYRUP 100MG/5ML [Robitussin] 200 mg PO Q12H PRN 10/29/14 [History] Aspirin EC [Ecotrin] 325 mg PO DAILY@17005/28/17 [History] Bismuth Subsalicylate [Pepto-Bismol] 262 mg PO Q4H PRN 05/28/17 [History] Budesonide/Formoterol Fumarate [Symbicort 160-4.5 Mcg Inhaler] 2 puff INHALATION RT-BID 05/28/17 [History] Calcium Carbonate [Tums] 500 mg PO Q6H PRN 05/28/17 [History] Colchicine 0.6 mg PO BID 05/28/17 [History] Famotidine [Pepcid] 20 mg PO QAM 05/28/17 [History] Furosemide [Lasix] 20 mg PO Q48H 05/28/17 [History] Insulin Aspart Protam & Aspart [NovoLOG MIX 70-30 Flexpen] 10 unit SQ DAILY@ 1700 05/28/17 [History] Insulin Aspart Protam & Aspart [NovoLOG MIX 70-30 Flexpen] 35 unit SQ DAILY@ 0900 05/28/17 [History] Insulin Lispro [humaLOG Kwikpen] See Protocol SQ ACHS 05/28/17 [History] Ipratropium-Albuterol Nebulize [Duoneb 0.5 mg-3 mg/3 ml Soln] 3 ml INHALATION RT -QID PRN 05/28/17 [History] Ketoconazole 2% Shampoo [Nizoral] 1 applic TOPICAL SUTH 05/28/17 [History] Loperamide [Imodium] 2 mg PO Q6H PRN 05/28/17 [History] Magnesium Hydroxide [Milk of Magnesia] 2,400 mg PO Q4H PRN 05/28/17 [History] Metoprolol Tartrate [Lopressor] 12.5 mg PO BID 05/28/17 [History] Mirtazapine 7.5 mg PO HS@2100 05/28/17 [History] Mylanta 30 ml PO Q4H PRN 05/28/17 [History] SILVER sulfADIAZINE Cream [Silvadene 1% Cream] 1 applic TOPICAL DAILY PRN [History] Tiotropium 18 Mcg/Puff [Spiriva] 1 cap INHALATION RT-DAILY 05/28/17 [History] L.acidoph,Paracasei, B.lactis [Probiotic] 1 cap PO BID 06/04/17 [History] Liraglutide [Victoza 2-Yazan] 1.8 mg SQ DAILY 06/04/17 [History] Tolnaftate [Tinactin Powder] 1 applic TOPICAL BID 06/04/17 [History] HYDROcodone/APAP 5-325MG [[place] 5-325] 1 tab PO Q6HR PRN #30 tab 06/09/17 [Rx] Levofloxacin [Levaquin] 250 mg PO DAILY #7 tablet 06/09/17 [Rx] metroNIDAZOLE [Flagyl] 500 mg PO TID #21 tab 06/09/17 [Rx] Follow up Appointment(s)/Referral(s): Naun Khan MD [STAFF PHYSICIAN] - 06/26/17 4:00 pm Jim Gross MD [Primary Care Provider] - 1-2 days Activity/Diet/Wound Care/Special Instructions: Consistent Carbohydrate/Diabetic Diet, patient tolerates soft foods better Turn q2 hours and PRN Discharge Disposition: TRANSFER TO SNF/ECF
--- NOTE | 2017-06-09 15:34 | PN ---
PROGRESS NOTE DATE OF SERVICE: 06/09/2017 REASON FOR FOLLOWUP: 1. Positive blood culture, likely contamination. 2. Possible colitis. INTERVAL HISTORY: The patient is afebrile. He is feeling better, breathing comfortably. He did mention to me that the abdominal pain is less. No nausea, vomiting. Diarrhea seems to be improving and he did have some formed stool. PHYSICAL EXAMINATION: Blood pressure 97/58 with a pulse of 80, temperature 97.1. He is 97% on 2 L nasal cannula. GENERAL DESCRIPTION: Elderly male lying in bed in no distress. RESPIRATORY SYSTEM: Unlabored breathing. Clear to auscultation anteriorly. HEART: S1, S2. Regular rate and rhythm. ABDOMEN: Soft. No tenderness. LABS: White count slightly elevated at 14.5 with a BUN of 33, creatinine 2.33. DIAGNOSTIC IMPRESSION AND PLAN: 1. Patient with a positive blood culture with multiple pathogens; could be more likely contamination. Repeat blood culture has been negative. Patient was afebrile on admission. 2. Patient with a CT finding of some colitis. Diarrhea seems to have improved. He is on Levaquin and Flagyl. That may continue for about a week with close outpatient followup. MMODL / IJN: [id number] /
== END 2017-06-09 15:01 | DRG 442 ==
LOC: EC 14:08 → 4MS4W 19:04
PROVIDERS: ADMIT Family Medicine; ATTEND Family Medicine
DX: K76.0 Fatty (change of) liver, not elsewhere classified (principal); N18.4 Chronic kidney disease, stage 4 (severe); E11.22 Type 2 diabetes mellitus with diabetic chronic kidney disease; J44.9 Chronic obstructive pulmonary disease, unspecified; E66.01 Morbid (severe) obesity due to excess calories; E78.5 Hyperlipidemia, unspecified; I12.9 Hypertensive chronic kidney disease with stage 1 through stage 4 chronic kidney disease, or unspecified chronic kidney disease; K52.9 Noninfective gastroenteritis and colitis, unspecified; K80.20 Calculus of gallbladder without cholecystitis without obstruction; Z96.653 Presence of artificial knee joint, bilateral; M10.9 Gout, unspecified; Z96.643 Presence of artificial hip joint, bilateral; Z16.21 Resistance to vancomycin; Z79.4 Long term (current) use of insulin; Z79.51 Long term (current) use of inhaled steroids; Z79.899 Other long term (current) drug therapy; Z82.49 Family history of ischemic heart disease and other diseases of the circulatory system; Z85.828 Personal history of other malignant neoplasm of skin; Z87.891 Personal history of nicotine dependence; Z88.1 Allergy status to other antibiotic agents; Z88.5 Allergy status to narcotic agent; Z88.0 Allergy status to penicillin
CPT/HCPCS: 36415; 71010; 74176; 76705; 80053; 81001; 82140; 82150; 82553; 83605; 83690; 83735; 84484; 85025; 85610; 87040; 87045; 87046; 87086; 87324; 93005; 94640; 94760; 96361; 96365; 96375; 99285

== ENCOUNTER 2017-06-12 16:53 | Emergency (ER) | payer MEDICARE, BC, OTHER ==
[2017-06-12 17:02] VITALS: RESP 18
[2017-06-12] MEDS ORDERED: SODIUM CHLORIDE 0.9% 1,000 ML IV STA ×2 (17:22)
[2017-06-12] MEDS ORDERED: PANTOPRAZOLE 40 MG/10 ML VIAL IVP STA (17:22)
--- NOTE | 2017-06-12 17:27 | ED ---
General Adult HPI - General Chief complaint: Recheck/Abnormal Lab/Rx Stated complaint: Abnormal Labs Time Seen by Provider: 06/12/17 16:57 Source: patient, RN/MD, EMS Mode of arrival: EMS Limitations: no limitations - History of Present Illness Initial comments: 76-year-old white male presents by EMS from [facility]. He relates that he has been having gallbladder problems. He states that he has multiple stones in his gallbladder. He further relates that he will have some nausea, vomiting, and abdominal pain after any attempts at eating. He is had some recent diarrhea but states that this stopped last night after having Pepto-Bismol. He denies any current abdominal pain or nausea. He was sent over with documentation from [facility] stating that he has a primary diagnosis of colitis and is currently on Levaquin and Flagyl. They did some blood work at 3:15 AM today and this showed multiple abnormalities including some acute kidney injury and elevation of liver function studies as well as a decreased CO2 of 16. The patient denies any fevers, chills, chest pain, or shortness breath. He denies any other complaints or modifying factors. - Related Data Home Medications Medication Instructions Recorded Confirmed Atorvastatin [Lipitor] 80 mg PO HS 10/29/14 06/12/17 Docusate Sodium [Dulcolax Stool 100 mg PO DAILY 10/29/14 06/12/17 Softener] Ferrous Sulfate [Feosol] 325 mg PO BID 10/29/14 06/12/17 Loratadine [Claritin] 10 mg PO DAILY 10/29/14 06/12/17 Melatonin 3 mg PO HS 10/29/14 06/12/17 Ondansetron [Zofran] 4 mg PO Q6HR PRN 10/29/14 06/12/17 guaiFENesin SYRUP 100MG/5ML 200 mg PO Q12H PRN 10/29/14 06/12/17 [Robitussin] Aspirin EC [Ecotrin] 325 mg PO DAILY 05/28/17 06/12/17 Bismuth Subsalicylate 262 mg PO Q4H PRN 05/28/17 06/12/17 [Pepto-Bismol] Calcium Carbonate [Tums] 500 mg PO Q6H PRN 05/28/17 06/12/17 Colchicine 0.6 mg PO BID 05/28/17 06/12/17 Famotidine [Pepcid] 20 mg PO QAM 05/28/17 06/12/17 Furosemide [Lasix] 20 mg PO Q48H 05/28/17 06/12/17 Insulin Aspart Protam & Aspart 10 unit SQ DAILY@1700 05/28/17 06/12/17 [NovoLOG MIX 70-30 Flexpen] Insulin Aspart Protam & Aspart 35 unit SQ DAILY@0900 05/28/17 06/12/17 [NovoLOG MIX 70-30 Flexpen] Insulin Lispro [humaLOG Kwikpen] See Protocol SQ ACHS 05/28/17 06/12/17 Ipratropium-Albuterol Nebulize 3 ml INHALATION RT-QID PRN 05/28/17 06/12/17 [Duoneb 0.5 mg-3 mg/3 ml Soln] Ketoconazole 2% Shampoo [Nizoral] 1 applic TOPICAL SUTH 05/28/17 06/12/17 Loperamide [Imodium] 2 mg PO Q6H PRN 05/28/17 06/12/17 Metoprolol Tartrate [Lopressor] 12.5 mg PO Q12H 05/28/17 06/12/17 Mirtazapine 7.5 mg PO HS 05/28/17 06/12/17 Mylanta 30 ml PO Q4H PRN 05/28/17 06/12/17 SILVER sulfADIAZINE Cream 1 applic TOPICAL DAILY PRN 05/28/17 06/12/17 [Silvadene 1% Cream] Tiotropium 18 Mcg/Puff [Spiriva] 1 cap INHALATION RT-DAILY 05/28/17 06/12/17 L.acidoph,Paracasei, B.lactis 1 cap PO BID 06/04/17 06/12/17 [Probiotic] Liraglutide [Victoza 2-Yazan] 1.8 mg SQ QAM 06/04/17 06/12/17 Tolnaftate [Tinactin Powder] 1 applic TOPICAL BID 06/04/17 06/12/17 Magnesium Hydroxide [Milk of 7,200 mg PO Q4H PRN 06/12/17 06/12/17 Magnesia Concentrate] Multivitamins, Thera [Multivitamin 1 tab PO DAILY 06/12/17 06/12/17 (formulary)] Previous Rx's Medication Instructions Recorded HYDROcodone/APAP 5-325MG [[place] 1 tab PO Q6HR PRN #30 tab 06/09/17 5-325] Levofloxacin [Levaquin] 250 mg PO DAILY #7 tablet 06/09/17 metroNIDAZOLE [Flagyl] 500 mg PO TID #21 tab 06/09/17 Allergies Allergy/AdvReac Type Severity Reaction Status Date / Time meropenem [From Merrem] Allergy Severe Rash/Hives Verified 06/12/17 17:44 Cephalosporins Allergy Unknown Verified 05/28/17 16:17 morphine Allergy Unknown Verified 06/12/17 17:44 Penicillins Allergy Unknown Verified 05/28/17 16:17 vancomycin Allergy Rash/Hives Verified 06/12/17 17:44 Review of Systems ROS Statement: Those systems with pertinent positive or pertinent negative responses have been documented in the HPI. ROS Other: All systems not noted in ROS Statement are negative. 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 difficile colitis March 2014 History of Any Multi-Drug Resistant Organisms: ESBL, MRSA, VRE Date of last positivie culture/infection: 01/05/15-VRE; 10/21/14 MRSA MDRO Source:: Urine-VRE & ESBL; Left Hip-MRSA Past Surgical History: Appendectomy, Orthopedic Surgery, Tonsillectomy Additional Past Surgical History / Comment(s): [place] Total knee replacements, right total hip replacement, total left hip July 2013 and revision September 2013 due to septic athritis, I&D of seroma of the left total hip 10/09/2013, hemorrhoid ligation which required suturing, EGD with biopsy with mild gastritis and small hiatal hernia, colonoscopy with diverticulosis and internal and external hemorrhoids. Past Anesthesia/Blood Transfusion Reactions: Previous Problems w/ Anesthesia, Postoperative Nausea & Vomiting (PONV) Past Psychological History: No Psychological Hx Reported Smoking Status: Former smoker Past Alcohol Use History: Rare Past Drug Use History: None Reported - Past Family History Mother Family Medical History: Myocardial Infarction (MA) Additional Family Medical History / Comment(s): Father and grandparents had heart attacks General Exam - General Exam Comments Initial Comments: GENERAL: The patient is well nourished but dehydrated. VITAL SIGNS: Heart rate, blood pressure, respiratory rate reviewed as recorded in nurse's notes. EYES: Pupils are round and reactive. Extraocular movements are intact. No conjunctival / lid redness or swelling. ENT: No external evidence of injury, swelling, or ecchymosis. Airway is patent. Throat is clear. Mucous membranes are dry. NECK: Nontender. No swelling or evidence of injury. No subcutaneous emphysema. Trachea is midline. No thyroid mass. HEART: Regular rate and rhythm. Good peripheral pulses. LUNGS/CHEST: Breath sounds clear and equal bilaterally. No rales, rhonchi, or wheezes. No ecchymosis, subcutaneous emphysema, or tenderness. ABDOMEN: Abdomen soft without tenderness. No palpable masses or organomegaly. No peritoneal signs. No abdominal wall swelling or ecchymosis. EXTREMITIES: No extremity tenderness. Normal muscle tone and function. No thoracolumbar tenderness. NEUROLOGIC: Sensation is grossly intact. Cranial nerve exam reveals face is symmetrical, tongue is midline, speech is clear. SKIN: No abrasions or ecchymosis is noted. No induration or masses noted. PSYCHIATRIC: Alert and oriented. Appropriate behavior and judgment. Limitations: no limitations Course Vital Signs 06/12/17 06/12/17 06/12/17 16:56 18:46 19:08 Temperature 97 F L 97.7 F Pulse Rate 89 89 89 Respiratory 18 18 18 Rate Blood Pressure 113/60 109/64 126/73 O2 Sat by Pulse 91 L 92 L 95 Oximetry 06/12/17 20:49 Temperature 98.0 F Pulse Rate 81 Respiratory 18 Rate Blood Pressure 123/69 O2 Sat by Pulse 94 L Oximetry Medical Decision Making - Medical Decision Making The patient was seen and examined. All diagnostics were reviewed. An IV is started and he is hydrated. The patient had an EKG done which shows a normal sinus rhythm at a rate of 90. There is nonspecific ST-T wave changes noted with primarily diffuse flattening of T waves. There is no ST elevation. The NE interval is 244, QRS duration is 84, and QTc interval is 367. The patient also had a gallbladder ultrasound with social multiple gallstones but no gallbladder wall thickening or dilation of the gallbladder ducts. The acute abdominal series shows multiple dilated loops of bowel but no definite obstruction. The urinalysis is equivocal for urinary infection. The laboratory shows elevation of the liver function studies as well as slight elevation of the lipase and white blood cell count. It appears that his abdominal pain, nausea, and vomiting has been quite recurrent. The case is discussed with his primary care physician Dr. Gross, and he relates that he is had difficulties and hitting the patient better. They know that his gallbladder should come out but he is at very high risk for potential complications. He is had gastroenterology as well as general surgery see him in the past and they do not feel as though he is a good surgical candidate. In addition, the patient is morbidly obese and apparently will not fit in the scanner for a MRCP. He relates that they will admit him and hydrate him and he seems to do better and then when they discharged him back to the [facility] the same scenario will occur. Dr. Gross is recommending that the patient be transferred to a larger facility for further evaluation and treatment and potential MRI or MRCP via open unit without weight limits. The family would like him transferred to [facility]. The case is discussed with Dr. English from the emergency department and they accept the transfer. Appropriate work is completed. - Lab Data Result diagrams: 06/12/17 17:15 06/12/17 17:15 Lab Results 06/12/17 06/12/17 06/12/17 Range/Units 17:15 17:15 17:15 WBC 13.4 H (3.8-10.6) k/uL RBC 4.65 (4.30-5.90) m/uL Hgb 14.3 (13.0-17.5) gm/dL Hct 43.5 (39.0-53.0) % MCV 93.4 (80.0-100.0) fL MCH 30.6 (25.0-35.0) pg MCHC 32.8 (31.0-37.0) g/dL RDW 19.7 H (11.5-15.5) % Plt Count 341 (150-450) k/uL Neutrophils % 76 % Lymphocytes % 9 % Monocytes % 9 % Eosinophils % 2 % Basophils % 0 % Neutrophils # 10.1 H (1.3-7.7) k/uL Lymphocytes # 1.3 (1.0-4.8) k/uL Monocytes # 1.2 H (0-1.0) k/uL Eosinophils # 0.2 (0-0.7) k/uL Basophils # 0.1 (0-0.2) k/uL Hypochromasia Slight Anisocytosis Slight Macrocytosis Slight PT 11.8 (9.0-12.0) sec INR 1.2 H (<1.2) APTT 28.8 (22.0-30.0) sec Sodium 140 (137-145) mmol/L Potassium 4.3 (3.5-5.1) mmol/L Chloride 111 H (98-107) mmol/L Carbon Dioxide 15 L (22-30) mmol/L Anion Gap 14 mmol/L BUN 42 H (9-20) mg/dL Creatinine 2.91 H (0.66-1.25) mg/dL Est GFR (MDRD) Af Amer 26 (>60 ml/min/1.73 sqM) Est GFR (MDRD) Non-Af 21 (>60 ml/min/1.73 sqM) Glucose 126 H (74-99) mg/dL Plasma Lactic Acid Wilber (0.7-2.0) mmol/L Calcium 8.3 L (8.4-10.2) mg/dL Total Bilirubin 0.7 (0.2-1.3) mg/dL AST 342 H (17-59) U/L ALT 362 H (21-72) U/L Alkaline Phosphatase 253 H (38-126) U/L Total Protein 7.2 (6.3-8.2) g/dL Albumin 3.0 L (3.5-5.0) g/dL Amylase 46 (30-110) U/L Lipase 369 H (23-300) U/L Urine Color Urine Appearance (Clear) Urine pH (5.0-8.0) Ur Specific [place] (1.001-1.035) Urine Protein (Negative) Urine Glucose (UA) (Negative) Urine Ketones (Negative) Urine Blood (Negative) Urine Nitrite (Negative) Urine Bilirubin (Negative) Urine Urobilinogen (<2.0) mg/dL Ur Leukocyte Esterase (Negative) Urine RBC (0-5) /hpf Urine WBC (0-5) /hpf Ur Squamous Epith Cells (0-4) /hpf Urine Bacteria (None) /hpf Hyaline Casts (0-2) /lpf Granular Casts (0) /lpf Urine Mucus (None) /hpf 06/12/17 06/12/17 Range/Units 17:30 17:53 WBC (3.8-10.6) k/uL RBC (4.30-5.90) m/uL Hgb (13.0-17.5) gm/dL Hct (39.0-53.0) % MCV (80.0-100.0) fL MCH (25.0-35.0) pg MCHC (31.0-37.0) g/dL RDW (11.5-15.5) % Plt Count (150-450) k/uL Neutrophils % % Lymphocytes % % Monocytes % % Eosinophils % % Basophils % % Neutrophils # (1.3-7.7) k/uL Lymphocytes # (1.0-4.8) k/uL Monocytes # (0-1.0) k/uL Eosinophils # (0-0.7) k/uL Basophils # (0-0.2) k/uL Hypochromasia Anisocytosis Macrocytosis PT (9.0-12.0) sec INR (<1.2) APTT (22.0-30.0) sec Sodium (137-145) mmol/L Potassium (3.5-5.1) mmol/L Chloride (98-107) mmol/L Carbon Dioxide (22-30) mmol/L Anion Gap mmol/L BUN (9-20) mg/dL Creatinine (0.66-1.25) mg/dL Est GFR (MDRD) Af Amer (>60 ml/min/1.73 sqM) Est GFR (MDRD) Non-Af (>60 ml/min/1.73 sqM) Glucose (74-99) mg/dL Plasma Lactic Acid Wilber 1.1 (0.7-2.0) mmol/L Calcium (8.4-10.2) mg/dL Total Bilirubin (0.2-1.3) mg/dL AST (17-59) U/L ALT (21-72) U/L Alkaline Phosphatase (38-126) U/L Total Protein (6.3-8.2) g/dL Albumin (3.5-5.0) g/dL Amylase (30-110) U/L Lipase (23-300) U/L Urine Color Yellow Urine Appearance Cloudy (Clear) Urine pH 5.5 (5.0-8.0) Ur Specific [place] 1.010 (1.001-1.035) Urine Protein 1+ H (Negative) Urine Glucose (UA) Negative (Negative) Urine Ketones Negative (Negative) Urine Blood Moderate H (Negative) Urine Nitrite Negative (Negative) Urine Bilirubin Negative (Negative) Urine Urobilinogen <2.0 (<2.0) mg/dL Ur Leukocyte Esterase Small H (Negative) Urine RBC 1 (0-5) /hpf Urine WBC 9 H (0-5) /hpf Ur Squamous Epith Cells 1 (0-4) /hpf Urine Bacteria Occasional H (None) /hpf Hyaline Casts 1 (0-2) /lpf Granular Casts 11 (0) /lpf Urine Mucus Rare H (None) /hpf Disposition Clinical Impression: Dehydration, Abdominal pain, Acute kidney injury, Transaminitis, Acidosis, Leukocytosis, Elevated lipase, Elevated lipase, Gallstones, Morbid obesity Disposition: OTHER INSTITUTION NOT DEFINED Time of Disposition: 21:01 - Out of Hospital Transfer - Req. Specs Out of Hospital Transfer - Requested Specifics: Other Emergency Center ([facility])
[2017-06-12 17:41] LABS: Potassium 4.3 mmol/L (3.5-5.1)
[2017-06-12 17:42] LABS: Calcium 8.3 mg/dL (8.4-10.2); Total Bilirubin 0.7 mg/dL (0.2-1.3); Total Protein 7.2 g/dL (6.3-8.2)
[2017-06-12 17:45] LABS: Anisocytosis Slight; Basophils # (A) 0.1 k/uL (0-0.2); Basophils % (A) 0 %; CH 29.9; CHCM 32.3; Eosinophils # (A) 0.2 k/uL (0-0.7); Eosinophils % (A) 2 %; HCT 43.5 % (39.0-53.0); HDW 3.39; HGB 14.3 gm/dL (13.0-17.5); Hypochromasia Slight; Luc # (Auto) 0.49; Luc % (Auto) 4; Lymphocytes # (A) 1.3 k/uL (1.0-4.8); Lymphocytes % (A) 9 %; MCH 30.6 pg (25.0-35.0); MCHC 32.8 g/dL (31.0-37.0); MCV 93.4 fL (80.0-100.0); Macrocytosis Slight; Mean Platelet Volume 7.5; Monocytes # (A) 1.2 k/uL (0-1.0); Monocytes % (A) 9 %; Neutrophils # (A) 10.1 k/uL (1.3-7.7); Neutrophils % (A) 76 %; RBC 4.65 m/uL (4.30-5.90); RDW 19.7 % (11.5-15.5); WBC 13.4 k/uL (3.8-10.6); WBC (Perox) 12.72
[2017-06-12 17:59] LABS: INR 1.2 (<1.2); Partial Thromboplastin Time 28.8 sec (22.0-30.0); Prothrombin Time 11.8 sec (9.0-12.0)
[2017-06-12 18:06] LABS: Appearance,Urine Cloudy (Clear); Bacteria,Urine Occasional /hpf; Bilirubin,Urine Negative (Negative); Glucose,Urine (UA) Negative (Negative); Granular Casts,Urine 11 /lpf (0); Ketones,Urine Negative (Negative); Leukocyte Esterase,Urine Small (Negative); Mucus,Urine Rare /hpf; Nitrite,Urine Negative (Negative); PH, Urine 5.5 (5.0-8.0); Particle Count 5899; Protein,Urine 1+ (Negative); RBC,Urine 1 /hpf (0-5); Squamous Epithelial Cell,Urine 1 /hpf (0-4); UA Billing (MACRO vs. MICRO) MICRO; Urobilinogen,Urine <2.0 mg/dL (<2.0); WBC,Urine 9 /hpf (0-5)
--- NOTE | 2017-06-12 18:59 | US ---
EXAMINATION TYPE: US gallbladder DATE OF EXAM: 06/12/2017 COMPARISON: NONE CLINICAL HISTORY: Pain. Abnormal labs EXAM MEASUREMENTS: Liver Length: 16.5 Gallbladder Wall: 0.34 CBD: 0.48 Right Kidney: 10.4 x 5.2 x 4.4 cm Pancreas: Obscured by bowel gas Liver: Increased attenuation Gallbladder: stones visualized Evidence for sonographic Goddard's sign: No CBD: wnl Right Kidney: Cystic area visualized lower pole measuring 2.0 x 2.0 x 2.0 cm Exam limited due to patient unable to roll or hold breath. IMPRESSION: Multiple gallstones. No dilated ducts. 2 cm cortical cyst on the lower pole right kidney.
--- NOTE | 2017-06-12 19:26 | XR ---
EXAMINATION TYPE: XR abdomen acute w cxr DATE OF EXAM: 06/12/2017 COMPARISON: 12/21/2013 HISTORY: Abdominal pain TECHNIQUE: 6 views FINDINGS: There is coarse interstitial infiltrate in the right lung. There is no gross heart failure. There is a left hip prosthesis with a mild protrusio. There is no sign of intestinal obstruction or pneumoperi toneum. There is gas throughout the colon. I see no sign of a mass. There is a right hip prosthesis. IMPRESSION: There is moderate large bowel gas suggestive of large bowel ileus. No free air. Pulmonary interstitia l fibrosis. Bilateral pleural scarring and calcification is present and unchanged compared to last ex am.
[2017-06-12] MEDS ORDERED: ONDANSETRON 4 MG/2 ML VIAL IVP STA (20:31)
[2017-06-12 21:57] VITALS: BP 105/64; PULSE 84; TEMP 98.3
== END 2017-06-12 22:10 | disposition other institution (70) ==
LOC: EC 16:53
DX: R74.0 Nonspecific elevation of levels of transaminase and lactic acid dehydrogenase [LDH] (principal); E86.0 Dehydration; N17.9 Acute kidney failure, unspecified; D72.829 Elevated white blood cell count, unspecified; R74.8 Abnormal levels of other serum enzymes; E87.2 Acidosis; K80.20 Calculus of gallbladder without cholecystitis without obstruction; E66.01 Morbid (severe) obesity due to excess calories; M10.9 Gout, unspecified; E78.5 Hyperlipidemia, unspecified; E11.9 Type 2 diabetes mellitus without complications; I10 Essential (primary) hypertension; J44.9 Chronic obstructive pulmonary disease, unspecified; Z87.891 Personal history of nicotine dependence; Z68.35 Body mass index [BMI] 35.0-35.9, adult; Z85.828 Personal history of other malignant neoplasm of skin; Z86.14 Personal history of Methicillin resistant Staphylococcus aureus infection; Z90.49 Acquired absence of other specified parts of digestive tract; Z96.653 Presence of artificial knee joint, bilateral; Z79.4 Long term (current) use of insulin; Z79.82 Long term (current) use of aspirin; Z79.899 Other long term (current) drug therapy; Z88.0 Allergy status to penicillin; Z88.1 Allergy status to other antibiotic agents; Z88.5 Allergy status to narcotic agent
CPT/HCPCS: 99285; 96374; 96375; 96361 ×4; 36415; 93005; 80053; 82150; 83605; 83690; 85025; 85610; 85730; 81001; 87040; 74022; 76705; J2405; C9113